=== PATIENT | female | born 1970 | race Caucasian/White ===

== ENCOUNTER 2018-09-03 22:19 | Observation (INO) | payer OTHER ==
--- NOTE | 2018-09-03 22:53 | ERPHSYRPT ---
- History of Present Illness Time Seen by Provider: 09/03/18 22:40 Historian: patient Exam Limitations: clinical condition Patient Subjective Stated Complaint: Pt c/o numerous complaints x 2-3 months, pt states this evening she started having severe chest and abd pain. pt adds she has had productive cough with nasal congestion x 2-3 days, dizziness x 2-3 days, vaginal bleeding x 2 weeks. has been having headaches for the last few months but worse today, et rash that was originally diagnosed as scabies but was resistent to repeated tx and then told was not scabies. pt c/o nausea and one episode of diarrhea yesterday. denies fever. Triage Nursing Assessment: [place]/warm/dry, resp easy, a&ox4, steady gait, no distress noted at this time. Physician History: PATIENT WITH A HISTORY OF SUBSTANCE ABUSE COMPLAINS OF INTERMITTENT GENERALIZED ABDOMINAL PAIN FOR 2-3 MONTHS, PRODUCTIVE COUGH YELLOW SPUTUM, NASAL CONGESTION. HAS ASSOCIATED CHEST PAIN LOWER RIB PAST COUPLE OF DAYS AND DIZZINESS. ADMITS TO TAKING HER FRIEND'S NEUROTIN 2 TABLETS. Timing/Duration: gradual onset Activities at Onset: none Quality: cramping Abdominal Pain Onset Location: generalized abdomen Pain Radiation: no radiation Severity of Pain-Max: moderate Severity of Pain-Current: moderate Modifying Factors: Improves With: coughing, position Associated Symptoms: chest pain Previous symptoms: same symptoms as today Allergies/Adverse Reactions: doxycycline Allergy (Verified 09/03/18 23:09) sulfamethoxazole [From Bactrim] Allergy (Verified 09/03/18 23:09) trimethoprim [From Bactrim] Allergy (Verified 09/03/18 23:09) Home Medications: No Reportable Medications [No Reported Medications] 09/03/18 [History] Hx Tetanus, Diphtheria Vaccination/Date Given: No Hx Influenza Vaccination/Date Given: No Hx Pneumococcal Vaccination/Date Given: No Immunizations Up to Date: No - Review of Systems Constitutional: No Fever, No Chills Eyes: No Symptoms Ears, Nose, & Throat: No Symptoms Respiratory: Cough, No Dyspnea Cardiac: No Symptoms, No Chest Pain, No Edema, No Syncope Abdominal/Gastrointestinal: Abdominal Pain, No Nausea, No Vomiting, No Diarrhea Genitourinary Symptoms: No Symptoms, No Dysuria Musculoskeletal: No Symptoms, No Back Pain, No Neck Pain Skin: No Rash Neurological: Dizziness, No Focal Weakness, No Sensory Changes Psychological: No Symptoms Endocrine: No Symptoms All Other Systems: Reviewed and Negative - Past Medical History Pertinent Past Medical History: Yes Psycho-Social History: Anxiety Other Medical History: back pain post fractures - Past Surgical History Past Surgical History: Yes Female Surgical History: Tubal Ligation - Social History Smoking Status: Current every day smoker Exposure to second hand smoke: Yes Drug Use: methamphetamines Patient Lives Alone: No - Female History Hx Last Menstrual Period: now Hx Now: No - Nursing Vital Signs Nursing Vital Signs: Initial Vital Signs Temperature 99.2 F 09/03/18 22:28 Pulse Rate 105 H 09/03/18 22:28 Respiratory Rate 16 09/03/18 22:28 Blood Pressure 124/95 09/03/18 22:28 O2 Sat by Pulse Oximetry 98 09/03/18 22:28 Pain Scale Pain Intensity 10 - Physical Exam General Appearance: lethargy (APPEARS DROWSY, EASILY AWAKENS TO VERBAL STIMULI) Eye Exam: PERRL/EOMI, eyes nml inspection Ears, Nose, Throat Exam: normal ENT inspection Neck Exam: normal inspection, non-tender, supple Respiratory Exam: normal breath sounds Cardiovascular Exam: regular rate/rhythm, normal heart sounds Gastrointestinal/Abdomen Exam: soft, normal bowel sounds (MINIMAL TENDERNESS) Back Exam: normal inspection, normal range of motion Neurologic Exam: alert, oriented x 3 Skin Exam: normal color, warm Lymphatic Exam: adenopathy SpO2 Interpretation: normal SpO2: 98 - Radiology Exams Chest X-ray Interpretation: Interpreted by me (RIGHT INFRAHILAR INFILTRATE) - CT Exams Abdomen/Pelvis CT Interpretation: Tele-radiologist Report (ABNORMAL APPEARANCE TO THE GALLBLADDER, STONES OF VARYING DENSITY IS SEEN PACKING THE LUMEN OF THE GALLBLADDER, WALL APPEARS THICKENED, ASSOCIATED PERICHOLECYSTIC FLUID COLLECTION. NO PATHOLOGIC DISTENTION COMMON BILE DUCT, MULTIPLE SMALL CALCIFIEC STONES,LOCATED IN THE COLLECTING SYSTEM OF BOTH KIDNEYS, NO HYDRONEPHROSIS, NO HYDROURETER, NO EVIDENCE OF APPENDICITIS) Ordered Tests: Active Orders 24 hr Category Date Time Status Up With Assistance ROUTINE Activity 09/04/18 02:17 Active Call Admit Doctor for Orders ON ADMISSION Care 09/04/18 02:18 Active Code Status Order ROUTINE Care 09/04/18 02:17 Active IV Care Q6H Care 09/04/18 02:17 Active Intake and Output Q12H Care 09/04/18 02:[address] in Observation ROUTINE Care 09/04/18 02:17 Active Vital Signs Q4H Care 09/04/18 02:17 Active NPO Diet 09/04/18 02:18 Active ABDOMEN AND PELVIS W/0 CONTRAS [CT] Stat Exams 09/04/18 00:43 Taken CHEST 1 VIEW (PORTABLE) Stat Exams 09/03/18 22:55 Taken AMYLASE Stat Lab 09/03/18 23:20 Completed BLOOD CULTURE Stat Lab 09/04/18 00:00 Received CBC W DIFF Stat Lab 09/03/18 23:20 Completed CMP Stat Lab 09/03/18 23:20 Completed HCG,QUALITATIVE URINE Stat Lab 09/03/18 22:40 Completed LIPASE Stat Lab 09/03/18 23:20 Completed PROTIME WITH INR Stat Lab 09/03/18 23:20 Completed TROPONIN Q3H Lab 09/03/18 23:21 Completed TROPONIN Q3H Lab 09/04/18 02:24 Received TROPONIN Q3H Lab 09/04/18 05:00 Ordered TROPONIN Q3H Lab 09/04/18 08:00 Ordered TROPONIN Q3H Lab 09/04/18 11:00 Ordered UA W/RFX UR CULTURE Stat Lab 09/03/18 22:40 Completed Urine Triage Profile Stat Lab 09/03/18 22:40 Completed Pulse Oximetry CONTINUOUS RT 09/04/18 02:19 Active Transfer Order Routine Transfer 09/04/18 Completed Medication Summary Generic Name Dose Route Start Last Admin Trade Name Freq PRN Reason Stop Dose Admin Piperacillin Sod/Tazobactam Sod 3.375 gm in 100 mls @ 200 mls/hr 09/04/18 06: 00 Zosyn 3.375gm/100 Ml D5w IV 10/04/18 05:59 Q6HT [facility] Sodium Chloride 1,000 mls @ 125 mls/hr 09/04/18 02:30 Sodium Chloride 0.9% 1000 Ml IV 10/04/18 02:29 .Q8H FEI Morphine Sulfate 4 mg 09/04/18 02:17 Morphine Sulfate 4 Mg Inj IV 09/09/18 02:16 Q4H PRN PRN PAIN Ondansetron HCl 4 mg 09/04/18 02:17 Zofran 4 Mg/2 Ml Vial IV 10/04/18 02:16 Q6H PRN PRN NAUSEA/VOMITING Pantoprazole Sodium 40 mg 09/04/18 10:00 Protonix 40 Mg Iv IV 10/04/18 09:59 Q24H10 FEI Discontinued Medications Generic Name Dose Route Start Last Admin Trade Name Dottie PRN Reason Stop Dose Admin Hydromorphone HCl 1 mg 09/04/18 02:04 09/04/18 02:29 Hydromorphone 1 Mg/Ml Ampule IV 09/04/18 02:05 1 mg STAT ONE Administration Hydromorphone HCl Confirm 09/04/18 02:22 Hydromorphone 1 Mg/Ml Ampule Administered 09/04/18 02:23 Dose 1 mg .ROUTE .STK-MED ONE Sodium Chloride 1,000 mls @ 500 mls/hr 09/03/18 23:00 09/03/18 23:13 Sodium Chloride 0.9% 1000 Ml IV 10/03/18 22:59 500 mls/hr .Q2H FEI Administration Piperacillin Sod/Tazobactam Sod 3.375 gm in 100 mls @ 200 mls/hr 09/04/18 02: 05 09/04/18 02:29 Zosyn 3.375gm/100 Ml D5w IV 09/04/18 02:34 200 mls/hr STAT STA 200 mls/hr Administration Piperacillin Sod/Tazobactam Sod Confirm 09/04/18 02:22 Zosyn 3.375gm/100 Ml D5w Administered 09/04/18 02:23 Dose 3.375 gm in 100 mls @ ud IV .STK-MED ONE Ondansetron HCl 4 mg 09/04/18 02:04 09/04/18 02:29 Zofran 4 Mg/2 Ml Vial IV 09/04/18 02:05 4 mg STAT ONE Administration Ondansetron HCl Confirm 09/04/18 02:22 Zofran 4 Mg/2 Ml Vial Administered 09/04/18 02:23 Dose 4 mg .ROUTE .STK-MED ONE Lab/Rad Data: Laboratory Result Diagrams 09/03/18 23:20 09/03/18 23:20 Laboratory Results 09/03/18 09/03/18 09/03/18 Range/Units 23:21 23:20 23:20 WBC (4.0-10.5) K/mm3 RBC (4.1-5.4) M/mm3 Hgb (12.0-16.0) gm/dl Hct (35-47) % MCV (78-100) fl MCH (26-32) pg MCHC (32-36) g/dl RDW (11.5-14.0) % Plt Count (150-450) K/mm3 MPV (6-9.5) fl Gran % (36.0-66.0) % Eos # (Auto) (0-0.5) Absolute Lymphs (auto) (1.0-4.6) Absolute Monos (auto) (0.0-1.3) Lymphocytes % (24.0-44.0) % Monocytes % (0.0-12.0) % Eosinophils % (0.00-5.0) % Basophils % (0.0-0.4) % Absolute Granulocytes (1.4-6.9) Basophils # (0-0.4) PT 11.5 (9.95-12.35) SECONDS INR 0.99 (0.8-3.0) Sodium (137-145) mmol/L Potassium (3.5-5.1) mmol/L Chloride (98-107) mmol/L Carbon Dioxide (22-30) mmol/L Anion Gap (5-15) MEQ/L BUN (7-17) mg/dL Creatinine (0.52-1.04) mg/dL Estimated GFR ML/MIN Glucose (74-106) mg/dL Calcium (8.4-10.2) mg/dL Total Bilirubin (0.2-1.3) mg/dL AST (14-36) U/L ALT (0-35) U/L Alkaline Phosphatase (38-126) U/L Troponin I 0.012 (0.000-0.034) ng/mL Serum Total Protein (6.3-8.2) g/dL Albumin (3.5-5.0) g/dL Amylase (30-110) U/L Lipase (23-300) U/L Urine Color (YELLOW) Urine Appearance (CLEAR) Urine pH (5-6) Ur Specific Halfway (1.005-1.025) Urine Protein (Negative) Urine Ketones (NEGATIVE) Urine Blood (0-5) [place]/ul Urine Nitrite (NEGATIVE) Urine Bilirubin (NEGATIVE) Urine Urobilinogen (0-1) mg/dL Ur Leukocyte Esterase (NEGATIVE) Urine WBC (Auto) (0-5) /HPF Urine RBC (Auto) (0-2) /HPF U Epithel Cells (Auto) (FEW) /HPF Urine Bacteria (Auto) (NEGATIVE) /HPF Urine Mucus (Auto) (NEGATIVE) /HPF Urine Culture Reflexed (NO) Urine Glucose (NEGATIVE) mg/dL Urine HCG, Qual (Negative) Urine Opiates Level (NEGATIVE) Ur Methadone (NEGATIVE) Urine Barbiturates (NEGATIVE) Ur Phencyclidine (PCP) (NEGATIVE) Urine Amphetamine (NEGATIVE) U Benzodiazepine Level (NEGATIVE) Urine Cocaine (NEGATIVE) Urine Marijuana (THC) (NEGATIVE) Influenza Type A Ag NEGATIVE (NEGATIVE) Influenza Type B Ag NEGATIVE (NEGATIVE) RSV (PCR) NEGATIVE (Negative) 09/03/18 09/03/18 09/03/18 Range/Units 23:20 23:20 22:40 WBC 10.9 H (4.0-10.5) K/mm3 RBC 3.97 L (4.1-5.4) M/mm3 Hgb 12.1 (12.0-16.0) gm/dl Hct 36.6 (35-47) % MCV 92.2 (78-100) fl MCH 30.4 (26-32) pg MCHC 33.1 (32-36) g/dl RDW 13.7 (11.5-14.0) % Plt Count 326 (150-450) K/mm3 MPV 11.0 H (6-9.5) fl Gran % 58.1 (36.0-66.0) % Eos # (Auto) 0.86 H (0-0.5) Absolute Lymphs (auto) 2.39 (1.0-4.6) Absolute Monos (auto) 1.28 (0.0-1.3) Lymphocytes % 21.9 L (24.0-44.0) % Monocytes % 11.7 (0.0-12.0) % Eosinophils % 7.9 H (0.00-5.0) % Basophils % 0.4 (0.0-0.4) % Absolute Granulocytes 6.34 (1.4-6.9) Basophils # 0.04 (0-0.4) PT (9.95-12.35) SECONDS INR (0.8-3.0) Sodium 139 (137-145) mmol/L Potassium 4.4 (3.5-5.1) mmol/L Chloride 104 (98-107) mmol/L Carbon Dioxide 24 (22-30) mmol/L Anion Gap 16.0 H (5-15) MEQ/L BUN 14 (7-17) mg/dL Creatinine 0.62 (0.52-1.04) mg/dL Estimated GFR > 60.0 ML/MIN Glucose 99 (74-106) mg/dL Calcium 9.4 (8.4-10.2) mg/dL Total Bilirubin 0.60 (0.2-1.3) mg/dL AST 50 H (14-36) U/L ALT 43 H (0-35) U/L Alkaline Phosphatase 136 H (38-126) U/L Troponin I (0.000-0.034) ng/mL Serum Total Protein 7.3 (6.3-8.2) g/dL Albumin 3.9 (3.5-5.0) g/dL Amylase 47 (30-110) U/L Lipase 33 (23-300) U/L Urine Color (YELLOW) Urine Appearance (CLEAR) Urine pH (5-6) Ur Specific Halfway (1.005-1.025) Urine Protein (Negative) Urine Ketones (NEGATIVE) Urine Blood (0-5) Kayden/ul Urine Nitrite (NEGATIVE) Urine Bilirubin (NEGATIVE) Urine Urobilinogen (0-1) mg/dL Ur Leukocyte Esterase (NEGATIVE) Urine WBC (Auto) (0-5) /HPF Urine RBC (Auto) (0-2) /HPF U Epithel Cells (Auto) (FEW) /HPF Urine Bacteria (Auto) (NEGATIVE) /HPF Urine Mucus (Auto) (NEGATIVE) /HPF Urine Culture Reflexed (NO) Urine Glucose (NEGATIVE) mg/dL Urine HCG, Qual NEGATIVE (Negative) Urine Opiates Level (NEGATIVE) Ur Methadone (NEGATIVE) Urine Barbiturates (NEGATIVE) Ur Phencyclidine (PCP) (NEGATIVE) Urine Amphetamine (NEGATIVE) U Benzodiazepine Level (NEGATIVE) Urine Cocaine (NEGATIVE) Urine Marijuana (THC) (NEGATIVE) Influenza Type A Ag (NEGATIVE) Influenza Type B Ag (NEGATIVE) RSV (PCR) (Negative) 04/11/19 04/11/19 Range/Units 22:40 22:40 WBC (4.0-10.5) K/mm3 RBC (4.1-5.4) M/mm3 Hgb (12.0-16.0) gm/dl Hct (35-47) % MCV (78-100) fl MCH (26-32) pg MCHC (32-36) g/dl RDW (11.5-14.0) % Plt Count (150-450) K/mm3 MPV (6-9.5) fl Gran % (36.0-66.0) % Eos # (Auto) (0-0.5) Absolute Lymphs (auto) (1.0-4.6) Absolute Monos (auto) (0.0-1.3) Lymphocytes % (24.0-44.0) % Monocytes % (0.0-12.0) % Eosinophils % (0.00-5.0) % Basophils % (0.0-0.4) % Absolute Granulocytes (1.4-6.9) Basophils # (0-0.4) PT (9.95-12.35) SECONDS INR (0.8-3.0) Sodium (137-145) mmol/L Potassium (3.5-5.1) mmol/L Chloride (98-107) mmol/L Carbon Dioxide (22-30) mmol/L Anion Gap (5-15) MEQ/L BUN (7-17) mg/dL Creatinine (0.52-1.04) mg/dL Estimated GFR ML/MIN Glucose (74-106) mg/dL Calcium (8.4-10.2) mg/dL Total Bilirubin (0.2-1.3) mg/dL AST (14-36) U/L ALT (0-35) U/L Alkaline Phosphatase (38-126) U/L Troponin I (0.000-0.034) ng/mL Serum Total Protein (6.3-8.2) g/dL Albumin (3.5-5.0) g/dL Amylase (30-110) U/L Lipase (23-300) U/L Urine Color YELLOW (YELLOW) Urine Appearance SLIGHTLY CLOUDY (CLEAR) Urine pH 7.0 (5-6) Ur Specific Halfway 1.017 (1.005-1.025) Urine Protein NEGATIVE (Negative) Urine Ketones NEGATIVE (NEGATIVE) Urine Blood MODERATE (0-5) Kayden/ul Urine Nitrite NEGATIVE (NEGATIVE) Urine Bilirubin NEGATIVE (NEGATIVE) Urine Urobilinogen NEGATIVE (0-1) mg/dL Ur Leukocyte Esterase NEGATIVE (NEGATIVE) Urine WBC (Auto) NONE (0-5) /HPF Urine RBC (Auto) 3-5 (0-2) /HPF U Epithel Cells (Auto) RARE (FEW) /HPF Urine Bacteria (Auto) NONE (NEGATIVE) /HPF Urine Mucus (Auto) SLIGHT (NEGATIVE) /HPF Urine Culture Reflexed NO (NO) Urine Glucose NEGATIVE (NEGATIVE) mg/dL Urine HCG, Qual (Negative) Urine Opiates Level NEGATIVE (NEGATIVE) Ur Methadone NEGATIVE (NEGATIVE) Urine Barbiturates NEGATIVE (NEGATIVE) Ur Phencyclidine (PCP) NEGATIVE (NEGATIVE) Urine Amphetamine POSITIVE (NEGATIVE) U Benzodiazepine Level NEGATIVE (NEGATIVE) Urine Cocaine NEGATIVE (NEGATIVE) Urine Marijuana (THC) NEGATIVE (NEGATIVE) Influenza Type A Ag (NEGATIVE) Influenza Type B Ag (NEGATIVE) RSV (PCR) (Negative) - Progress Progress Note: 09/03/18 23:02 IV NORMAL SALINE 500ML/HR, ZOFRAN 4MG, DILAUDID 1MG, ZOSYN 3.375GM IVPB AFTER 2 SETS OF BLOOD CULTURES OBTAINED 09/04/18 02:[address] Galicia (DISCUSSED WITH DR GALICIA AT 0200 FOR OBSERVATION, DR Peter PERSAUD CONSULTED FOR SURGICAL CONSULT AT 0210) - Departure Departure Disposition: Observation Clinical Impression: ACUTE CHOLECYSTITIS/CHOLELITHIASIS Condition: Stable Critical Care Time: No
[2018-09-03] MEDS ORDERED: Sodium Chloride 0.9% 1000 ML 1,000 ML IV SCH (23:00)
[2018-09-03] MEDS ORDERED: Sodium Chloride 0.9% 1000 ML 1,000 ML ONE (23:08)
[2018-09-03 23:15] LABS: Appearance SLIGHTLY CLOUDY (CLEAR); Bilirubin NEGATIVE (NEGATIVE); Blood MODERATE Ery/ul (0-5); Epithelial Cells RARE /HPF (FEW); Glucose NEGATIVE (NEGATIVE); Ketones NEGATIVE (NEGATIVE); Leukocyte Esterase NEGATIVE (NEGATIVE); Mucus SLIGHT /HPF (NEGATIVE); Nitrite NEGATIVE (NEGATIVE); Protein,Urine Dip NEGATIVE (Negative); Specific Gravity 1.017 (1.005-1.025); Urobilinogen NEGATIVE mg/dL (0-1)
[2018-09-03 23:24] LABS: BASOPHIL % 0.4 % (0.0-0.4); Basophil (Absolute #) 0.04 (0-0.4); Eosinophil % 7.9 % (0.00-5.0); Eosinophil (Absolute #) 0.86 (0-0.5); Granulocyte Absolute (ANC) 6.34 (1.4-6.9); Granulocytes % 58.1 % (36.0-66.0); Hematocrit 36.6 % (35-47); Hemoglobin 12.1 gm/dl (12.0-16.0); Lymphocyte (Absolute #) 2.39 (1.0-4.6); Lymphocytes % 21.9 % (24.0-44.0); Mean Cell Volume 92.2 fl (78-100); Mean Corpuscular Hgb Concent. 33.1 g/dl (32-36); Monocyte (Absolute #) 1.28 (0.0-1.3); Monocytes % 11.7 % (0.0-12.0); Platelet Count 326 K/mm3 (150-450); Red Blood Count 3.97 M/mm3 (4.1-5.4); Red Cell Distribution Width 13.7 % (11.5-14.0); White Blood Count 10.9 K/mm3 (4.0-10.5)
[2018-09-03 23:25] LABS: Mean Corpuscular Hemoglobin 30.4 pg (26-32)
[2018-09-03 23:25] LABS: Barbiturate,Urine NEGATIVE (NEGATIVE); Benzodiazepine,Urine NEGATIVE (NEGATIVE); Cocaine,Urine NEGATIVE (NEGATIVE); Methadone,Urine NEGATIVE (NEGATIVE); Opiate,Urine NEGATIVE (NEGATIVE); PCP,Urine NEGATIVE (NEGATIVE); THC,Urine NEGATIVE (NEGATIVE)
[2018-09-03 23:47] LABS: INR 0.99 (0.8-3.0); PROTIME 11.5 SECONDS (9.95-12.35)
[2018-09-03 23:51] LABS: ALBUMIN 3.9 g/dL (3.5-5.0); ALKALINE PHOSPHATASE 136 U/L (38-126); AMYLASE 47 U/L (30-110); BLOOD UREA NITROGEN 14 mg/dL (7-17); CHLORIDE 104 mmol/L (98-107); Calcium 9.4 mg/dL (8.4-10.2); Carbon Dioxide 24 mmol/L (22-30); Creatinine 1 0.62 mg/dL (0.52-1.04); Glucose 99 mg/dL (74-106); LIPASE 33 U/L (23-300); Potassium 4.4 mmol/L (3.5-5.1); SGOT/AST 50 U/L (14-36); SGPT/ALT 43 U/L (0-35); SODIUM 139 mmol/L (137-145); Total Protein 7.3 g/dL (6.3-8.2)
[2018-09-03 23:56] LABS: Amphetamine,Urine POSITIVE (NEGATIVE)
[2018-09-04 00:17] LABS: INFLUENZA A NEGATIVE (NEGATIVE); INFLUENZA B NEGATIVE (NEGATIVE); RESPIRATORY SYNCTIAL VIRUS NEGATIVE (Negative)
[2018-09-04] MEDS ORDERED: Zofran 4 MG/2 ML VIAL IV ONE (02:04)
[2018-09-04] MEDS ORDERED: Hydromorphone 1 mg/ml Ampule IV ONE (02:04)
[2018-09-04] MEDS ORDERED: Zosyn 3.375GM/100 Ml D5W 3.375 GM/100 ML IVPB IV STA (02:05)
[2018-09-04] MEDS ORDERED: MORPHINE SULFATE 4 MG INJ IV PRN (02:17)
[2018-09-04] MEDS ORDERED: Zofran 4 MG/2 ML VIAL IV PRN (02:17)
[2018-09-04] MEDS ORDERED: Hydromorphone 1 mg/ml Ampule ONE (02:22)
[2018-09-04] MEDS ORDERED: Zofran 4 MG/2 ML VIAL ONE (02:22)
[2018-09-04] MEDS ORDERED: Zosyn 3.375GM/100 Ml D5W 3.375 GM/100 ML IVPB IV ONE (02:22)
[2018-09-04] MEDS: Sodium Chloride 0.9% 1000 ML 1,000 ML IV SCH ×2 (03:39→14:39)
[2018-09-04] MEDS ORDERED: Zosyn 3.375GM/100 Ml D5W 3.375 GM/100 ML IVPB IV SCH ×2 (06:00→16:00)
--- NOTE | 2018-09-04 08:09 | HP ---
CHIEF COMPLAINT: Abdominal pain, nausea. HISTORY OF PRESENT ILLNESS: The patient reports that the pain in the right upper quadrant she has been having off and on for the past couple of years has gotten worse recently. The patient reports she had been in the emergency room at other facilities, [facility] recently, but she had cursory ultrasound done in the emergency room by the emergency room doctor who told her everything was normal. However the patient continued to have problems. The patient has other complaints concerning for the possibility of scabies infections and infections on her fingertips. The patient is currently not seeing a regular physician. MEDICATIONS: She has no home medications. ALLERGIES: BACTRIM. PHYSICAL EXAMINATION: Revealed a disheveled appearing 48 year-old white female who rambles during the interview with different complaints. The patient's vital signs showed a temperature 99.2F, pulse 105, respiratory rate 16, blood pressure 124/95. O2 saturation 98%. HEENT: Normocephalic, atraumatic. Pupils equal round reactive to light. Extraocular movements intact. Oropharynx is pink and moist. NECK: Supple without lymphadenopathy, thyromegaly or JVD. CHEST: Clear to auscultation. HEART: Regular rate and rhythm without murmurs, rubs or gallops. ABDOMEN: Tender in the right upper quadrant. No palpable masses were felt. EXTREMITIES: Without cyanosis, clubbing or edema. NEUROLOGIC: The patient is alert and oriented x3 with no focal deficits noted. LAB DATA AND TESTS: CT scan concerning for distended gallbladder within the field with mixed density gallstones and some gallbladder wall thickening and pericholecystic fluid collection, bilateral nonobstructing renal stones and possible infiltrate in the lateral segment of the right mid lung. The patient's lab studies showed a troponin less than 0.012. Pro-time 0.99. Influenza A, B and respiratory syncytial virus are negative. The patient's white count was slightly elevated at 10,000. Her hemoglobin was normal. PLT count was normal. The liver enzymes were slightly elevated with an AST of 15, ALT 43, alkaline phosphatase 136. Electrolytes were normal. ASSESSMENT: A patient with right upper quadrant abdominal pain which is chronic in nature with findings on CT scan concerning for acute cholecystitis. The patient has been admitted to the hospital for IV antibiotics and surgical consultation. The patient's other complaints have to do with possible scabies infections for which she reports she was treated for previously and she does have findings in her skin consistent with this. The patient otherwise appears to be essentially healthy. She did have significant finding of urine positive for amphetamines. The patient is currently placed on Zosyn, IV fluids, gut rest and surgical consultation.
--- NOTE | 2018-09-04 08:50 | XRAY ---
Indication: Abdomen pain. Multiple contiguous axial images obtained through the abdomen and pelvis without contrast as ordered. Comparison: None Lung bases demonstrates patchy right middle lobe interstitial alveolar opacity and calcified granuloma. Left lung bases clear. Heart is not enlarged. Small hiatal hernia. Stomach is distended with food/fluid. Noncontrasted stomach and bowel loops appear nonobstructed. Appendix not seen. Mild diffuse scattered colonic fecal debris. Gallbladder is distended with multiple gallstones and sludge. Query gallbladder wall thickening/stranding. There is hepatosplenomegaly with liver measuring 21 cm and the spleen measuring 12.6 cm. Nonobstructing bilateral renal micro-calculi. Bilateral tubal ligation clips. No free fluid/air. Remaining liver, pancreas, spleen, adrenal glands, kidneys, ureters, bladder, uterus, and aorta appear unremarkable for noncontrast exam. Osseous structures intact with remote-appearing L1 compression deformity with approximately 50% height loss. Also L1-L2 opposing endplate sclerosis/spurring either degenerative versus old injury. Old right inferior pubic ramus fracture. Impression: 1. Abnormal distended gallbladder with gallstones and sludge. Query gallbladder wall thickening/stranding concerning for cholecystitis. Sonogram may yield further information. 2. Fecal stasis without obstruction and small hiatal hernia. 3. Hepatosplenomegaly and nonobstructing bilateral renal micro-calculi. 4. Right middle lobe interstitial alveolar opacity. Rule out inflammatory/infectious process. 5. Incidental chronic bony findings. Comment: Preliminary interpretation was made by [facility]. No critical discrepancy. CT DI 20.10
--- NOTE | 2018-09-04 08:52 | XRAY ---
Indication: Cough. Comparison: None Portable chest demonstrates subtle asymmetric right infrahilar infiltrate/atelectasis and calcified granuloma. Remaining heart and lungs unremarkable. Bony thorax intact with old right clavicle fracture.
[2018-09-04] MEDS ORDERED: PROTONIX 40 MG IV IV SCH (10:00)
--- NOTE | 2018-09-04 11:10 | XRAY ---
Indication: Abnormal gallbladder on recent CT. Two-dimensional gallbladder sonogram performed. Comparison: None Gallbladder is abnormally distended up to 14.5 cm in length with numerous gallstones. Gallbladder wall is thickened measuring 4 mm. No pericholecystic fluid. Common bile duct measures 6.2 mm. No intrahepatic biliary distention. Remaining visualized portions of the liver, pancreas, and right kidney appear sonographically normal. Right kidney measures 11.2 cm in length. No ascites. Impression: Distended gallbladder with cholelithiasis and wall thickening but no pericholecystic fluid. Rule out chronic cholecystitis.
[2018-09-04 14:20] VITALS: O2SAT 97
[2018-09-04 16:59] VITALS: BP 102/59; PULSE 83
== END 2018-09-04 18:03 | disposition left against medical advice (07) ==
LOC: ED 22:19 → MED SURG 09-04 02:51
PROVIDERS: ADMIT Family Medicine; ATTEND Family Medicine
DX: K81.0 Acute cholecystitis (principal); R10.11 Right upper quadrant pain
CPT/HCPCS: 36415; 71045; 74176; 76705; 80053; 80307; 81001; 82150; 83690; 84484; 84703; 85025; 85610; 87040; 87631; 94762; 96360; 96361; 96365; 96374; 96375; 99285; G0378; J1170; J2405; J2543

== ENCOUNTER 2020-10-02 07:16 | Emergency (ER) | payer OTHER ==
[2020-10-02] MEDS ORDERED: Sodium Chloride 0.9% 1000 ML 1,000 ML IV STA (07:45)
[2020-10-02] MEDS ORDERED: TORAdol 30 mg Injection IV ONE (07:48)
[2020-10-02] MEDS ORDERED: Compazine 10 MG/2 ML IV ONE (07:49)
[2020-10-02] MEDS ORDERED: Sodium Chloride 0.9% 1000 ML 1,000 ML ONE (07:57)
[2020-10-02] MEDS ORDERED: Compazine 10 MG/2 ML ONE (07:57)
[2020-10-02] MEDS ORDERED: TORAdol 30 mg Injection ONE (07:57)
--- NOTE | 2020-10-02 07:58 | ERPHSYRPT ---
- History of Present Illness Time Seen by Provider: 10/02/20 07:30 Source: patient Exam Limitations: no limitations Patient Subjective Stated Complaint: Pt states that she took a fluconazole last night and has been sick since with a headache and N&V Triage Nursing Assessment: Pt brought to the ER by her boyfriend, hypotensive, rates pain 10/10, appears to be mentally challenged, states that fluconazole made her sick once before, pulses normal, doesn't appear to be in any distress Physician History: Patient is a 50-year-old female presents to our ED with her significant other with complaints of a headache rated 7 out of 10. Headache started yesterday evening. Headache is associated with nausea and vomiting. Patient states that she took fluconazole for her finger nail fungus. Shortly thereafter she developed a headache primarily at the top and front aspect of her head. Patient has had fluconazole in the past and it also created a significant headache at that time. No trauma. No fever. No neck pain. No photophobia. No chest pain or shortness of breath. Symptoms are constant. Symptoms are moderate in intensity. Patient took [id number] NSAID with little to no relief. Patient denies any urinary symptoms. Patient states she is otherwise healthy. Patient voices no other complaints or concerns at this time. Timing/Duration: yesterday Severity: moderate Modifying Factors: Improves With: nothing Associated Symptoms: nausea, vomiting, No shortness of breath, No diaphoresis, No cough, No chest pain, No fever, No headaches, No loss of appetite Allergies/Adverse Reactions: doxycycline Allergy (Verified 10/02/20 07:32) sulfamethoxazole [From Bactrim] Allergy (Verified 10/02/20 07:32) trimethoprim [From Bactrim] Allergy (Verified 10/02/20 07:32) Home Medications: No Reportable Medications [No Reported Medications] 10/02/20 [History] Hx Tetanus, Diphtheria Vaccination/Date Given: No Hx Influenza Vaccination/Date Given: No Hx Pneumococcal Vaccination/Date Given: No Travel Risk - International Travel Have you traveled outside of the country in past 3 weeks: No - Coronavirus Screening Are you exhibiting any of the following symptoms?: No Close contact with a COVID-19 positive Pt in past 14-21 Days: No - Vaccine Status Have you recieved a Covid-19 vaccination: No - Review of Systems Constitutional: No Symptoms, No Fever, No Chills Eyes: No Symptoms Ears, Nose, & Throat: No Symptoms Respiratory: No Symptoms, No Cough, No Dyspnea Cardiac: No Symptoms, No Chest Pain, No Edema, No Syncope Abdominal/Gastrointestinal: No Symptoms, No Abdominal Pain, No Nausea, No Vomiting, No Diarrhea Genitourinary Symptoms: No Symptoms, No Dysuria Musculoskeletal: No Symptoms, No Back Pain, No Neck Pain Skin: No Symptoms, No Rash Neurological: No Symptoms, No Dizziness, No Focal Weakness, No Sensory Changes Psychological: No Symptoms Endocrine: No Symptoms Hematologic/Lymphatic: No Symptoms Immunological/Allergic: No Symptoms All Other Systems: Reviewed and Negative - Past Medical History Pertinent Past Medical History: Yes Psycho-Social History: Anxiety Other Medical History: back pain, post fractures - Past Surgical History Past Surgical History: Yes Female Surgical History: Tubal Ligation - Social History Smoking Status: Current every day smoker Exposure to second hand smoke: Yes Drug Use: methamphetamines Patient Lives Alone: No - Female History Hx Now: No (tubal) - Nursing Vital Signs Nursing Vital Signs: Initial Vital Signs Temperature 98.0 F 10/02/20 07:20 Pulse Rate 93 H 10/02/20 07:20 Blood Pressure 90/54 10/02/20 07:20 O2 Sat by Pulse Oximetry 96 10/02/20 07:20 Pain Scale Pain Intensity 10 - Physical Exam General Appearance: no apparent distress, alert Eye Exam: PERRL/EOMI, eyes nml inspection Ears, Nose, Throat Exam: normal ENT inspection, TMs normal, pharynx normal, moist mucous membranes Neck Exam: normal inspection, non-tender, supple, full range of motion Respiratory Exam: normal breath sounds, lungs clear, No respiratory distress Cardiovascular Exam: regular rate/rhythm, normal heart sounds, normal peripheral pulses Gastrointestinal/Abdomen Exam: soft, normal bowel sounds, No tenderness, No mass Back Exam: normal inspection, normal range of motion, No CVA tenderness, No vertebral tenderness Extremity Exam: normal inspection, normal range of motion, pelvis stable Neurologic Exam: alert, oriented x 3, cooperative, normal mood/affect, nml cerebellar function, nml station & gait, sensation nml, No motor deficits Skin Exam: normal color, warm, dry, No rash Lymphatic Exam: No adenopathy SpO2 Interpretation: normal SpO2: 96 O2 Delivery: Room Air - Course Nursing assessment & vital signs reviewed: Yes - CT Exams Head CT Interpretation: Tele-radiologist Report (Normal CT head without contrast exam.) Ordered Tests: Active Orders 24 hr Category Date Time Status IV Insertion STAT Care 10/02/20 07:45 Active Pulse Oximetry (ED) STAT Care 10/02/20 07:45 Active HEAD WITHOUT CONTRAST [CT] Stat Exams 10/02/20 07:45 Completed BLOOD CULTURE Stat Lab 10/02/20 08:49 Ordered CBC W DIFF Stat Lab 10/02/20 07:52 Completed CMP Stat Lab 10/02/20 07:52 Completed HCG,QUALITATIVE URINE Stat Lab 10/02/20 07:55 Completed POCT GLUCOSE Stat Lab 10/02/20 07:26 Completed POCT GLUCOSE Stat Lab 10/02/20 07:26 Completed UA W/RFX UR CULTURE Stat Lab 10/02/20 07:55 Completed Medication Summary Discontinued Medications Generic Name Dose Route Start Last Admin Trade Name Freq PRN Reason Stop Dose Admin Sodium Chloride 1,000 mls @ 999 mls/hr 10/02/20 07:45 10/02/20 08:01 Sodium Chloride 0.9% 1000 Ml IV 10/02/20 08:45 999 mls/hr .Q1H1M STA Administration Sodium Chloride Confirm 10/02/20 07:57 Sodium Chloride 0.9% 1000 Ml Administered 10/02/20 07:58 Dose 1,000 mls @ ud .ROUTE .STK-MED ONE Ketorolac Tromethamine 30 mg 10/02/20 07:48 10/02/20 08:01 Toradol 30 Mg Injection IV 10/02/20 07:49 30 mg STAT ONE Administration Ketorolac Tromethamine Confirm 10/02/20 07:57 Toradol 30 Mg Injection Administered 10/02/20 07:58 Dose 30 mg .ROUTE .STK-MED ONE Prochlorperazine Edisylate 10 mg 10/02/20 07:49 10/02/20 08:01 Compazine 10 Mg/2 Ml IV 10/02/20 07:50 10 mg STAT ONE Administration Prochlorperazine Edisylate Confirm 10/02/20 07:57 Compazine 10 Mg/2 Ml Administered 10/02/20 07:58 Dose 10 mg .ROUTE .STK-MED ONE Lab/Rad Data: Laboratory Result Diagrams 10/02/20 07:52 10/02/20 07:52 Laboratory Results 10/02/20 10/02/20 10/02/20 Range/Units 07:55 07:55 07:52 WBC (4.0-10.5) K/mm3 RBC (4.1-5.4) M/mm3 Hgb (12.0-16.0) gm/dl Hct (35-47) % MCV (78-100) fl MCH (26-32) pg MCHC (32-36) g/dl RDW (11.5-14.0) % Plt Count (150-450) K/mm3 MPV (7.5-11.0) fl Gran % (36.0-66.0) % Eos # (Auto) (0-0.5) Absolute Lymphs (auto) (1.0-4.6) Absolute Monos (auto) (0.0-1.3) Lymphocytes % (24.0-44.0) % Monocytes % (0.0-12.0) % Eosinophils % (0.00-5.0) % Basophils % (0.0-0.4) % Absolute Granulocytes (1.4-6.9) Basophils # (0-0.4) Sodium 136 L (137-145) mmol/L Potassium 3.9 (3.5-5.1) mmol/L Chloride 100 (98-107) mmol/L Carbon Dioxide 25 (22-30) mmol/L Anion Gap 14.4 (5-15) MEQ/L BUN 16 (7-17) mg/dL Creatinine 0.68 (0.52-1.04) mg/dL Estimated GFR > 60.0 ML/MIN Glucose 109 H (74-106) mg/dL POC Glucometer (74 to 106) mg/dL Calcium 9.4 (8.4-10.2) mg/dL Total Bilirubin 0.70 (0.2-1.3) mg/dL AST 88 H (14-36) U/L ALT 96 H (0-35) U/L Alkaline Phosphatase 183 H (38-126) U/L Serum Total Protein 7.4 (6.3-8.2) g/dL Albumin 4.3 (3.5-5.0) g/dL Urine Color KETTY (YELLOW) Urine Appearance CLEAR (CLEAR) Urine pH 6.0 (5-6) Ur Specific [place] 1.024 (1.005-1.025) Urine Protein NEGATIVE (Negative) Urine Ketones NEGATIVE (NEGATIVE) Urine Blood NEGATIVE (0-5) Kayden/ul Urine Nitrite NEGATIVE (NEGATIVE) Urine Bilirubin NEGATIVE (NEGATIVE) Urine Urobilinogen NEGATIVE (0-1) mg/dL Ur Leukocyte Esterase NEGATIVE (NEGATIVE) Urine WBC (Auto) 0-2 (0-5) /HPF Urine RBC (Auto) 0-2 (0-2) /HPF U Epithel Cells (Auto) RARE (FEW) /HPF Urine Bacteria (Auto) NONE (NEGATIVE) /HPF Urine Mucus (Auto) SLIGHT (NEGATIVE) /HPF Urine Culture Reflexed NO (NO) Urine Glucose NEGATIVE (NEGATIVE) mg/dL Urine HCG, Qual NEGATIVE (Negative) 10/02/20 10/02/20 10/02/20 Range/Units 07:52 07:26 07:26 WBC 15.9 H (4.0-10.5) K/mm3 RBC 4.50 (4.1-5.4) M/mm3 Hgb 13.8 (12.0-16.0) gm/dl Hct 40.5 (35-47) % MCV 90.0 (78-100) fl MCH 30.7 (26-32) pg MCHC 34.1 (32-36) g/dl RDW 13.2 (11.5-14.0) % Plt Count 405 (150-450) K/mm3 MPV 10.7 (7.5-11.0) fl Gran % 86.1 H (36.0-66.0) % Eos # (Auto) 0.90 H (0-0.5) Absolute Lymphs (auto) 0.61 L (1.0-4.6) Absolute Monos (auto) 0.69 (0.0-1.3) Lymphocytes % 3.8 L (24.0-44.0) % Monocytes % 4.3 (0.0-12.0) % Eosinophils % 5.7 H (0.00-5.0) % Basophils % 0.1 (0.0-0.4) % Absolute Granulocytes 13.67 H (1.4-6.9) Basophils # 0.02 (0-0.4) Sodium (137-145) mmol/L Potassium (3.5-5.1) mmol/L Chloride (98-107) mmol/L Carbon Dioxide (22-30) mmol/L Anion Gap (5-15) MEQ/L BUN (7-17) mg/dL Creatinine (0.52-1.04) mg/dL Estimated GFR ML/MIN Glucose (74-106) mg/dL POC Glucometer 97 97 (74 to 106) mg/dL Calcium (8.4-10.2) mg/dL Total Bilirubin (0.2-1.3) mg/dL AST (14-36) U/L ALT (0-35) U/L Alkaline Phosphatase (38-126) U/L Serum Total Protein (6.3-8.2) g/dL Albumin (3.5-5.0) g/dL Urine Color (YELLOW) Urine Appearance (CLEAR) Urine pH (5-6) Ur Specific [place] (1.005-1.025) Urine Protein (Negative) Urine Ketones (NEGATIVE) Urine Blood (0-5) Kayden/ul Urine Nitrite (NEGATIVE) Urine Bilirubin (NEGATIVE) Urine Urobilinogen (0-1) mg/dL Ur Leukocyte Esterase (NEGATIVE) Urine WBC (Auto) (0-5) /HPF Urine RBC (Auto) (0-2) /HPF U Epithel Cells (Auto) (FEW) /HPF Urine Bacteria (Auto) (NEGATIVE) /HPF Urine Mucus (Auto) (NEGATIVE) /HPF Urine Culture Reflexed (NO) Urine Glucose (NEGATIVE) mg/dL Urine HCG, Qual (Negative) - Progress Progress: improved Progress Note: 10/02/20 09:06 Patient reassessed. Headache significantly improved. Repeat neuro exam within normal limits. Patient states he is ready for discharge. Patient has a leukocytosis. No fever. No nidus of infection observed. Blood cultures obtained. Mild hyponatremic. Patient received a liter IV fluids. No nausea or vomiting observed in our ED. Patient denies feeling nauseous. Vital stable. Patient blood pressure slightly on the lower side upon arrival. After liter of IV fluids blood pressure normalized to 117/82. There is a slight elevation in liver enzymes however this is likely due to the oral antifungal medication she is currently taking. Will discharge at this time. Patient follow-up with her primary care doctor within 48 hours for reevaluation. 10/02/20 09:09 05/10/21 09:11 Counseled pt/family regarding: lab results, diagnosis, need for follow-up, rad results - Departure Departure Disposition: Home Clinical Impression: Migraine, Leukocytosis, Hyponatremia, Nausea & vomiting, Dehydration Condition: Stable Critical Care Time: No Referrals: ASHANTI VILLANUEVA [Primary Care Provider] - Additional Instructions: Discharge/Care Plan LYDIA RICHEY was seen on 10/02/20 in the Emergency Room. The patient was counseled regarding Diagnosis,Lab results, Imaging studies, need for follow up and when to return to the Emergency Room. Prescriptions given: Discharge Note I have spoken with the patient and/or caregivers. I have explained the patient's condition, diagnosis and treatment plan based on the information available to me at this time. I have answered the patient's and/or caregiver's questions and addressed any concerns. The patient and/or caregivers have as good understanding of the patient's diagnosis, condition and treatment plan as can be expected at this point. The vital signs have been stable. The patient's condition is stable and appropriate for discharge from the emergency department. The patient will pursue further outpatient evaluation with the primary care physician or other designated or consulting physician as outlined in the discharge instructions. The patient and/or caregivers are agreeable to this plan of care and follow-up instructions have been explained in detail. The patient and/or caregivers have received these instruction. The patient/and or caregivers are aware that any significant change in condition or worsening of symptoms should prompt an immediate return to this or the closest emergency department or call 911.
[2020-10-02 08:04] LABS: Absolute Neutrophil Ct (ANC) 13.67 (1.4-6.9); BASOPHIL % 0.1 % (0.0-0.4); Basophil (Absolute #) 0.02 (0-0.4); Eosinophil % 5.7 % (0.00-5.0); Hematocrit 40.5 % (35-47); Hemoglobin 13.8 gm/dl (12.0-16.0); Lymphocyte (Absolute #) 0.61 (1.0-4.6); Lymphocytes % 3.8 % (24.0-44.0); Mean Corpuscular Hemoglobin 30.7 pg (26-32); Mean Corpuscular Hgb Concent. 34.1 g/dl (32-36); Mean Platelet Volume 10.7 fl (7.5-11.0); Monocyte (Absolute #) 0.69 (0.0-1.3); Monocytes % 4.3 % (0.0-12.0); Neutrophil % 86.1 % (36.0-66.0); Platelet Count 405 K/mm3 (150-450); Red Cell Distribution Width 13.2 % (11.5-14.0); White Blood Count 15.9 K/mm3 (4.0-10.5)
[2020-10-02 08:05] LABS: Appearance CLEAR (CLEAR); Bilirubin NEGATIVE (NEGATIVE); Blood NEGATIVE Ery/ul (0-5); Epithelial Cells RARE /HPF (FEW); Glucose NEGATIVE (NEGATIVE); Ketones NEGATIVE (NEGATIVE); Leukocyte Esterase NEGATIVE (NEGATIVE); Mucus SLIGHT /HPF (NEGATIVE); Nitrite NEGATIVE (NEGATIVE); Protein,Urine Dip NEGATIVE (Negative); RBC 0-2 /HPF (0-2); Specific Gravity 1.024 (1.005-1.025); Urobilinogen NEGATIVE mg/dL (0-1); WBC 0-2 /HPF (0-5)
[2020-10-02 08:17] LABS: ALBUMIN 4.3 g/dL (3.5-5.0); ALKALINE PHOSPHATASE 183 U/L (38-126); ANION GAP 14.4 MEQ/L (5-15); BLOOD UREA NITROGEN 16 mg/dL (7-17); CHLORIDE 100 mmol/L (98-107); Calcium 9.4 mg/dL (8.4-10.2); Carbon Dioxide 25 mmol/L (22-30); Creatinine 1 0.68 mg/dL (0.52-1.04); EST GLOMERULAR FILTRATION RATE > 60.0 ML/MIN; Glucose 109 mg/dL (74-106); Potassium 3.9 mmol/L (3.5-5.1); SGOT/AST 88 U/L (14-36); SGPT/ALT 96 U/L (0-35); SODIUM 136 mmol/L (137-145); Total Protein 7.4 g/dL (6.3-8.2)
--- NOTE | 2020-10-02 08:39 | XRAY ---
Indication: Frontal headache. No known injury. Multiple contiguous axial images obtained through the head without contrast. Comparison: None. Normal appearing brain parenchyma, ventricles, and bony calvarium. Visualized paranasal sinuses and mastoid air cells are clear. Impression: Normal CT head without contrast exam.
[2020-10-02] MEDS ORDERED: Inapsine 5 MG/2 ML IV ONE (09:15)
[2020-10-02] MEDS ORDERED: Inapsine 5 MG/2 ML ONE (09:17)
[2020-10-02 10:04] VITALS: BP 112/79; PULSE 82; O2SAT 99
== END 2020-10-02 10:12 | disposition home or self-care (01) ==
LOC: ED 07:16
DX: G43.909 Migraine, unspecified, not intractable, without status migrainosus (principal); D72.829 Elevated white blood cell count, unspecified; E87.1 Hypo-osmolality and hyponatremia; R11.2 Nausea with vomiting, unspecified; E86.0 Dehydration
CPT/HCPCS: 36000; 36415; 70450; 80053; 81001; 82947; 84703; 85025; 87040; 94760; 96360; 96374; 96375; 99284; J1885

== ENCOUNTER 2021-08-23 21:27 | Emergency (ER) | payer OTHER ==
[2021-08-23] MEDS ORDERED: Sodium Chloride 0.9% 1000 ML 1,000 ML IV STA (22:06)
[2021-08-23] MEDS ORDERED: Zofran 4 MG/2 ML VIAL IV ONE (22:06)
[2021-08-23] MEDS ORDERED: Zofran 4 MG/2 ML VIAL ONE (22:10)
[2021-08-23] MEDS ORDERED: Sodium Chloride 0.9% 1000 ML 1,000 ML ONE (22:10)
[2021-08-23 22:18] LABS: Absolute Neutrophil Ct (ANC) 5.88 (1.4-6.9); Basophil (Absolute #) 0.01 (0-0.4); Eosinophil % 0.4 % (0.00-5.0); Eosinophil (Absolute #) 0.04 (0-0.5); Hematocrit 43.6 % (35-47); Hemoglobin 14.5 gm/dl (12.0-16.0); Lymphocyte (Absolute #) 3.21 (1.0-4.6); Lymphocytes % 31.3 % (24.0-44.0); Mean Cell Volume 92.6 fl (78-100); Mean Corpuscular Hemoglobin 30.8 pg (26-32); Mean Corpuscular Hgb Concent. 33.3 g/dl (32-36); Mean Platelet Volume 10.7 fl (7.5-11.0); Monocyte (Absolute #) 1.13 (0.0-1.3); Neutrophil % 57.2 % (36.0-66.0); Platelet Count 433 K/mm3 (150-450); Red Blood Count 4.71 M/mm3 (4.1-5.4); Red Cell Distribution Width 14.9 % (11.5-14.0); White Blood Count 10.3 K/mm3 (4.0-10.5)
[2021-08-23 22:22] LABS: ALBUMIN 4.3 g/dL (3.5-5.0); ALKALINE PHOSPHATASE 167 U/L (38-126); ANION GAP 12.4 MEQ/L (5-15); BLOOD UREA NITROGEN 13 mg/dL (7-17); CHLORIDE 105 mmol/L (98-107); Carbon Dioxide 26 mmol/L (22-30); Creatinine 1 0.54 mg/dL (0.52-1.04); EST GLOMERULAR FILTRATION RATE > 60.0 ML/MIN; Glucose 110 mg/dL (74-106); LIPASE 77 U/L (23-300); Potassium 4.3 mmol/L (3.5-5.1); SGOT/AST 53 U/L (14-36); SGPT/ALT 95 U/L (0-35); SODIUM 139 mmol/L (137-145); Total Protein 7.3 g/dL (6.3-8.2)
[2021-08-23 22:26] LABS: Bacteria RARE /HPF (NEGATIVE)
[2021-08-23 22:27] LABS: Appearance CLEAR (CLEAR)
[2021-08-23 22:28] LABS: Bilirubin NEGATIVE (NEGATIVE); Glucose NEGATIVE (NEGATIVE); Ketones NEGATIVE (NEGATIVE); Nitrite NEGATIVE (NEGATIVE); Ph 5.5 (5-6); Protein,Urine Dip NEGATIVE (Negative); RBC SMALL Ery/ul (0-5); Specific Gravity 1.005 (1.005-1.025); Urobilinogen 0.2 mg/dL (0-1)
[2021-08-23 22:29] LABS: Dipstick done @ ? MAIN LAB
[2021-08-23 22:38] VITALS: O2SAT 97
--- NOTE | 2021-08-23 22:49 | ERPHSYRPT ---
- History of Present Illness Time Seen by Provider: 08/23/21 21:32 Historian: patient Exam Limitations: no limitations Patient Subjective Stated Complaint: Patient states that her "stomach is swelling" for the past 2 days. States it just keeps getting bigger. Denies any pain to her abdomen. Had a BM yesterday that was "normal for me." Denies nausea or vomiting. Triage Nursing Assessment: Patient ambulated back to ED without difficulties. Patient alert and oriented and answering questions appropriately. She is very talkative. Abdomen is large and firm. Hypoactive bowel sounds noted. No pain/tenderness noted with palpation. Physician History: 51 years old female presented in the ER with chief complaint of generalized abdominal distention and discomfort for the last 2 days. Patient reports she thought she was constipated and has taken full box of Ex-Lax with no bowel movement. No fever or chills reported. Timing/Duration: day(s) (2), gradual onset, worse Activities at Onset: rest Quality: dullness Abdominal Pain Onset Location: generalized abdomen Pain Radiation: no radiation Severity of Pain-Max: moderate Severity of Pain-Current: mild Modifying Factors: Improves With: nothing Associated Symptoms: denies symptoms, nausea Previous symptoms: no prior history Allergies/Adverse Reactions: doxycycline Allergy (Verified 08/23/21 21:42) sulfamethoxazole [From Bactrim] Allergy (Verified 08/23/21 21:42) trimethoprim [From Bactrim] Allergy (Verified 08/23/21 21:42) Home Medications: Cetirizine HCl [Zyrtec] 1 tab PO DAILY 08/23/21 [History] Hx Tetanus, Diphtheria Vaccination/Date Given: Yes Hx Influenza Vaccination/Date Given: No Hx Pneumococcal Vaccination/Date Given: No Immunizations Up to Date: Yes Travel Risk - International Travel Have you traveled outside of the country in past 3 weeks: No - Coronavirus Screening Are you exhibiting any of the following symptoms?: No Close contact with a COVID-19 positive Pt in past 14-21 Days: No - Vaccine Status Have you recieved a Covid-19 vaccination: No - Review of Systems Constitutional: No Symptoms Eyes: No Symptoms Ears, Nose, & Throat: No Symptoms Respiratory: No Symptoms Cardiac: No Symptoms Abdominal/Gastrointestinal: Abdominal Pain, Constipation Genitourinary Symptoms: No Symptoms Musculoskeletal: No Symptoms Skin: No Symptoms Neurological: No Symptoms Psychological: Anxiety Endocrine: No Symptoms Hematologic/Lymphatic: No Symptoms Immunological/Allergic: No Symptoms - Past Medical History Pertinent Past Medical History: Yes Neurological History: No Pertinent History ENT History: No Pertinent History Cardiac History: No Pertinent History Respiratory History: No Pertinent History Endocrine Medical History: No Pertinent History Musculoskeletal History: Fractures GI Medical History: No Pertinent History History: No Pertinent History Psycho-Social History: Anxiety Female Reproductive Disorders: No Pertinent History Other Medical History: back pain - Past Surgical History Past Surgical History: Yes Neuro Surgical History: No Pertinent History Cardiac: No Pertinent History Respiratory: No Pertinent History Gastrointestinal: No Pertinent History Genitourinary: No Pertinent History Musculoskeletal: No Pertinent History Female Surgical History: Tubal Ligation - Social History Smoking Status: Current every day smoker How long have you smoked: 32 years Exposure to second hand smoke: Yes Drug Use: none Patient Lives Alone: No - Nursing Vital Signs Nursing Vital Signs: Initial Vital Signs Temperature 98.3 F 08/23/21 21:45 Pulse Rate 86 08/23/21 21:45 Respiratory Rate 19 08/23/21 21:45 Blood Pressure 165/93 08/23/21 21:45 O2 Sat by Pulse Oximetry 98 08/23/21 21:45 Pain Scale Pain Intensity 0 - Physical Exam General Appearance: no apparent distress, alert, anxiety Eye Exam: PERRL/EOMI, eyes nml inspection Ears, Nose, Throat Exam: normal ENT inspection, TMs normal, pharynx normal Neck Exam: normal inspection, non-tender, supple, full range of motion Respiratory Exam: normal breath sounds, lungs clear Cardiovascular Exam: regular rate/rhythm, normal heart sounds Gastrointestinal/Abdomen Exam: soft, normal bowel sounds, tenderness (Mild generalized without guarding or rebound tenderness) Back Exam: normal inspection, normal range of motion Extremity Exam: normal inspection, normal range of motion Neurologic Exam: alert, oriented x 3, cooperative Skin Exam: normal color SpO2 Interpretation: normal SpO2: 97 O2 Delivery: Room Air - Course EKG Interpreted by Me: RATE (84), Sinus Rhythm, NORMAL AXIS, NORMAL INTERVALS, NORMAL QRS Ordered Tests: Active Orders 24 hr Category Date Time Status Clean Catch Urine Specimen STAT Care 08/23/21 22:25 Active IV Insertion STAT Care 08/23/21 22:06 Active NPO (ED) STAT Care 08/23/21 22:06 Active ABDOMEN AND PELVIS W/0 CONTRAS [CT] Stat Exams 08/23/21 22:07 Taken CBC W DIFF Stat Lab 08/23/21 22:00 Completed CMP Stat Lab 08/23/21 22:00 Completed LIPASE Stat Lab 08/23/21 22:00 Completed Urine Triage Profile Stat Lab 08/23/21 22:26 Completed Medication Summary Discontinued Medications Generic Name Dose Route Start Last Admin Trade Name Dottie PRN Reason Stop Dose Admin Sodium Chloride 1,000 mls @ 999 mls/hr 08/23/21 22:06 08/23/21 23:35 Sodium Chloride 0.9% 1000 Ml IV 08/23/21 23:06 Infused .Q1H1M STA Infusion Sodium Chloride Confirm 08/23/21 22:10 Sodium Chloride 0.9% 1000 Ml Administered 08/23/21 22:11 Dose 1,000 mls @ ud .ROUTE .STK-MED ONE Ondansetron HCl 4 mg 08/23/21 22:06 08/23/21 22:16 Ondansetron Hcl 4 Mg/2 Ml Vial IV 08/23/21 22:07 4 mg STAT ONE Administration Ondansetron HCl Confirm 08/23/21 22:10 Ondansetron Hcl 4 Mg/2 Ml Vial Administered 08/23/21 22:11 Dose 4 mg .ROUTE .STK-MED ONE Lab/Rad Data: Laboratory Result Diagrams 08/23/21 22:00 08/23/21 22:00 Laboratory Results 08/23/21 08/23/21 08/23/21 Range/Units 22:26 22:08 22:00 WBC (4.0-10.5) K/mm3 RBC (4.1-5.4) M/mm3 Hgb (12.0-16.0) gm/dl Hct (35-47) % MCV (78-100) fl MCH (26-32) pg MCHC (32-36) g/dl RDW (11.5-14.0) % Plt Count (150-450) K/mm3 MPV (7.5-11.0) fl Gran % (36.0-66.0) % Eos # (Auto) (0-0.5) Absolute Lymphs (auto) (1.0-4.6) Absolute Monos (auto) (0.0-1.3) Lymphocytes % (24.0-44.0) % Monocytes % (0.0-12.0) % Eosinophils % (0.00-5.0) % Basophils % (0.0-0.4) % Absolute Granulocytes (1.4-6.9) Basophils # (0-0.4) Sodium 139 (137-145) mmol/L Potassium 4.3 (3.5-5.1) mmol/L Chloride 105 (98-107) mmol/L Carbon Dioxide 26 (22-30) mmol/L Anion Gap 12.4 (5-15) MEQ/L BUN 13 (7-17) mg/dL Creatinine 0.54 (0.52-1.04) mg/dL Estimated GFR > 60.0 ML/MIN Glucose 110 H (74-106) mg/dL Calcium 10.0 (8.4-10.2) mg/dL Total Bilirubin 0.50 (0.2-1.3) mg/dL AST 53 H (14-36) U/L ALT 95 H (0-35) U/L Alkaline Phosphatase 167 H (38-126) U/L Serum Total Protein 7.3 (6.3-8.2) g/dL Albumin 4.3 (3.5-5.0) g/dL Lipase 77 (23-300) U/L Urinalys Dipstick Clnc MAIN LAB Urine Color YELLOW (YELLOW) Urine Appearance CLEAR (CLEAR) Urine pH 5.5 (5-6) Ur Specific [place] 1.005 (1.005-1.025) POC Urine Protein Conf NEGATIVE (Negative) Urine Ketones NEGATIVE (NEGATIVE) Urine Nitrite NEGATIVE (NEGATIVE) Urine Bilirubin NEGATIVE (NEGATIVE) Urine Urobilinogen 0.2 (0-1) mg/dL Urine Leukocytes NEGATIVE (NEGATIVE) Urine WBC (Auto) NONE (0-5) /HPF Urine RBC (Auto) NONE (0-2) /HPF Urine Bacteria (Auto) RARE (NEGATIVE) /HPF Urine RBC SMALL (0-5) Kayden/ul Urine Glucose NEGATIVE (NEGATIVE) mg/dL Urine Opiates Level NEGATIVE (NEGATIVE) Ur Methadone NEGATIVE (NEGATIVE) Urine Barbiturates NEGATIVE (NEGATIVE) Ur Phencyclidine (PCP) NEGATIVE (NEGATIVE) Urine Amphetamine NEGATIVE (NEGATIVE) U Benzodiazepine Level NEGATIVE (NEGATIVE) Urine Cocaine NEGATIVE (NEGATIVE) Urine Marijuana (THC) NEGATIVE (NEGATIVE) 08/23/21 Range/Units 22:00 WBC 10.3 (4.0-10.5) K/mm3 RBC 4.71 (4.1-5.4) M/mm3 Hgb 14.5 (12.0-16.0) gm/dl Hct 43.6 (35-47) % MCV 92.6 (78-100) fl MCH 30.8 (26-32) pg MCHC 33.3 (32-36) g/dl RDW 14.9 H (11.5-14.0) % Plt Count 433 (150-450) K/mm3 MPV 10.7 (7.5-11.0) fl Gran % 57.2 (36.0-66.0) % Eos # (Auto) 0.04 (0-0.5) Absolute Lymphs (auto) 3.21 (1.0-4.6) Absolute Monos (auto) 1.13 (0.0-1.3) Lymphocytes % 31.3 (24.0-44.0) % Monocytes % 11.0 (0.0-12.0) % Eosinophils % 0.4 (0.00-5.0) % Basophils % 0.1 (0.0-0.4) % Absolute Granulocytes 5.88 (1.4-6.9) Basophils # 0.01 (0-0.4) Sodium (137-145) mmol/L Potassium (3.5-5.1) mmol/L Chloride (98-107) mmol/L Carbon Dioxide (22-30) mmol/L Anion Gap (5-15) MEQ/L BUN (7-17) mg/dL Creatinine (0.52-1.04) mg/dL Estimated GFR ML/MIN Glucose (74-106) mg/dL Calcium (8.4-10.2) mg/dL Total Bilirubin (0.2-1.3) mg/dL AST (14-36) U/L ALT (0-35) U/L Alkaline Phosphatase (38-126) U/L Serum Total Protein (6.3-8.2) g/dL Albumin (3.5-5.0) g/dL Lipase (23-300) U/L Urinalys Dipstick Clnc Urine Color (YELLOW) Urine Appearance (CLEAR) Urine pH (5-6) Ur Specific [place] (1.005-1.025) POC Urine Protein Conf (Negative) Urine Ketones (NEGATIVE) Urine Nitrite (NEGATIVE) Urine Bilirubin (NEGATIVE) Urine Urobilinogen (0-1) mg/dL Urine Leukocytes (NEGATIVE) Urine WBC (Auto) (0-5) /HPF Urine RBC (Auto) (0-2) /HPF Urine Bacteria (Auto) (NEGATIVE) /HPF Urine RBC (0-5) Kayden/ul Urine Glucose (NEGATIVE) mg/dL Urine Opiates Level (NEGATIVE) Ur Methadone (NEGATIVE) Urine Barbiturates (NEGATIVE) Ur Phencyclidine (PCP) (NEGATIVE) Urine Amphetamine (NEGATIVE) U Benzodiazepine Level (NEGATIVE) Urine Cocaine (NEGATIVE) Urine Marijuana (THC) (NEGATIVE) - Progress Progress: improved Progress Note: 08/24/21 00:20 51-year-old is evaluated for abdominal pain. Patient is not in any pain and did not want pain medication. She is given Zofran, feeling better. She has generalized abdominal tenderness. Normal white count, mildly elevated liver enzymes with normal bilirubin. No vomiting. I have obtained CT which showed cholelithiasis but no other acute findings. Patient does note that she has gallstones. Recommended outpatient follow-up with general surgery. Discussed signs symptoms of worsening needing return to ER which she seems understanding. Stable for discharge Counseled pt/family regarding: lab results, diagnosis, need for follow-up, rad results - Departure Departure Disposition: Home Clinical Impression: Generalized abdominal pain, Cholelithiasis Condition: Stable Critical Care Time: No Referrals: BRANDEN WILL [Primary Care Provider] - Follow Up with PCP/3 days VAHE PERSAUD MD [ACTIVE STAFF] - Follow up/PCP as directed (In 3 days for reevaluation) Instructions: Acute Abdomen (Belly Pain), Adult (DC), Gallstones (DC) Additional Instructions: Take Tylenol/Zofran. Follow-up with as needed primary care and general surgery for reevaluation. Return to ER for any worsening abdominal pain, intractable vomiting/fever chills etc. Prescriptions: Ondansetron ODT 4 MG [Zofran Odt 4 mg] 1 ea PO QIDPRN PRN #7 tablet PRN Reason: n/v
[2021-08-23 23:10] LABS: Amphetamine,Urine NEGATIVE (NEGATIVE); Barbiturate,Urine NEGATIVE (NEGATIVE); Benzodiazepine,Urine NEGATIVE (NEGATIVE); Cocaine,Urine NEGATIVE (NEGATIVE); Methadone,Urine NEGATIVE (NEGATIVE); Opiate,Urine NEGATIVE (NEGATIVE); PCP,Urine NEGATIVE (NEGATIVE); THC,Urine NEGATIVE (NEGATIVE)
[2021-08-24 00:16] VITALS: BP 160/70; PULSE 86
--- NOTE | 2021-08-24 08:52 | XRAY ---
Indication: Abdomen pain and bloating 2 days. History renal stones. Multiple contiguous axial images obtained through the abdomen and pelvis without contrast. Comparison: September 04, 2018. Lung bases again demonstrates small right middle lobe calcified granuloma. No infiltrate or effusion. Heart not enlarged. Stable small hiatal hernia. Noncontrasted stomach and bowel loops appear nonobstructed. Appendix not seen. Again mild/moderate diffuse fecal debris throughout, more than before. Gallbladder remains distended again with multiple tiny gallstones. Stable 22.2 cm hepatomegaly, nonobstructing micro-calculus bilaterally and bilateral tubal ligation clips. No free fluid/air. Remaining liver, pancreas, spleen, adrenal glands, kidneys, ureters, bladder, uterus, and aorta appear unremarkable for noncontrast exam. Osseous structures intact again with remote L1 compression fracture, L1-L2 degenerative changes, L4 limbus vertebrae, and remote inferior right liver grimaced fracture. Impression: 1. Again distended gallbladder with gallstones. Sonogram may yield further information if clinically warranted. 2. Worsening diffuse fecal stasis. 3. Again small hiatal hernia, hepatomegaly, nonobstructing bilateral renal micro-calculi, chronic bony findings, and old granulomatous disease. Comment: Preliminary interpretation made by [facility]. No critical discrepancy.
== END 2021-08-24 00:35 | disposition home or self-care (01) ==
LOC: ED 21:27
DX: K80.20 Calculus of gallbladder without cholecystitis without obstruction (principal); R10.84 Generalized abdominal pain; R14.0 Abdominal distension (gaseous); R11.0 Nausea; Z72.0 Tobacco use
CPT/HCPCS: 36000; 36415; 74176; 80053; 80307; 81001; 83690; 85025; 96374; 99284; J2405

== ENCOUNTER 2021-11-28 03:23 | Emergency (ER) | payer OTHER ==
[2021-11-28] MEDS ORDERED: XYLOCAINE 1% HCL 20 ML MDV IJ ONE (03:24)
--- NOTE | 2021-11-28 03:44 | ERPHSYRPT ---
- History of Present Illness Time Seen by Provider: 11/28/21 03:44 Source: patient Exam Limitations: no limitations Patient Subjective Stated Complaint: pt states she has been having sinus pain and feels like the bridge of her nose is numb, states that her neck feels swoll en on both sides. pt states she has an appointment with ear nose and throught on the but feels like she can't wait that long. Triage Nursing Assessment: pt is alert and oriented. states that she does not have any pain but is concerned about the swelling in her neck. Physician History: This a 51-year-old white female has been battling recurrent sinusitis by her primary care physician. She was referred to an lumber bearer on 12/04/2021. However her symptoms of sinus pressure and bilateral neck pain and pressure recurred. The last time she was on any antibiotics or steroids was approximately 1 month ago. At that time she received prednisone and Cipro prescription. This improved her symptoms but then her symptoms recurred. Patient also complained of head pressure and sore throat. She denies chest pain denies shortness of breath. Timing/Duration: week(s) (2) Cough Quality/Degree: no cough Possible Cause: occasional episodes Associated Symptoms: nasal congestion, nasal drainage, sore throat Allergies/Adverse Reactions: doxycycline Allergy (Verified 11/28/21 03:36) sulfamethoxazole [From Bactrim] Allergy (Verified 11/28/21 03:36) trimethoprim [From Bactrim] Allergy (Verified 11/28/21 03:36) Home Medications: Cetirizine HCl [Zyrtec] 1 tab PO DAILY 08/23/21 [History] Hx Tetanus, Diphtheria Vaccination/Date Given: No Hx Influenza Vaccination/Date Given: No Hx Pneumococcal Vaccination/Date Given: No Travel Risk - International Travel Have you traveled outside of the country in past 3 weeks: No - Coronavirus Screening Are you exhibiting any of the following symptoms?: Yes Symptoms: Headaches/Body Aches/Fatigue Close contact with a COVID-19 positive Pt in past 14-21 Days: No - Vaccine Status Have you recieved a Covid-19 vaccination: No - Review of Systems Constitutional: No Symptoms Eyes: No Symptoms Ears, Nose, & Throat: Nose Congestion, Nose Discharge Respiratory: No Symptoms Cardiac: No Symptoms Abdominal/Gastrointestinal: No Symptoms Genitourinary Symptoms: No Symptoms Musculoskeletal: No Symptoms Skin: No Symptoms Neurological: No Symptoms Psychological: No Symptoms Endocrine: No Symptoms Hematologic/Lymphatic: No Symptoms Immunological/Allergic: No Symptoms All Other Systems: Reviewed and Negative - Past Medical History Pertinent Past Medical History: Yes Neurological History: No Pertinent History ENT History: No Pertinent History Cardiac History: No Pertinent History Respiratory History: No Pertinent History Endocrine Medical History: No Pertinent History Musculoskeletal History: Fractures GI Medical History: No Pertinent History History: No Pertinent History Psycho-Social History: Anxiety Female Reproductive Disorders: No Pertinent History Other Medical History: back pain - Past Surgical History Past Surgical History: Yes Neuro Surgical History: No Pertinent History Cardiac: No Pertinent History Respiratory: No Pertinent History Gastrointestinal: No Pertinent History Genitourinary: No Pertinent History Musculoskeletal: No Pertinent History Female Surgical History: Tubal Ligation - Social History Smoking Status: Current every day smoker How long have you smoked: 32 years Exposure to second hand smoke: Yes Drug Use: none Patient Lives Alone: No - Nursing Vital Signs Nursing Vital Signs: Initial Vital Signs Temperature 97.8 F 11/28/21 03:26 Pulse Rate 79 11/28/21 03:26 Respiratory Rate 18 11/28/21 03:26 Blood Pressure 158/91 11/28/21 03:26 O2 Sat by Pulse Oximetry 99 11/28/21 03:26 Pain Scale Pain Intensity 0 - Physical Exam General Appearance: no apparent distress, alert, anxiety, obese Eye Exam: PERRL/EOMI, eyes nml inspection Ears, Nose, Throat Exam: TMs normal, moist mucous membranes, pharyngeal erythema Neck Exam: normal inspection, supple, full range of motion, other (Bilateral neck achiness. No paraspinous muscle pain or vertebral pain with movement) Respiratory Exam: normal breath sounds, lungs clear, airway intact, No chest tenderness, No respiratory distress Cardiovascular Exam: regular rate/rhythm, normal heart sounds, normal peripheral pulses Gastrointestinal/Abdomen Exam: soft, normal bowel sounds, No tenderness Pelvic Exam: not done Rectal Exam: not done Back Exam: normal inspection, normal range of motion, No CVA tenderness, No vertebral tenderness Extremity Exam: normal inspection, normal range of motion, pelvis stable Neurologic Exam: alert, oriented x 3, cooperative, navigation teacher II-XII nml as tested, normal mood/affect, nml station & gait, sensation nml Skin Exam: normal color, warm, dry Lymphatic Exam: No adenopathy SpO2 Interpretation: normal SpO2: 99 O2 Delivery: Room Air Ordered Tests: Active Orders 24 hr Category Date Time Status IV Insertion STAT Care 11/28/21 03:45 Active Pulse Oximetry (ED) STAT Care 11/28/21 03:45 Active BLOOD CULTURE Stat Lab 11/28/21 03:45 Ordered CBC W DIFF Stat Lab 11/28/21 03:45 Ordered CMP Stat Lab 11/28/21 03:45 Ordered Lactic Acid Stat Lab 11/28/21 03:45 Ordered [place] Screen Stat Lab 11/28/21 Ordered Medication Summary Generic Name Dose Route Start Last Admin Trade Name Freq PRN Reason Stop Dose Admin Sodium Chloride 1,000 mls @ 999 mls/hr 11/28/21 03:45 11/28/21 04:00 Sodium Chloride 0.9% 1000 Ml IV 11/28/21 04:45 Not Given .Q1H1M STA Ceftriaxone Sodium/Dextrose 1 g in 50 mls @ 100 mls/hr 11/28/21 04:04 Rocephin 1 Gm-D5w 50 Ml Bag IV 11/28/21 04:33 STAT STA Discontinued Medications Generic Name Dose Route Start Last Admin Trade Name Freq PRN Reason Stop Dose Admin Methylprednisolone Sodium 0 mg 11/28/21 04:04 Succinate 125 mg/ Sterile IV 11/28/21 04:05 Water 2 ml STAT ONE - Progress Progress: unchanged Air Movement: good Progress Note: 11/28/21 04:11 This patient is refusing CT of the head face and neck. She does not want any scans or x-rays performed. Patient also does not want any blood drawn or labs obtained. She does not want any swabs performed. She has been battling recurrent sinusitis and feels this is what it is. We will have her sign a refusal of care form. I will go ahead and provide the patient with Rocephin and Solu-Medrol intramuscularly and then write a prescription for Z-Santo and prednisone as an outpatient. Antibiotics given: Yes, No Counseled pt/family regarding: diagnosis, need for follow-up - Departure Departure Disposition: Home Clinical Impression: Sinus pressure Condition: Stable Critical Care Time: No Referrals: BRANDEN WILL [Primary Care Provider] - Follow up/PCP as directed Additional Instructions: Follow-up with lumber bearer on 12/04/2021. Take your antibiotics and steroids as prescribed. Prescriptions: Prednisone 10 mg [Deltasone 10 mg] 10 mg PO TID #12 tablet Azithromycin 250 mg [Zithromax 250 MG TABLET] 250 mg PO ZPACK #6 tablet
[2021-11-28] MEDS ORDERED: Sodium Chloride 0.9% 1000 ML 1,000 ML IV STA (03:45)
[2021-11-28] MEDS ORDERED: solu-MEDROL 125 MG, Sterile H2O 10 ml 2 ML IV ONE ×2 (04:04)
[2021-11-28] MEDS ORDERED: ROCEPHIN 1 Gm-D5w 50 ml Bag** 1 G/50 ML IVPB IV STA (04:04)
[2021-11-28] MEDS ORDERED: Rocephin 1000 MG INJ IM ONE (04:50)
[2021-11-28] MEDS ORDERED: solu-MEDROL 125 MG, Sterile H2O 10 ml 2 ML IM ONE ×2 (04:50)
[2021-11-28] MEDS ORDERED: Sterile H2O 10 ml IJ ONE (04:57)
[2021-11-28] MEDS ORDERED: solu-MEDROL ONE (04:57)
[2021-11-28] MEDS ORDERED: Rocephin 1000 MG INJ ONE (04:58)
[2021-11-28 05:08] VITALS: BP 148/87; PULSE 89; O2SAT 98
== END 2021-11-28 05:10 | disposition home or self-care (01) ==
LOC: ED 03:23
DX: R51.9 Headache, unspecified (principal); R09.81 Nasal congestion; J02.9 Acute pharyngitis, unspecified; M54.2 Cervicalgia; Z72.0 Tobacco use; Z79.52 Long term (current) use of systemic steroids; Z28.310 Unvaccinated for COVID-19
CPT/HCPCS: 96372; 99283; J0696; J2930

== ENCOUNTER 2021-12-01 17:09 | Emergency (ER) | payer OTHER ==
[2021-12-01 17:22] VITALS: BP 128/91; PULSE 103; O2SAT 96
[2021-12-01] MEDS ORDERED: TORAdol 30 mg Injection IM ONE (17:31)
[2021-12-01] MEDS ORDERED: solu-MEDROL 125 MG, Sterile H2O 10 ml 2 ML IM ONE ×2 (17:32)
[2021-12-01] MEDS ORDERED: TORAdol 30 mg Injection ONE (17:35)
[2021-12-01] MEDS ORDERED: Sterile H2O 10 ml IJ ONE (17:35)
[2021-12-01] MEDS ORDERED: solu-MEDROL ONE (17:35)
--- NOTE | 2021-12-01 17:39 | ERPHSYRPT ---
- History of Present Illness Time Seen by Provider: 12/01/21 17:33 Source: patient Exam Limitations: no limitations Patient Subjective Stated Complaint: Pt states "I was here a couple of days ago and I am no better. I have been fighting a sinus infection and nothing is hel ping." Triage Nursing Assessment: Pt presented alert and oriented X 3, skin pwd Pt ambulates with an upright steady gait, able to speak in clear full sentences pt in no apparent respiratory distress. pt resting comfortably on the bed. Physician History: Pt states "I was here a couple of days ago and I am no better. I have been fighting a sinus infection and nothing is helping." Patient is 51-year-old female came to the emergency room with complaining of headache on the top of her head. Patient was in the emergency room just 2 days ago and before that she was here 2 weeks ago with the same complaint although work-up has been negative recently when she was here 2 days ago CAT scan was ordered but then she refused to do that because she she says that she already has an appointment with research support specialist so she does not want to repeat the same test because she thinks that they will also will do those test so she was given some antibiotic and Medrol Dosepak and was discharged home. Since he was on the last dose of Medrol Dosepak and Z-Santo but she still has some headache and headache is more on her top of her head and goes back to the neck. She denies any other symptoms including fever chills nausea vomiting confusion chest congestion chest pain urinary trouble back pain or neck pain. Timing/Duration: days (12-14 days) Severity: mild Prearrival Treatment: prescription meds Associated Symptoms: denies symptoms Allergies/Adverse Reactions: doxycycline Allergy (Verified 11/28/21 03:36) sulfamethoxazole [From Bactrim] Allergy (Verified 11/28/21 03:36) trimethoprim [From Bactrim] Allergy (Verified 11/28/21 03:36) Home Medications: Cetirizine HCl [Zyrtec] 1 tab PO DAILY 08/23/21 [History] Hx Tetanus, Diphtheria Vaccination/Date Given: No Hx Influenza Vaccination/Date Given: No Hx Pneumococcal Vaccination/Date Given: No Immunizations Up to Date: Yes Travel Risk - International Travel Have you traveled outside of the country in past 3 weeks: No - Coronavirus Screening Are you exhibiting any of the following symptoms?: No Close contact with a COVID-19 positive Pt in past 14-21 Days: No - Vaccine Status Have you recieved a Covid-19 vaccination: No - Review of Systems Constitutional: No Fever, No Chills Eyes: No Symptoms Ears, Nose, & Throat: No Symptoms Respiratory: No Cough, No Dyspnea Cardiac: No Chest Pain, No Edema, No Syncope Abdominal/Gastrointestinal: No Abdominal Pain, No Nausea, No Vomiting, No Diarrhea Genitourinary Symptoms: No Dysuria Musculoskeletal: No Back Pain, No Neck Pain Skin: No Rash Neurological: Headache, No Dizziness, No Focal Weakness, No Sensory Changes Psychological: No Symptoms Endocrine: No Symptoms All Other Systems: Reviewed and Negative - Past Medical History Pertinent Past Medical History: Yes Neurological History: No Pertinent History ENT History: No Pertinent History Cardiac History: No Pertinent History Respiratory History: No Pertinent History Endocrine Medical History: No Pertinent History Musculoskeletal History: Fractures GI Medical History: No Pertinent History History: No Pertinent History Psycho-Social History: Anxiety Female Reproductive Disorders: No Pertinent History Other Medical History: back pain - Past Surgical History Past Surgical History: Yes Neuro Surgical History: No Pertinent History Cardiac: No Pertinent History Respiratory: No Pertinent History Gastrointestinal: No Pertinent History Genitourinary: No Pertinent History Musculoskeletal: No Pertinent History Female Surgical History: Tubal Ligation - Social History Smoking Status: Current every day smoker How long have you smoked: 32 years Exposure to second hand smoke: Yes Drug Use: none Patient Lives Alone: No - Nursing Vital Signs Nursing Vital Signs: Initial Vital Signs Temperature 97.7 F 12/01/21 17:15 Pulse Rate 103 H 12/01/21 17:15 Respiratory Rate 20 12/01/21 17:15 Blood Pressure 128/91 12/01/21 17:15 O2 Sat by Pulse Oximetry 96 12/01/21 17:15 Pain Scale Pain Intensity 8 - Physical Exam General Appearance: no apparent distress, alert Eye Exam: bilateral eye: PERRL, EOMI Nasal Exam: normal inspection Throat Exam: pharynx normal, moist mucus membranes, No tonsillar exudate Neck Exam: supple Cardiovascular/Respiratory Exam: normal breath sounds, regular rate/rhythm Abdominal Exam: non-tender, soft Neurologic Exam: alert, oriented x 3, sensation nml, No motor deficits Skin Exam: normal color, warm, dry SpO2 Interpretation: normal SpO2: 96 O2 Delivery: Room Air - Course Nursing assessment & vital signs reviewed: Yes Ordered Tests: Medication Summary Generic Name Dose Route Start Last Admin Trade Name Dottie PRN Reason Stop Dose Admin Methylprednisolone Sodium 0 mg 12/01/21 17:32 Succinate 125 mg/ Sterile IM 12/01/21 17:33 Water 2 ml STAT ONE Ketorolac Tromethamine 60 mg 12/01/21 17:31 Ketorolac Tromethamine 30 Mg/Ml Inj IM 12/01/21 17:32 STAT ONE - Progress Progress: improved, pain not gone completely Counseled pt/family regarding: diagnosis, need for follow-up - Departure Departure Disposition: Home Clinical Impression: Sinus headache Condition: Stable Critical Care Time: No Referrals: BRANDEN WILL [Primary Care Provider] - Follow up/PCP as directed Instructions: Headache, Adult (DC), Sinusitis in Adults Additional Instructions: Discharge/Care Plan LYDIA RICHEY Valentin was seen on 12/01/21 in the Emergency Room. The patient was counseled regarding Diagnosis,Lab results, Imaging studies, need for follow up and when to return to the Emergency Room. Prescriptions given: Discharge Note I have spoken with the patient and/or caregivers. I have explained the patient's condition, diagnosis and treatment plan based on the information available to me at this time. I have answered the patient's and/or caregiver's questions and addressed any concerns. The patient and/or caregivers have as good understanding of the patient's diagnosis, condition and treatment plan as can be expected at this point. The vital signs have been stable. The patient's condition is stable and appropriate for discharge from the emergency department. The patient will pursue further outpatient evaluation with the primary care physician or other designated or consulting physician as outlined in the discharge instructions. The patient and/or caregivers are agreeable to this plan of care and follow-up instructions have been explained in detail. The patient and/or caregivers have received these instruction. The patient/and or caregivers are aware that any significant change in condition or worsening of symptoms should prompt an immediate return to this or the closest emergency department or call 911. LYDIA RICHEY was seen on 12/01/21 n the Emergency Room. At that time you were treated for an emergent condition, during your visit Laboratory, Radiology and/or other procedures may have been ordered. It is very important that you follow-up with your Primary Care Physician BRANDEN WILL within the next 24-48 hours to review your Emergency Room visit and the final results of testing that was ordered. Some test results such as Urine Cultures, Blood Cultures, and other cultures if ordered will not be finalized for 24-48 hours. If you do not have a Primary Care Provider please call the medical records department at [phone] ext [phone] to obtain a copy of your results or you may sign into our patient portal to obtain these results by visiting us @ [email or web address] and completing the following steps: 1. Click on the Patient Portal link 2. Click the Patient Self Enrollment Link to complete the enrollment form and entering your 3. Once the enrollment form is completed you will receive an email with a temporary ID and password at the email address you provided. 4. Next choose a user name and password. Your user name must be at least 4 characters long and your password must be at least 4 characters long. 5. Choose a security question from the list and provide your answer to the question. If you already have signed into the Health Portal you may access your Health Care Information 16/12 by the following steps: 1. Login to our website @ [email or web address] 2. Enter your original user name and password. FAQS The [facility] Health Portal is an online tool that contains your Lab Results, Radiology Reports, Visit History, Discharge Instructions and Health Summary Lab and Radiology Results will not be available for 72 hours on the portal. The Portal is a secure site, passwords are encryted and URLs are re-written so they cannot be copied and pasted. You and authorized family members are the only ones who can access your Portal. Also there is a timeout feature that protects your information if you leave the Portal page open. If you have technical difficulty please use the Contact Us link on the page this will allow you to submit any questions you have regarding the Portal or you may contact the Medical Record Department at [phone]. Prescriptions: Indomethacin 25 mg [Indocin 25 MG] 25 mg PO TID #10 cap
== END 2021-12-01 18:15 | disposition home or self-care (01) ==
LOC: ED 17:09
DX: G44.89 Other headache syndrome (principal); Z72.0 Tobacco use; Z28.310 Unvaccinated for COVID-19
CPT/HCPCS: 96372; 99283; J1885; J2930

== ENCOUNTER 2021-12-02 15:40 | Emergency (ER) | payer OTHER ==
[2021-12-02 15:52] VITALS: BP 155/85; O2SAT 98
--- NOTE | 2021-12-02 16:11 | ERPHSYRPT ---
- History of Present Illness Time Seen by Provider: 12/02/21 16:09 Source: patient Exam Limitations: no limitations Patient Subjective Stated Complaint: PT HERE FOR REDNESS AND SWELLING TO SIDES OF NECK YESTERDAY.IS ALBE TO EAT A DRINK WELL, SHE WAS EXPOSED TO COVID. PT WAS SEEN HERE IN ER FOR URI Triage Nursing Assessment: PT ALERT, WALKED IN . RESP EASY, FACE MASK IN PLACE, NO RASH OR HIVES NOTED, NO DROOLING, SKIN W/D/P Physician History: Patient is 51-year-old female came to the emergency room with complaining of sore throat swelling on the neck started today morning. Patient has been exposed to coronavirus infection. Patient has not been vaccinated. Patient denies any other symptoms. Timing/Duration: today Cough Quality/Degree: no cough Possible Cause: no prior episodes Associated Symptoms: sore throat Allergies/Adverse Reactions: doxycycline Allergy (Verified 12/02/21 15:53) sulfamethoxazole [From Bactrim] Allergy (Verified 12/02/21 15:53) trimethoprim [From Bactrim] Allergy (Verified 12/02/21 15:53) Home Medications: Cetirizine HCl [Zyrtec] 1 tab PO DAILY 08/23/21 [History] Hx Tetanus, Diphtheria Vaccination/Date Given: No Hx Influenza Vaccination/Date Given: No Hx Pneumococcal Vaccination/Date Given: No Immunizations Up to Date: Yes Travel Risk - International Travel Have you traveled outside of the country in past 3 weeks: No - Coronavirus Screening Are you exhibiting any of the following symptoms?: No Close contact with a COVID-19 positive Pt in past 14-21 Days: Yes - Vaccine Status Have you recieved a Covid-19 vaccination: No - Review of Systems Constitutional: No Fever, No Chills Eyes: No Symptoms Ears, Nose, & Throat: Throat Pain Respiratory: No Cough, No Dyspnea Cardiac: No Chest Pain, No Edema, No Syncope Abdominal/Gastrointestinal: No Abdominal Pain, No Nausea, No Vomiting, No Diarrhea Genitourinary Symptoms: No Dysuria Musculoskeletal: No Back Pain, No Neck Pain Skin: No Rash Neurological: No Dizziness, No Focal Weakness, No Sensory Changes Psychological: No Symptoms Endocrine: No Symptoms All Other Systems: Reviewed and Negative - Past Medical History Pertinent Past Medical History: Yes Neurological History: No Pertinent History ENT History: No Pertinent History Cardiac History: No Pertinent History Respiratory History: No Pertinent History Endocrine Medical History: No Pertinent History Musculoskeletal History: Fractures GI Medical History: No Pertinent History History: No Pertinent History Psycho-Social History: Anxiety Female Reproductive Disorders: No Pertinent History Other Medical History: back pain - Past Surgical History Past Surgical History: Yes Neuro Surgical History: No Pertinent History Cardiac: No Pertinent History Respiratory: No Pertinent History Gastrointestinal: No Pertinent History Genitourinary: No Pertinent History Musculoskeletal: No Pertinent History Female Surgical History: Tubal Ligation - Social History Smoking Status: Current every day smoker How long have you smoked: 32 years Exposure to second hand smoke: Yes Drug Use: none Patient Lives Alone: No - Nursing Vital Signs Nursing Vital Signs: Initial Vital Signs Temperature 98.4 F 12/02/21 15:47 Pulse Rate 95 H 12/02/21 15:47 Respiratory Rate 18 12/02/21 15:47 Blood Pressure 155/85 12/02/21 15:47 O2 Sat by Pulse Oximetry 98 12/02/21 15:47 Pain Scale Pain Intensity 7 - Physical Exam General Appearance: no apparent distress, alert Eye Exam: PERRL/EOMI, eyes nml inspection Ears, Nose, Throat Exam: normal ENT inspection, TMs normal, pharynx normal, moist mucous membranes, pharyngeal erythema Neck Exam: normal inspection, non-tender, supple, full range of motion Respiratory Exam: normal breath sounds, lungs clear, No respiratory distress Cardiovascular Exam: regular rate/rhythm, normal heart sounds Gastrointestinal/Abdomen Exam: soft, No tenderness Back Exam: normal inspection, No CVA tenderness, No vertebral tenderness Extremity Exam: normal inspection, normal range of motion Neurologic Exam: alert, oriented x 3, cooperative, normal mood/affect, sensation nml, No motor deficits Skin Exam: normal color, warm, dry, No rash Lymphatic Exam: No adenopathy SpO2: 98 - Course Nursing assessment & vital signs reviewed: Yes Ordered Tests: Active Orders 24 hr Category Date Time Status CBC W DIFF Stat Lab 12/02/21 16:15 Completed CMP Stat Lab 12/02/21 16:15 Completed Medication Summary Discontinued Medications Generic Name Dose Route Start Last Admin Trade Name Freq PRN Reason Stop Dose Admin Ceftriaxone Sodium 1,000 mg 12/02/21 16:39 12/02/21 17:08 Ceftriaxone Sodium 1000 Mg Inj Vial IM 12/02/21 16:40 1,000 mg STAT ONE Administration Ceftriaxone Sodium Confirm 12/02/21 17:03 Ceftriaxone Sodium 1000 Mg Inj Vial Administered 12/02/21 17:04 Dose 1,000 mg .ROUTE .[facility] ONE Lidocaine HCl Confirm 12/02/21 17:03 Lidocaine Hcl 1% 20 Ml Mdv 20 Ml Ml Administered 12/02/21 17:04 Dose 3 ml .ROUTE .[facility] ONE Lab/Rad Data: Laboratory Result Diagrams 12/02/21 16:15 12/02/21 16:15 Laboratory Results 12/02/21 12/02/21 12/02/21 Range/Units 16:15 16:15 16:15 WBC 20.9 H (4.0-10.5) x10^3/uL RBC 4.50 (4.1-5.4) x10^6/uL Hgb 13.9 (12.0-16.0) g/dL Hct 41.0 (35-47) % MCV 91.1 (78-100) fL MCH 30.9 (26-32) pg MCHC 33.9 (32-36) g/dL RDW 13.2 (11.5-14.0) % Plt Count 460 H (150-450) x10^3/uL MPV 10.7 (7.5-11.0) fL Gran % 76.1 H (36.0-66.0) % Immature Gran % (Auto) 1.4 H (0.00-0.4) % Nucleat RBC Rel Count 0.0 (0.00-0.1) % Eos # (Auto) 0.01 (0-0.5) x10^3/uL Immature Gran # (Auto) 0.29 H (0.00-0.03) x10^3u/L Absolute Lymphs (auto) 2.56 (1.0-4.6) x10^3/uL Absolute Monos (auto) 2.12 H (0.0-1.3) x10^3/uL Absolute Nucleated RBC 0.00 (0.00-0.01) x10^3u/L Lymphocytes % 12.2 L (24.0-44.0) % Monocytes % 10.1 (0.0-12.0) % Eosinophils % 0.0 (0.00-5.0) % Basophils % 0.2 (0.0-0.4) % Absolute Granulocytes 15.92 H (1.4-6.9) x10^3/uL Basophils # 0.04 (0-0.4) x10^3/uL Sodium 138 (137-145) mmol/L Potassium 4.2 (3.5-5.1) mmol/L Chloride 106 (98-107) mmol/L Carbon Dioxide 25 (22-30) mmol/L Anion Gap 11.2 (5-15) MEQ/L BUN 19 H (7-17) mg/dL Creatinine 0.61 (0.52-1.04) mg/dL Estimated GFR > 60.0 ML/MIN Glucose 90 (74-106) mg/dL Calcium 9.8 (8.4-10.2) mg/dL Total Bilirubin 0.40 (0.2-1.3) mg/dL AST 55 H (14-36) U/L ALT 69 H (0-35) U/L Alkaline Phosphatase 110 (38-126) U/L Serum Total Protein 7.2 (6.3-8.2) g/dL Albumin 4.0 (3.5-5.0) g/dL Influenza Type A Ag NEGATIVE (NEGATIVE) Influenza Type B Ag NEGATIVE (NEGATIVE) RSV (PCR) NEGATIVE (Negative) SARS-CoV-2 (PCR) NEGATIVE (NEGATIVE) Group A Strep Antibody NOT DETECTED (NEGATIVE) - Progress Progress: improved Air Movement: good Blood Culture(s) Obtained: No Antibiotics given: Yes Counseled pt/family regarding: lab results, diagnosis, need for follow-up - Departure Departure Disposition: Home Clinical Impression: Pharyngitis Qualifiers: Pharyngitis/tonsillitis etiology: unspecified etiology Qualified Code(s): J02.9 - Acute pharyngitis, unspecified Leukocytosis Qualifiers: Leukocytosis type: other Qualified Code(s): D72.828 - Other elevated white blood cell count Condition: Stable Critical Care Time: No Referrals: BRANDEN WILL [Primary Care Provider] - Follow up/PCP as directed Prescriptions: Azithromycin [Azithromycin 250 mg Pack] 250 mg PO UD #6 tablet
[2021-12-02 16:32] LABS: Absolute Neutrophil Ct (ANC) 15.92 x10^3/uL (1.4-6.9); Basophil (Absolute #) 0.04 x10^3/uL (0-0.4); Eosinophil (Absolute #) 0.01 x10^3/uL (0-0.5); Hemoglobin 13.9 g/dL (12.0-16.0); Lymphocyte (Absolute #) 2.56 x10^3/uL (1.0-4.6); Lymphocytes % 12.2 % (24.0-44.0); Mean Cell Volume 91.1 fL (78-100); Mean Corpuscular Hemoglobin 30.9 pg (26-32); Mean Corpuscular Hgb Concent. 33.9 g/dL (32-36); Mean Platelet Volume 10.7 fL (7.5-11.0); Monocyte (Absolute #) 2.12 x10^3/uL (0.0-1.3); Monocytes % 10.1 % (0.0-12.0); Neutrophil % 76.1 % (36.0-66.0); Platelet Count 460 x10^3/uL (150-450); Red Cell Distribution Width 13.2 % (11.5-14.0); White Blood Count 20.9 x10^3/uL (4.0-10.5)
[2021-12-02 16:36] LABS: ALKALINE PHOSPHATASE 110 U/L (38-126); ANION GAP 11.2 MEQ/L (5-15); BLOOD UREA NITROGEN 19 mg/dL (7-17); CHLORIDE 106 mmol/L (98-107); Calcium 9.8 mg/dL (8.4-10.2); Carbon Dioxide 25 mmol/L (22-30); Creatinine 1 0.61 mg/dL (0.52-1.04); EST GLOMERULAR FILTRATION RATE > 60.0 ML/MIN; Glucose 90 mg/dL (74-106); Potassium 4.2 mmol/L (3.5-5.1); SGOT/AST 55 U/L (14-36); SGPT/ALT 69 U/L (0-35); SODIUM 138 mmol/L (137-145); Total Protein 7.2 g/dL (6.3-8.2)
[2021-12-02] MEDS ORDERED: Rocephin 1000 MG INJ IM ONE (16:39)
[2021-12-02 16:52] LABS: Group A Strep NOT DETECTED (NEGATIVE)
[2021-12-02 17:03] LABS: INFLUENZA A NEGATIVE (NEGATIVE); INFLUENZA B NEGATIVE (NEGATIVE); RESPIRATORY SYNCTIAL VIRUS NEGATIVE (Negative); SARS-CoV-2 Xpert Express NEGATIVE (NEGATIVE)
[2021-12-02] MEDS ORDERED: Rocephin 1000 MG INJ ONE (17:03)
[2021-12-02] MEDS ORDERED: XYLOCAINE 1% HCL 20 ML MDV ONE (17:03)
[2021-12-02 18:00] VITALS: PULSE 78
== END 2021-12-02 18:00 | disposition home or self-care (01) ==
LOC: ED 15:40
DX: J02.9 Acute pharyngitis, unspecified (principal); D72.828 Other elevated white blood cell count; Z20.822 Contact with and (suspected) exposure to COVID-19; Z28.310 Unvaccinated for COVID-19; Z72.0 Tobacco use
CPT/HCPCS: 0241U; 36415; 80053; 85025; 87651; 96372; 99283; J0696

== ENCOUNTER 2021-12-09 09:57 | Emergency (ER) | payer OTHER ==
[2021-12-09] MEDS ORDERED: Zofran 4 MG/2 ML VIAL IV ONE (10:25)
[2021-12-09] MEDS ORDERED: Sodium Chloride 0.9% 1000 ML 1,000 ML IV STA (10:25)
[2021-12-09] MEDS ORDERED: TORAdol 30 mg Injection IV ONE (10:25)
[2021-12-09 10:41] LABS: Absolute Neutrophil Ct (ANC) 6.99 x10^3/uL (1.4-6.9); Basophil (Absolute #) 0.07 x10^3/uL (0-0.4); Eosinophil % 4.7 % (0.00-5.0); Eosinophil (Absolute #) 0.54 x10^3/uL (0-0.5); Hematocrit 38.2 % (35-47); Hemoglobin 12.7 g/dL (12.0-16.0); Lymphocyte (Absolute #) 2.25 x10^3/uL (1.0-4.6); Lymphocytes % 19.4 % (24.0-44.0); Mean Cell Volume 92.3 fL (78-100); Mean Corpuscular Hemoglobin 30.7 pg (26-32); Mean Corpuscular Hgb Concent. 33.2 g/dL (32-36); Monocyte (Absolute #) 1.61 x10^3/uL (0.0-1.3); Monocytes % 13.9 % (0.0-12.0); Neutrophil % 60.3 % (36.0-66.0); Platelet Count 286 x10^3/uL (150-450); Red Blood Count 4.14 x10^6/uL (4.1-5.4); Red Cell Distribution Width 14.6 % (11.5-14.0); White Blood Count 11.6 x10^3/uL (4.0-10.5)
[2021-12-09] MEDS ORDERED: TORAdol 30 mg Injection ONE (10:49)
[2021-12-09] MEDS ORDERED: Sodium Chloride 0.9% 1000 ML 1,000 ML ONE (10:49)
[2021-12-09] MEDS ORDERED: Zofran 4 MG/2 ML VIAL ONE (10:49)
[2021-12-09 10:52] LABS: ALBUMIN 3.8 g/dL (3.5-5.0); ALKALINE PHOSPHATASE 269 U/L (38-126); ANION GAP 11.5 MEQ/L (5-15); BLOOD UREA NITROGEN 17 mg/dL (7-17); CHLORIDE 106 mmol/L (98-107); Calcium 9.6 mg/dL (8.4-10.2); Carbon Dioxide 26 mmol/L (22-30); Creatinine 1 0.59 mg/dL (0.52-1.04); EST GLOMERULAR FILTRATION RATE > 60.0 ML/MIN; Glucose 104 mg/dL (74-106); LIPASE 81 U/L (23-300); Potassium 4.3 mmol/L (3.5-5.1); SGOT/AST 88 U/L (14-36); SGPT/ALT 237 U/L (0-35); SODIUM 139 mmol/L (137-145)
[2021-12-09 11:18] VITALS: O2SAT 98
[2021-12-09 11:20] LABS: Appearance CLEAR (CLEAR); Bilirubin NEGATIVE (NEGATIVE); Dipstick done @ ? MAIN LAB; Glucose NEGATIVE (NEGATIVE); Ketones NEGATIVE (NEGATIVE); Nitrite NEGATIVE (NEGATIVE); Protein,Urine Dip NEGATIVE (Negative); RBC NEGATIVE Ery/ul (0-5); Urobilinogen 0.2 mg/dL (0-1)
[2021-12-09 11:22] LABS: Urine Cultured Indicated? NO
--- NOTE | 2021-12-09 12:22 | ERPHSYRPT ---
- History of Present Illness Time Seen by Provider: 12/09/21 09:59 Historian: patient Exam Limitations: no limitations Patient Subjective Stated Complaint: Pt states "I have been having abdominal pain for the past couple of days and I am sick. I drank mineral oil last night and went to the bathroom today but my belly still hurts. I was also on azithromycin and it is not helping." Triage Nursing Assessment: PT presnted alert and oriented X 3, skin pwd. Pt ambulates with an upright steady gait, able to speak in clear full sentences pt in no apaprent respiratory distress. Pt resting comfortably on the bed. Physician History: 51 years old female presented in the ER with chief complaint of generalized abdominal pain and distention. Patient reports she was having abdominal cramping, thought she was constipated and drank a whole bottle of mineral oil and had multiple episodes of loose stool all night long. This morning she woke up and noticed that her belly was distended and was still cramping all over. No diarrhea for the last 2 to 3 hours now. Has mild nausea. Patient is very anxious and is concerned that it could be a bacterial infection as she has recently taken Zithromax for her throat infection. Denies any fever or chills. Denies any urinary complaints. Timing/Duration: yesterday, gradual onset, worse Quality: cramping Abdominal Pain Onset Location: generalized abdomen Pain Radiation: no radiation Severity of Pain-Max: moderate Severity of Pain-Current: moderate Modifying Factors: Improves With: nothing Associated Symptoms: diarrhea, nausea Previous symptoms: no prior history Allergies/Adverse Reactions: doxycycline Allergy (Verified 12/02/21 15:53) sulfamethoxazole [From Bactrim] Allergy (Verified 12/02/21 15:53) trimethoprim [From Bactrim] Allergy (Verified 12/02/21 15:53) Home Medications: Cetirizine HCl [Zyrtec] 1 tab PO DAILY 08/23/21 [History] Hx Tetanus, Diphtheria Vaccination/Date Given: No Hx Influenza Vaccination/Date Given: No Hx Pneumococcal Vaccination/Date Given: No Travel Risk - International Travel Have you traveled outside of the country in past 3 weeks: No - Coronavirus Screening Are you exhibiting any of the following symptoms?: No Close contact with a COVID-19 positive Pt in past 14-21 Days: No - Vaccine Status Have you recieved a Covid-19 vaccination: No - Review of Systems Constitutional: No Symptoms Eyes: No Symptoms Ears, Nose, & Throat: No Symptoms Respiratory: No Symptoms Cardiac: No Symptoms Abdominal/Gastrointestinal: Abdominal Pain, Nausea, Diarrhea Genitourinary Symptoms: No Symptoms Musculoskeletal: No Symptoms Skin: No Symptoms Neurological: No Symptoms Psychological: Anxiety Endocrine: No Symptoms Hematologic/Lymphatic: No Symptoms - Past Medical History Pertinent Past Medical History: Yes Neurological History: No Pertinent History ENT History: No Pertinent History Cardiac History: No Pertinent History Respiratory History: No Pertinent History Endocrine Medical History: No Pertinent History Musculoskeletal History: Fractures GI Medical History: No Pertinent History History: No Pertinent History Psycho-Social History: Anxiety Female Reproductive Disorders: No Pertinent History Other Medical History: back pain - Past Surgical History Past Surgical History: Yes Neuro Surgical History: No Pertinent History Cardiac: No Pertinent History Respiratory: No Pertinent History Gastrointestinal: No Pertinent History Genitourinary: No Pertinent History Musculoskeletal: No Pertinent History Female Surgical History: Tubal Ligation - Social History Smoking Status: Current every day smoker How long have you smoked: 32 years Exposure to second hand smoke: Yes Drug Use: none Patient Lives Alone: No - Nursing Vital Signs Nursing Vital Signs: Initial Vital Signs Temperature 98.0 F 12/09/21 09:58 Pulse Rate 98 H 12/09/21 09:58 Respiratory Rate 18 12/09/21 09:58 Blood Pressure 148/102 12/09/21 09:58 O2 Sat by Pulse Oximetry 100 12/09/21 09:58 Pain Scale Pain Intensity 4 - Physical Exam General Appearance: no apparent distress, alert, anxiety Eye Exam: PERRL/EOMI, eyes nml inspection Ears, Nose, Throat Exam: normal ENT inspection, pharynx normal Neck Exam: normal inspection, supple, full range of motion Respiratory Exam: normal breath sounds, lungs clear Cardiovascular Exam: regular rate/rhythm, normal heart sounds Gastrointestinal/Abdomen Exam: soft, normal bowel sounds, tenderness (Generalized without guarding or rebound), No guarding, No rebound Back Exam: normal inspection, No CVA tenderness Extremity Exam: normal inspection, normal range of motion Neurologic Exam: alert, oriented x 3, cooperative Skin Exam: normal color SpO2 Interpretation: normal SpO2: 98 O2 Delivery: Room Air Ordered Tests: Active Orders 24 hr Category Date Time Status EKG-ER Only STAT Care 12/09/21 10:25 Active IV Insertion STAT Care 12/09/21 10:25 Active NPO (ED) STAT Care 12/09/21 10:25 Active ABDOMEN AND PELVIS W/0 CONTRAS [CT] Stat Exams 12/09/21 10:23 Taken CBC W DIFF Stat Lab 12/09/21 10:35 Completed CMP Stat Lab 12/09/21 10:35 Completed LIPASE Stat Lab 12/09/21 10:35 Completed TROPONIN Q3H Lab 12/09/21 10:35 Completed TROPONIN Q3H Lab 12/09/21 13:30 Ordered TROPONIN Q3H Lab 12/09/21 16:30 Ordered TROPONIN Q3H Lab 12/09/21 19:30 Ordered TROPONIN Q3H Lab 12/09/21 22:30 Ordered UA W/RFX CULTURE Stat Lab 12/09/21 10:25 Completed Medication Summary Discontinued Medications Generic Name Dose Route Start Last Admin Trade Name Freq PRN Reason Stop Dose Admin Sodium Chloride 1,000 mls @ 999 mls/hr 12/09/21 10:25 12/09/21 12:12 Sodium Chloride 0.9% 1000 Ml IV 12/09/21 11:25 Infused .Q1H1M STA Infusion Sodium Chloride Confirm 12/09/21 10:49 Sodium Chloride 0.9% 1000 Ml Administered 12/09/21 10:50 Dose 1,000 mls @ ud .ROUTE .[facility] ONE Ketorolac Tromethamine 30 mg 12/09/21 10:25 12/09/21 10:51 Ketorolac Tromethamine 30 Mg/Ml Inj IV 12/09/21 10:26 30 mg STAT ONE Administration Ketorolac Tromethamine Confirm 12/09/21 10:49 Ketorolac Tromethamine 30 Mg/Ml Inj Administered 12/09/21 10:50 Dose 30 mg .ROUTE .[facility] Ondansetron HCl 4 mg 12/09/21 10:25 12/09/21 10:51 Ondansetron Hcl 4 Mg/2 Ml Vial IV 12/09/21 10:26 4 mg STAT ONE Administration Ondansetron HCl Confirm 12/09/21 10:49 Ondansetron Hcl 4 Mg/2 Ml Vial Administered 12/09/21 10:50 Dose 4 mg .ROUTE .[facility] ONE Lab/Rad Data: Laboratory Result Diagrams 12/09/21 10:35 12/09/21 10:35 Laboratory Results 12/09/21 12/09/21 12/09/21 Range/Units 10:35 10:35 10:35 WBC 11.6 H (4.0-10.5) x10^3/uL RBC 4.14 (4.1-5.4) x10^6/uL Hgb 12.7 (12.0-16.0) g/dL Hct 38.2 (35-47) % MCV 92.3 (78-100) fL MCH 30.7 (26-32) pg MCHC 33.2 (32-36) g/dL RDW 14.6 H (11.5-14.0) % Plt Count 286 (150-450) x10^3/uL MPV 11.0 (7.5-11.0) fL Gran % 60.3 (36.0-66.0) % Immature Gran % (Auto) 1.1 H (0.00-0.4) % Nucleat RBC Rel Count 0.0 (0.00-0.1) % Eos # (Auto) 0.54 H (0-0.5) x10^3/uL Immature Gran # (Auto) 0.13 H (0.00-0.03) x10^3u/L Absolute Lymphs (auto) 2.25 (1.0-4.6) x10^3/uL Absolute Monos (auto) 1.61 H (0.0-1.3) x10^3/uL Absolute Nucleated RBC 0.00 (0.00-0.01) x10^3u/L Lymphocytes % 19.4 L (24.0-44.0) % Monocytes % 13.9 H (0.0-12.0) % Eosinophils % 4.7 (0.00-5.0) % Basophils % 0.6 (0.0-0.4) % Absolute Granulocytes 6.99 H (1.4-6.9) x10^3/uL Basophils # 0.07 (0-0.4) x10^3/uL Sodium 139 (137-145) mmol/L Potassium 4.3 (3.5-5.1) mmol/L Chloride 106 (98-107) mmol/L Carbon Dioxide 26 (22-30) mmol/L Anion Gap 11.5 (5-15) MEQ/L BUN 17 (7-17) mg/dL Creatinine 0.59 (0.52-1.04) mg/dL Estimated GFR > 60.0 ML/MIN Glucose 104 (74-106) mg/dL Calcium 9.6 (8.4-10.2) mg/dL Total Bilirubin 1.10 (0.2-1.3) mg/dL AST 88 H (14-36) U/L ALT 237 H (0-35) U/L Alkaline Phosphatase 269 H (38-126) U/L Troponin I < 0.012 (0.000-0.034) ng/mL Serum Total Protein 7.0 (6.3-8.2) g/dL Albumin 3.8 (3.5-5.0) g/dL Lipase 81 (23-300) U/L Urinalys Dipstick Clnc Urine Color (YELLOW) Urine Appearance (CLEAR) Urine pH (5-6) Ur Specific [place] (1.005-1.025) POC Urine Protein Conf (Negative) Urine Ketones (NEGATIVE) Urine Nitrite (NEGATIVE) Urine Bilirubin (NEGATIVE) Urine Urobilinogen (0-1) mg/dL Urine Leukocytes (NEGATIVE) Urine WBC (Auto) (0-5) /HPF Urine RBC (Auto) (0-2) /HPF U Epithel Cells (Auto) (FEW) /HPF Urine Bacteria (Auto) (NEGATIVE) /HPF Urine RBC (0-5) Kayden/ul Ur Culture Indicated? Urine Glucose (NEGATIVE) mg/dL 12/09/21 Range/Units 10:25 WBC (4.0-10.5) x10^3/uL RBC (4.1-5.4) x10^6/uL Hgb (12.0-16.0) g/dL Hct (35-47) % MCV (78-100) fL MCH (26-32) pg MCHC (32-36) g/dL RDW (11.5-14.0) % Plt Count (150-450) x10^3/uL MPV (7.5-11.0) fL Gran % (36.0-66.0) % Immature Gran % (Auto) (0.00-0.4) % Nucleat RBC Rel Count (0.00-0.1) % Eos # (Auto) (0-0.5) x10^3/uL Immature Gran # (Auto) (0.00-0.03) x10^3u/L Absolute Lymphs (auto) (1.0-4.6) x10^3/uL Absolute Monos (auto) (0.0-1.3) x10^3/uL Absolute Nucleated RBC (0.00-0.01) x10^3u/L Lymphocytes % (24.0-44.0) % Monocytes % (0.0-12.0) % Eosinophils % (0.00-5.0) % Basophils % (0.0-0.4) % Absolute Granulocytes (1.4-6.9) x10^3/uL Basophils # (0-0.4) x10^3/uL Sodium (137-145) mmol/L Potassium (3.5-5.1) mmol/L Chloride (98-107) mmol/L Carbon Dioxide (22-30) mmol/L Anion Gap (5-15) MEQ/L BUN (7-17) mg/dL Creatinine (0.52-1.04) mg/dL Estimated GFR ML/MIN Glucose (74-106) mg/dL Calcium (8.4-10.2) mg/dL Total Bilirubin (0.2-1.3) mg/dL AST (14-36) U/L ALT (0-35) U/L Alkaline Phosphatase (38-126) U/L Troponin I (0.000-0.034) ng/mL Serum Total Protein (6.3-8.2) g/dL Albumin (3.5-5.0) g/dL Lipase (23-300) U/L Urinalys Dipstick Clnc MAIN LAB Urine Color YELLOW (YELLOW) Urine Appearance CLEAR (CLEAR) Urine pH 7.0 (5-6) Ur Specific [place] 1.010 (1.005-1.025) POC Urine Protein Conf NEGATIVE (Negative) Urine Ketones NEGATIVE (NEGATIVE) Urine Nitrite NEGATIVE (NEGATIVE) Urine Bilirubin NEGATIVE (NEGATIVE) Urine Urobilinogen 0.2 (0-1) mg/dL Urine Leukocytes NEGATIVE (NEGATIVE) Urine WBC (Auto) NONE (0-5) /HPF Urine RBC (Auto) NONE (0-2) /HPF U Epithel Cells (Auto) NONE (FEW) /HPF Urine Bacteria (Auto) NONE (NEGATIVE) /HPF Urine RBC NEGATIVE (0-5) Kayden/ul Ur Culture Indicated? NO Urine Glucose NEGATIVE (NEGATIVE) mg/dL - Progress Progress: improved Progress Note: 12/09/21 12:19 51-year-old is evaluated for abdominal pain with distention. She is given fluid bolus and symptomatic treatment for pain, on reevaluation feeling much better. No peritoneal signs on repeated evaluation. Has a white count of 11, grossly unremarkable chemistries except for elevated liver enzymes which according to patient they were elevated couple of months ago when she had a lab work done outpatient. I have obtained CT abdomen pelvis without contrast which is essentially unremarkable for any acute pathology. It is probably that patient had a lot of mineral oil and now having cramping, recommended using appropriate amount next time if needed and Tylenol ibuprofen as needed as well for current cramping. Discussed signs symptoms of worsening needing return to ER which she seems understanding. Counseled pt/family regarding: lab results, diagnosis, need for follow-up, rad results - Departure Departure Disposition: Home Clinical Impression: Generalized abdominal pain Condition: Stable Critical Care Time: No Referrals: BRANDEN WILL [Primary Care Provider] - Follow up/PCP as directed (1-2 days for reevaluation) Instructions: Severe Abdominal Pain, Adult (DC) Additional Instructions: Drink plenty of fluids. Take Tylenol/ibuprofen as needed for pain. Follow-up with primary care physician for reevaluation. Return to ER for intractable abdominal pain/vomiting/diarrhea/fever chills etc.
[2021-12-09 12:25] VITALS: BP 136/61; PULSE 70
--- NOTE | 2021-12-09 17:50 | XRAY ---
Indication: Abdomen pain and distention. Multiple contiguous axial images obtained through the abdomen and pelvis without contrast. Comparison: August 23, 2021. Lung bases remains clear again with incidental right middle lobe calcified granuloma. Heart not enlarged. Stable small hiatal hernia. Noncontrasted stomach and bowel loops nonobstructed. Appendix not seen. Mild scattered colonic fecal debris greatest in the ascending colon. Gallbladder again demonstrates multiple intraluminal stones. No abnormal biliary distention. Again 21.8 cm hepatomegaly, splenic calcified granuloma, nonobstructing bilateral renal micro-calculus bilaterally, and tubal ligation clips. No free fluid/air. Remaining liver, pancreas, spleen, adrenal glands, kidneys, ureters, bladder, uterus, and aorta are unremarkable for noncontrast exam. Osseous structures again demonstrates remote L1 compression fracture, L1-L2 degenerative changes, L4 limbus vertebrae, and old right inferior pubic bone fracture. Impression: 1. Stable hiatal hernia, multiple gallstones, nonobstructing bilateral renal micro-calculus, hepatomegaly, chronic bony findings, and old granulomatous disease. 2. Remaining CT abdomen/pelvis without contrast exam is negative. Comment: Preliminary interpretation made by C. No critical discrepancy.
== END 2021-12-09 12:29 | disposition home or self-care (01) ==
LOC: ED 09:57
DX: R10.84 Generalized abdominal pain (principal); R11.0 Nausea; R19.7 Diarrhea, unspecified; Z72.0 Tobacco use; Z28.310 Unvaccinated for COVID-19
CPT/HCPCS: 36000; 36415; 74176; 80053; 81015; 83690; 84484; 85025; 93005; 96360; 96374; 96375; 99284; J1885; J2405

== ENCOUNTER 2022-01-17 23:30 | Emergency (ER) | payer OTHER ==
[2022-01-18] MEDS ORDERED: TORAdol 30 mg Injection IM ONE (00:25)
[2022-01-18] MEDS ORDERED: CLEOCIN 150 MG CAPSULE PO ONE (00:25)
--- NOTE | 2022-01-18 00:32 | ERPHSYRPT ---
- History of Present Illness Time Seen by Provider: 01/17/22 23:41 Source: patient Exam Limitations: no limitations Patient Subjective Stated Complaint: Pt states 2 days ago both of her ankles started hurting and since have begun to swell. Redness noted to both ankles. Ski n not hot to the touch Triage Nursing Assessment: Pt wheeled back to room. Able to transfer self to bed. Bilateral ankles slightly swollen, left more than the right. Redness p resent to both ankles. Skin normal to touch Physician History: 51 years old female presented in the ER with chief complaint of bilateral medial ankle swelling and pain last couple of days. 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 More on the left medial ankle with pain radiation to thigh but swelling and redness is limited around ankle. No fall or trauma reported. Timing/Duration: day(s) (2), gradual onset, worse Quality: itchy, painful Severity: moderate Location: extremities Possible Causes: insect bite Modifying Factors: Worsens With: scratching Associated Symptoms: change in skin texture, rash, swelling/mass/lumps Allergies/Adverse Reactions: doxycycline Allergy (Verified 12/02/21 15:53) sulfamethoxazole [From Bactrim] Allergy (Verified 12/02/21 15:53) trimethoprim [From Bactrim] Allergy (Verified 12/02/21 15:53) Hx Tetanus, Diphtheria Vaccination/Date Given: No Hx Influenza Vaccination/Date Given: No Hx Pneumococcal Vaccination/Date Given: No Travel Risk - International Travel Have you traveled outside of the country in past 3 weeks: No - Coronavirus Screening Are you exhibiting any of the following symptoms?: No Close contact with a COVID-19 positive Pt in past 14-21 Days: No - Vaccine Status Have you recieved a Covid-19 vaccination: No - Review of Systems Constitutional: No Symptoms Eyes: No Symptoms Ears, Nose, & Throat: No Symptoms Respiratory: No Symptoms Abdominal/Gastrointestinal: No Symptoms Genitourinary Symptoms: No Symptoms Musculoskeletal: Joint Pain Skin: Cellulitis, Skin Lesions Neurological: No Symptoms Endocrine: No Symptoms Hematologic/Lymphatic: No Symptoms - Past Medical History Pertinent Past Medical History: Yes Neurological History: No Pertinent History ENT History: No Pertinent History Cardiac History: No Pertinent History Respiratory History: No Pertinent History Endocrine Medical History: No Pertinent History Musculoskeletal History: Fractures GI Medical History: No Pertinent History History: No Pertinent History Psycho-Social History: Anxiety Female Reproductive Disorders: No Pertinent History Other Medical History: back pain - Past Surgical History Past Surgical History: Yes Neuro Surgical History: No Pertinent History Cardiac: No Pertinent History Respiratory: No Pertinent History Gastrointestinal: No Pertinent History Genitourinary: No Pertinent History Musculoskeletal: No Pertinent History Female Surgical History: Tubal Ligation - Social History Smoking Status: Current every day smoker How long have you smoked: 33 Exposure to second hand smoke: Yes Drug Use: none Patient Lives Alone: No - Nursing Vital Signs Nursing Vital Signs: Initial Vital Signs Temperature 98.2 F 01/18/22 00:07 Respiratory Rate 18 01/18/22 00:07 Blood Pressure 141/116 01/18/22 00:07 O2 Sat by Pulse Oximetry 97 01/18/22 00:07 Pain Scale Pain Intensity 10 - Physical Exam General Appearance: no apparent distress, alert Eye Exam: PERRL/EOMI Neck Exam: normal inspection, full range of motion Respiratory Exam: normal breath sounds, lungs clear Cardiovascular Exam: regular rate/rhythm, normal heart sounds Extremity Exam: normal range of motion, pelvis stable Neurologic Exam: alert, oriented x 3, cooperative Skin Exam: normal color, rash (Multiple areas on bilateral lower extremities with scratching and scabbed. Swelling both medial ankle, tender to touch especially the left 1. No obvious bony tenderness.) SpO2 Interpretation: normal SpO2: 97 O2 Delivery: Room Air Ordered Tests: Medication Summary Discontinued Medications Generic Name Dose Route Start Last Admin Trade Name Freq PRN Reason Stop Dose Admin Clindamycin HCl 300 mg 01/18/22 00:25 Clindamycin Hcl 150 Mg Capsule PO 01/18/22 00:26 STAT ONE Ketorolac Tromethamine 30 mg 01/18/22 00:25 Ketorolac Tromethamine 30 Mg/Ml Inj IM 01/18/22 00:26 STAT ONE - Progress Progress: unchanged Progress Note: 01/18/22 00:29 He will be given Toradol with symptomatic relief and started on clindamycin as patient has been taking amoxicillin with no significant relief. I have recommended blood work and imaging but she does not want anything to be done and wants antibiotics. Recommended outpatient follow-up. Discussed signs symptoms of worsening needing return to ER which she seems understanding. Counseled pt/family regarding: diagnosis, need for follow-up - Departure Departure Disposition: Home Clinical Impression: Lower extremity cellulitis Condition: Stable Critical Care Time: No Referrals: BRANDEN WILL [Primary Care Provider] - Follow Up with PCP/3 days Instructions: Cellulitis (Skin Infection), Adult (DC) Additional Instructions: Take Tylenol/ibuprofen as needed. Follow-up with primary care for reevaluation. Return to ER for increasing pain swelling redness, fever chills, difficulty ambulation etc. Prescriptions: Ibuprofen 600 mg PO Q6HPRN PRN 10 Days #20 tablet PRN Reason: Pain clindamycin HCL [Clindamycin HCl] 300 mg PO QID 7 Days #28 cap
[2022-01-18] MEDS ORDERED: CLEOCIN 150 MG CAPSULE ONE (00:34)
[2022-01-18] MEDS ORDERED: TORAdol 30 mg Injection ONE (00:34)
[2022-01-18 01:09] VITALS: BP 161/111; PULSE 104; O2SAT 100
== END 2022-01-18 01:07 | disposition home or self-care (01) ==
LOC: ED 23:30
DX: L03.116 Cellulitis of left lower limb (principal); L03.115 Cellulitis of right lower limb; Z72.0 Tobacco use; Z28.310 Unvaccinated for COVID-19
CPT/HCPCS: 96372; 99283; J1885; A9270-GY

== ENCOUNTER 2022-01-19 14:07 | Emergency (ER) | payer OTHER ==
[2022-01-19] MEDS ORDERED: XYLOCAINE 1% HCL 20 ML MDV IJ ONE (14:08)
[2022-01-19 14:26] VITALS: BP 140/98; PULSE 122; O2SAT 98
[2022-01-19 15:04] LABS: Absolute Neutrophil Ct (ANC) 5.82 x10^3/uL (1.4-6.9); Basophil (Absolute #) 0.07 x10^3/uL (0-0.4); Eosinophil % 10.5 % (0.00-5.0); Eosinophil (Absolute #) 0.99 x10^3/uL (0-0.5); Hematocrit 36.2 % (35-47); Hemoglobin 11.9 g/dL (12.0-16.0); Lymphocyte (Absolute #) 1.48 x10^3/uL (1.0-4.6); Lymphocytes % 15.7 % (24.0-44.0); Mean Cell Volume 92.6 fL (78-100); Mean Corpuscular Hemoglobin 30.4 pg (26-32); Mean Corpuscular Hgb Concent. 32.9 g/dL (32-36); Mean Platelet Volume 10.5 fL (7.5-11.0); Monocyte (Absolute #) 1.02 x10^3/uL (0.0-1.3); Monocytes % 10.9 % (0.0-12.0); Platelet Count 329 x10^3/uL (150-450); Red Blood Count 3.91 x10^6/uL (4.1-5.4); Red Cell Distribution Width 14.2 % (11.5-14.0); White Blood Count 9.4 x10^3/uL (4.0-10.5)
[2022-01-19 15:13] LABS: Appearance CLEAR (CLEAR); Bilirubin NEGATIVE (NEGATIVE); Glucose NEGATIVE (NEGATIVE); Ketones NEGATIVE (NEGATIVE); Protein,Urine Dip NEGATIVE (Negative); RBC NEGATIVE Ery/ul (0-5)
[2022-01-19 15:14] LABS: Dipstick done @ ? MAIN LAB; Nitrite NEGATIVE (NEGATIVE); Urobilinogen 0.2 mg/dL (0-1)
[2022-01-19 15:19] LABS: ALKALINE PHOSPHATASE 182 U/L (38-126); BLOOD UREA NITROGEN 15 mg/dL (7-17); CHLORIDE 106 mmol/L (98-107); Calcium 9.7 mg/dL (8.4-10.2); Carbon Dioxide 29 mmol/L (22-30); Creatinine 1 0.84 mg/dL (0.52-1.04); EST GLOMERULAR FILTRATION RATE > 60.0 ML/MIN; Glucose 112 mg/dL (74-106); Potassium 3.3 mmol/L (3.5-5.1); SGOT/AST 80 U/L (14-36); SGPT/ALT 82 U/L (0-35); SODIUM 142 mmol/L (137-145); Total Protein 6.6 g/dL (6.3-8.2); Uric Acid 4.9 mg/dL (2.6-6.0)
[2022-01-19 15:49] LABS: Epithelial Cells RARE /HPF (FEW); Mucus SLIGHT /HPF (NEGATIVE); RBC NONE SEEN /HPF (0-2); WBC 0-2 /HPF (0-5)
[2022-01-19 15:50] LABS: Bacteria NONE SEEN /HPF (NEGATIVE); Urine Cultured Indicated? n
[2022-01-19] MEDS ORDERED: DELTASONE 20 MG PO ONE (15:54)
[2022-01-19] MEDS ORDERED: Rocephin 1000 MG INJ IM ONE (15:54)
--- NOTE | 2022-01-19 15:56 | ERPHSYRPT ---
- History of Present Illness Time Seen by Provider: 01/19/22 14:39 Source: patient Exam Limitations: no limitations Patient Subjective Stated Complaint: Pt c/o of blu leg pain and swelling, the left leg is and foot is more swollen than the right, blu legs have swelling and bites and the left leg has a rash Triage Nursing Assessment: Pt brought to the ER by her boyfriend, tachycardic, hypertensive, rates pain as 9/10, left foot/ankle worse than right, bites and sores scattered over body, pulses normal Physician History: 51 years old presented in the ER with bilateral lower leg/ankle area on the medial aspect swelling for the last 4 days with progressive worsening despite being on antibiotics. Patient was seen in the ER, was placed on clindamycin but does not seem helping a whole lot. Complaining of moderate pain with tightness in the lower leg/ankle area. No restricted range of motion at ankles. No fever or chills reported. She has multiple bug bites with scratching and rash which produced swelling after she left it open. Timing/Duration: day(s) (4), constant, gradual onset, worse Quality: itchy, painful Severity: moderate Location: feet, extremities Possible Causes: insect bite Associated Symptoms: rash, swelling/mass/lumps Allergies/Adverse Reactions: doxycycline Allergy (Verified 01/19/22 14:26) sulfamethoxazole [From Bactrim] Allergy (Verified 01/19/22 14:26) trimethoprim [From Bactrim] Allergy (Verified 01/19/22 14:26) Hx Tetanus, Diphtheria Vaccination/Date Given: No Hx Influenza Vaccination/Date Given: No Hx Pneumococcal Vaccination/Date Given: No Travel Risk - International Travel Have you traveled outside of the country in past 3 weeks: No - Coronavirus Screening Are you exhibiting any of the following symptoms?: No Close contact with a COVID-19 positive Pt in past 14-21 Days: No - Vaccine Status Have you recieved a Covid-19 vaccination: No - Review of Systems Constitutional: No Symptoms Eyes: No Symptoms Respiratory: No Symptoms Cardiac: No Symptoms Abdominal/Gastrointestinal: No Symptoms Genitourinary Symptoms: No Symptoms Musculoskeletal: No Symptoms Skin: Cellulitis, Rash, Skin Lesions Neurological: No Symptoms Psychological: Anxiety Endocrine: No Symptoms - Past Medical History Pertinent Past Medical History: Yes Neurological History: No Pertinent History ENT History: No Pertinent History Cardiac History: No Pertinent History Respiratory History: No Pertinent History Endocrine Medical History: No Pertinent History Musculoskeletal History: Fractures GI Medical History: No Pertinent History History: No Pertinent History Psycho-Social History: Anxiety Female Reproductive Disorders: No Pertinent History Other Medical History: back pain - Past Surgical History Past Surgical History: Yes Neuro Surgical History: No Pertinent History Cardiac: No Pertinent History Respiratory: No Pertinent History Gastrointestinal: No Pertinent History Genitourinary: No Pertinent History Musculoskeletal: No Pertinent History Female Surgical History: Tubal Ligation - Social History Smoking Status: Current every day smoker How long have you smoked: 33 Exposure to second hand smoke: Yes Drug Use: none Patient Lives Alone: No - Nursing Vital Signs Nursing Vital Signs: Initial Vital Signs Temperature 98.3 F 01/19/22 14:11 Pulse Rate 122 H 01/19/22 14:11 Blood Pressure 140/98 01/19/22 14:11 O2 Sat by Pulse Oximetry 98 01/19/22 14:11 Pain Scale Pain Intensity 9 - Physical Exam General Appearance: no apparent distress, alert, anxiety Eye Exam: PERRL/EOMI Ears, Nose, Throat Exam: normal ENT inspection Neck Exam: normal inspection, full range of motion Respiratory Exam: normal breath sounds, lungs clear Cardiovascular Exam: normal heart sounds, tachycardia Extremity Exam: inflammation (Bilateral medial ankle/lower leg area. Tender to touch. Blanchable. Mild increase in temperature. Intact range of motion at ankle.), swelling, tenderness Neurologic Exam: alert, oriented x 3, cooperative Skin Exam: normal color SpO2 Interpretation: normal SpO2: 98 O2 Delivery: Room Air Ordered Tests: Active Orders 24 hr Category Date Time Status BLOOD CULTURE Stat Lab 01/19/22 14:47 Received CBC W DIFF Stat Lab 01/19/22 14:53 Completed CMP Stat Lab 01/19/22 14:53 Completed PROCALCITONIN Stat Lab 01/19/22 14:53 Completed UA W/RFX CULTURE Stat Lab 01/19/22 14:57 Completed Uric Acid Stat Lab 01/19/22 14:53 Completed Medication Summary Discontinued Medications Generic Name Dose Route Start Last Admin Trade Name Freq PRN Reason Stop Dose Admin Ceftriaxone Sodium 1,000 mg 01/19/22 15:54 Ceftriaxone Sodium 1000 Mg Inj Vial IM 01/19/22 15:55 STAT ONE Prednisone 60 mg 01/19/22 15:54 Prednisone 20 Mg Tablet PO 01/19/22 15:55 STAT ONE Lab/Rad Data: Laboratory Result Diagrams 01/19/22 14:53 01/19/22 14:53 Laboratory Results 01/19/22 01/19/22 01/19/22 Range/Units 14:57 14:53 14:53 WBC (4.0-10.5) x10^3/uL RBC (4.1-5.4) x10^6/uL Hgb (12.0-16.0) g/dL Hct (35-47) % MCV (78-100) fL MCH (26-32) pg MCHC (32-36) g/dL RDW (11.5-14.0) % Plt Count (150-450) x10^3/uL MPV (7.5-11.0) fL Gran % (36.0-66.0) % Immature Gran % (Auto) (0.00-0.4) % Nucleat RBC Rel Count (0.00-0.1) % Eos # (Auto) (0-0.5) x10^3/uL Immature Gran # (Auto) (0.00-0.03) x10^3u/L Absolute Lymphs (auto) (1.0-4.6) x10^3/uL Absolute Monos (auto) (0.0-1.3) x10^3/uL Absolute Nucleated RBC (0.00-0.01) x10^3u/L Lymphocytes % (24.0-44.0) % Monocytes % (0.0-12.0) % Eosinophils % (0.00-5.0) % Basophils % (0.0-0.4) % Absolute Granulocytes (1.4-6.9) x10^3/uL Basophils # (0-0.4) x10^3/uL Sodium 142 (137-145) mmol/L Potassium 3.3 L (3.5-5.1) mmol/L Chloride 106 (98-107) mmol/L Carbon Dioxide 29 (22-30) mmol/L Anion Gap 10.0 (5-15) MEQ/L BUN 15 (7-17) mg/dL Creatinine 0.84 (0.52-1.04) mg/dL Estimated GFR > 60.0 ML/MIN Glucose 112 H (74-106) mg/dL Uric Acid 4.9 (2.6-6.0) mg/dL Calcium 9.7 (8.4-10.2) mg/dL Total Bilirubin 0.60 (0.2-1.3) mg/dL AST 80 H (14-36) U/L ALT 82 H (0-35) U/L Alkaline Phosphatase 182 H (38-126) U/L Serum Total Protein 6.6 (6.3-8.2) g/dL Albumin 4.0 (3.5-5.0) g/dL Procalcitonin 0.066 (0.030-0.080) ng/mL Urinalys Dipstick Clnc MAIN LAB Urine Color YELLOW (YELLOW) Urine Appearance CLEAR (CLEAR) Urine pH 7.0 (5-6) Ur Specific [place] 1.020 (1.005-1.025) POC Urine Protein Conf NEGATIVE (Negative) Urine Ketones NEGATIVE (NEGATIVE) Urine Nitrite NEGATIVE (NEGATIVE) Urine Bilirubin NEGATIVE (NEGATIVE) Urine Urobilinogen 0.2 (0-1) mg/dL Urine Leukocytes NEGATIVE (NEGATIVE) Urine WBC (Auto) 0-2 (0-5) /HPF Urine RBC (Auto) NONE SEEN (0-2) /HPF U Epithel Cells (Auto) RARE (FEW) /HPF Urine Bacteria (Auto) NONE SEEN (NEGATIVE) /HPF Urine RBC NEGATIVE (0-5) Kayden/ul Unidentified Crystals 2-5 (NEGATIVE) /HPF Urine Mucus (Auto) SLIGHT (NEGATIVE) /HPF Ur Culture Indicated? n Urine Glucose NEGATIVE (NEGATIVE) mg/dL 01/19/22 Range/Units 14:53 WBC 9.4 (4.0-10.5) x10^3/uL RBC 3.91 L (4.1-5.4) x10^6/uL Hgb 11.9 L (12.0-16.0) g/dL Hct 36.2 (35-47) % MCV 92.6 (78-100) fL MCH 30.4 (26-32) pg MCHC 32.9 (32-36) g/dL RDW 14.2 H (11.5-14.0) % Plt Count 329 (150-450) x10^3/uL MPV 10.5 (7.5-11.0) fL Gran % 62.0 (36.0-66.0) % Immature Gran % (Auto) 0.2 (0.00-0.4) % Nucleat RBC Rel Count 0.0 (0.00-0.1) % Eos # (Auto) 0.99 H (0-0.5) x10^3/uL Immature Gran # (Auto) 0.02 (0.00-0.03) x10^3u/L Absolute Lymphs (auto) 1.48 (1.0-4.6) x10^3/uL Absolute Monos (auto) 1.02 (0.0-1.3) x10^3/uL Absolute Nucleated RBC 0.00 (0.00-0.01) x10^3u/L Lymphocytes % 15.7 L (24.0-44.0) % Monocytes % 10.9 (0.0-12.0) % Eosinophils % 10.5 H (0.00-5.0) % Basophils % 0.7 (0.0-0.4) % Absolute Granulocytes 5.82 (1.4-6.9) x10^3/uL Basophils # 0.07 (0-0.4) x10^3/uL Sodium (137-145) mmol/L Potassium (3.5-5.1) mmol/L Chloride (98-107) mmol/L Carbon Dioxide (22-30) mmol/L Anion Gap (5-15) MEQ/L BUN (7-17) mg/dL Creatinine (0.52-1.04) mg/dL Estimated GFR ML/MIN Glucose (74-106) mg/dL Uric Acid (2.6-6.0) mg/dL Calcium (8.4-10.2) mg/dL Total Bilirubin (0.2-1.3) mg/dL AST (14-36) U/L ALT (0-35) U/L Alkaline Phosphatase (38-126) U/L Serum Total Protein (6.3-8.2) g/dL Albumin (3.5-5.0) g/dL Procalcitonin (0.030-0.080) ng/mL Urinalys Dipstick Clnc Urine Color (YELLOW) Urine Appearance (CLEAR) Urine pH (5-6) Ur Specific [place]rington (1.005-1.025) POC Urine Protein Conf (Negative) Urine Ketones (NEGATIVE) Urine Nitrite (NEGATIVE) Urine Bilirubin (NEGATIVE) Urine Urobilinogen (0-1) mg/dL Urine Leukocytes (NEGATIVE) Urine WBC (Auto) (0-5) /HPF Urine RBC (Auto) (0-2) /HPF U Epithel Cells (Auto) (FEW) /HPF Urine Bacteria (Auto) (NEGATIVE) /HPF Urine RBC (0-5) Kayden/ul Unidentified Crystals (NEGATIVE) /HPF Urine Mucus (Auto) (NEGATIVE) /HPF Ur Culture Indicated? Urine Glucose (NEGATIVE) mg/dL - Progress Progress: unchanged Progress Note: 01/19/22 15:58 She does not want any pain medication. She has normal white count, procalcitonin. Has elevated transaminases which were there before. Clinically she seems like she has cellulitis. I would give her a dose of IM Rocephin and will start her on steroids and recommended continue with clindamycin and outpatient follow-up. Counseled pt/family regarding: lab results, diagnosis, need for follow-up - Departure Departure Disposition: Home Clinical Impression: Lower extremity cellulitis Condition: Stable Critical Care Time: No Referrals: BRANDEN WILL [Primary Care Provider] - Follow up/PCP as directed (In 2 days for reevaluation) Instructions: Cellulitis (Skin Infection), Adult ED Additional Instructions: Take Tylenol as needed for pain. Keep it elevated. Continue with clindamycin. Follow-up with primary care for reevaluation. Return to ER for worsening sw elling, pain, fever chills, difficulty movements of the ankle etc. Prescriptions: Prednisone 20 mg [Deltasone 20 mg] 60 mg PO DAILY 5 Days #15 tablet
[2022-01-19] MEDS ORDERED: Rocephin 1000 MG INJ ONE (15:58)
[2022-01-19] MEDS ORDERED: DELTASONE 20 MG ONE (15:58)
== END 2022-01-19 16:15 | disposition home or self-care (01) ==
LOC: ED 14:07
DX: L03.116 Cellulitis of left lower limb (principal); L03.115 Cellulitis of right lower limb; M79.661 Pain in right lower leg; M79.662 Pain in left lower leg; Z72.0 Tobacco use; Z79.52 Long term (current) use of systemic steroids; Z28.310 Unvaccinated for COVID-19
CPT/HCPCS: 36415; 80053; 81015; 84145; 84550; 85025; 87040; 96372; 99283; J0696; A9270-GY

== ENCOUNTER 2022-01-24 10:11 | Emergency (ER) | payer OTHER ==
[2022-01-24 11:12] VITALS: BP 140/94; PULSE 90; O2SAT 98
--- NOTE | 2022-01-24 11:34 | XRAY ---
Indication: Pain. Two-dimensional sonogram and color Doppler imaging of the major venous vessels of the left leg performed. Comparison: None No thrombus seen in the examined deep venous vessels of the left leg including greater saphenous vein. Veins demonstrate normal compressibility. Venous waveforms are normal with and without augmentation. Impression: Left leg negative for DVT.
--- NOTE | 2022-01-24 11:36 | ERPHSYRPT ---
- History of Present Illness Time Seen by Provider: 01/24/22 11:20 Source: patient Exam Limitations: no limitations Patient Subjective Stated Complaint: Pt states "I came back here because the cellulitis is about gone. I was given medications and the meds are gone." Triage Nursing Assessment: Pt presented alert and oriented X 3, skin pwd Pt ambulates with a slight limp. PT has pain in right leg. PT resting comfortably on the bed. Physician History: Patient is a 51-year-old female presents to our ED for evaluation of possible ongoing cellulitis. Patient states she was diagnosed with cellulitis at her last visit. Patient was treated with clindamycin. Patient completed her course of clindamycin. Patient wants to be sure that her cellulitis has resolved. Patient concerned that she still has some pain in her left leg. No trauma. No fever. No shortness of breath. No extremity numbness tingling or weakness. Patient is ambulatory with a normal gait. Patient voices no other complaints or concerns at this time. Portions of this note were created with voice recognition technology. There may be grammatical, spelling, punctuation or sound alike errors Timing/Duration: day(s) Severity: moderate (1 week) Modifying Factors: Improves With: nothing Associated Symptoms: denies symptoms Allergies/Adverse Reactions: doxycycline Allergy (Verified 01/19/22 14:26) sulfamethoxazole [From Bactrim] Allergy (Verified 01/19/22 14:26) trimethoprim [From Bactrim] Allergy (Verified 01/19/22 14:26) Home Medications: No Reportable Medications [No Reported Medications] 01/24/22 [History] Hx Tetanus, Diphtheria Vaccination/Date Given: No Hx Influenza Vaccination/Date Given: No Hx Pneumococcal Vaccination/Date Given: No Immunizations Up to Date: Yes Travel Risk - International Travel Have you traveled outside of the country in past 3 weeks: No - Coronavirus Screening Are you exhibiting any of the following symptoms?: No Close contact with a COVID-19 positive Pt in past 14-21 Days: No - Vaccine Status Have you recieved a Covid-19 vaccination: No - Review of Systems Constitutional: No Symptoms, No Fever, No Chills Eyes: No Symptoms Ears, Nose, & Throat: No Symptoms Respiratory: No Symptoms, No Cough, No Dyspnea Cardiac: No Symptoms, No Chest Pain, No Edema, No Syncope Abdominal/Gastrointestinal: No Symptoms, No Abdominal Pain, No Nausea, No Vomiting, No Diarrhea Genitourinary Symptoms: No Symptoms, No Dysuria Musculoskeletal: No Symptoms, No Back Pain, No Neck Pain Skin: No Symptoms, No Rash Neurological: No Symptoms, No Dizziness, No Focal Weakness, No Sensory Changes Psychological: No Symptoms Endocrine: No Symptoms Hematologic/Lymphatic: No Symptoms Immunological/Allergic: No Symptoms All Other Systems: Reviewed and Negative - Past Medical History Pertinent Past Medical History: Yes Neurological History: No Pertinent History ENT History: No Pertinent History Cardiac History: No Pertinent History Respiratory History: No Pertinent History Endocrine Medical History: No Pertinent History Musculoskeletal History: Fractures GI Medical History: No Pertinent History History: No Pertinent History Psycho-Social History: Anxiety Female Reproductive Disorders: No Pertinent History Other Medical History: back pain - Past Surgical History Past Surgical History: Yes Neuro Surgical History: No Pertinent History Cardiac: No Pertinent History Respiratory: No Pertinent History Gastrointestinal: No Pertinent History Genitourinary: No Pertinent History Musculoskeletal: No Pertinent History Female Surgical History: Tubal Ligation - Social History Smoking Status: Current every day smoker How long have you smoked: 33 Exposure to second hand smoke: Yes Drug Use: none Patient Lives Alone: No - Nursing Vital Signs Nursing Vital Signs: Initial Vital Signs Temperature 97.6 F 01/24/22 11:08 Pulse Rate 90 01/24/22 11:08 Respiratory Rate 18 01/24/22 11:08 Blood Pressure 140/94 01/24/22 11:08 O2 Sat by Pulse Oximetry 98 01/24/22 11:08 Pain Scale Pain Intensity 6 - Physical Exam General Appearance: no apparent distress, alert Eye Exam: PERRL/EOMI, eyes nml inspection Ears, Nose, Throat Exam: normal ENT inspection, TMs normal, pharynx normal, moist mucous membranes Neck Exam: normal inspection, non-tender, supple, full range of motion Respiratory Exam: normal breath sounds, lungs clear, No respiratory distress Cardiovascular Exam: regular rate/rhythm, normal heart sounds, normal peripheral pulses Gastrointestinal/Abdomen Exam: soft, normal bowel sounds, No tenderness, No mass Back Exam: normal inspection, normal range of motion, No CVA tenderness, No vertebral tenderness Extremity Exam: normal inspection, normal range of motion, pelvis stable, other (Positive Homans' sign. No signs of trauma. No signs of cellulitis. Compartments are soft. Cap refill less than 2 seconds. Extremity neurovascular tact distally extremities pink warm well perfused) Neurologic Exam: alert, oriented x 3, cooperative, normal mood/affect, nml cerebellar function, nml station & gait, sensation nml, No motor deficits Skin Exam: normal color, warm, dry, No rash Lymphatic Exam: No adenopathy SpO2 Interpretation: normal SpO2: 98 O2 Delivery: Room Air - Course Nursing assessment & vital signs reviewed: Yes - Radiology Ultrasound Exam Venous Lower Extremity Ultrasound: negative (Work-up negative for DVT.) Ordered Tests: Active Orders 24 hr Category Date Time Status VENOUS UNILAT/LIMITED EXTREMIT [US] Stat Exams 01/24/22 11:12 Completed - Progress Progress: improved Progress Note: Patient reassessed. She feels well. Patient has no evidence of residual cellulitis. No indication for additional antibiotics. Ultrasound involved left lower extremity negative. No indication for further work-up at this time. Will discharge home. Patient agrees to follow-up with primary care doctor within 48 hours for evaluation. Portions of this note were created with voice recognition technology. There may be grammatical, spelling, punctuation or sound alike errors 01/24/22 11:41 Counseled pt/family regarding: lab results, diagnosis, need for follow-up, rad results - Departure Departure Disposition: Home Clinical Impression: Leg pain, Visit for wound check Condition: Stable Critical Care Time: No Referrals: BRANDEN WILL [Primary Care Provider] - Follow up/PCP as directed Additional Instructions: Discharge/Care Plan LYDIA RICHEY was seen on 01/24/22 in the Emergency Room. The patient was counseled regarding Diagnosis,Lab results, Imaging studies, need for follow up and when to return to the Emergency Room. Prescriptions given: Discharge Note I have spoken with the patient and/or caregivers. I have explained the patient's condition, diagnosis and treatment plan based on the information available to me at this time. I have answered the patient's and/or caregiver's questions and addressed any concerns. The patient and/or caregivers have as good understanding of the patient's diagnosis, condition and treatment plan as can be expected at this point. The vital signs have been stable. The patient's condition is stable and appropriate for discharge from the emergency department. The patient will pursue further outpatient evaluation with the primary care physician or other designated or consulting physician as outlined in the discharge instructions. The patient and/or caregivers are agreeable to this plan of care and follow-up instructions have been explained in detail. The patient and/or caregivers have received these instruction. The patient/and or caregivers are aware that any significant change in condition or worsening of symptoms should prompt an immediate return to this or the closest emergency department or call 911.
== END 2022-01-24 11:52 | disposition home or self-care (01) ==
LOC: ED 10:11
DX: Z48.00 Encounter for change or removal of nonsurgical wound dressing (principal); M79.605 Pain in left leg; Z72.0 Tobacco use; Z28.310 Unvaccinated for COVID-19
CPT/HCPCS: 93971; 99283

== ENCOUNTER 2022-04-22 18:05 | Emergency (ER) | payer OTHER ==
[2022-04-22 18:32] VITALS: BP 154/94; PULSE 78
[2022-04-22 18:35] VITALS: O2SAT 97
[2022-04-22] MEDS ORDERED: Rocephin 1000 MG INJ IM ONE (20:25)
[2022-04-22] MEDS ORDERED: XYLOCAINE 1% HCL 20 ML MDV ONE (20:49)
[2022-04-22] MEDS ORDERED: Rocephin 1000 MG INJ ONE (20:49)
--- NOTE | 2022-04-22 21:48 | ERPHSYRPT ---
- History of Present Illness Time Seen by Provider: 04/22/22 18:40 Source: patient Exam Limitations: no limitations Patient Subjective Stated Complaint: PT HERE FOR "SINUS INFECTION" , CO PAIN TO RIGHT SIDE OF FACE, PRESSURE TO FACE, SHE STATES THIS IS HOW IT GOES WHEN SHE HAS A SINUS INFECTION, PT REFUSED TO GET IN GOWN, HAS NOT NOT HAD ANY OCT MEDS Triage Nursing Assessment: PT ALERT, RESP EASY, FACE MASK IN PLACE, SKIN W/D/P, NO EDEMA NOTED Physician History: Patient is a 51-year-old female presents emergency department for evaluation of sinus pressure and pain to the right side of her neck. Patient admits to h istory of chronic recurrent sinus infections. Patient states she was recently evaluated for the sinus infection started on Keflex. Patient states Keflex did not work for her. Patient requesting Augmentin. Symptoms are mild to moderate in intensity. No specific worsening improving factors. Patient voices no other complaints concerns at this time. Patient declined pain medication Portions of this note were created with voice recognition technology. There may be grammatical, spelling, punctuation or sound alike errors Timing/Duration: today Severity: moderate Modifying Factors: Improves With: nothing Associated Symptoms: denies symptoms Allergies/Adverse Reactions: doxycycline Allergy (Verified 04/22/22 18:34) sulfamethoxazole [From Bactrim] Allergy (Verified 04/22/22 18:34) trimethoprim [From Bactrim] Allergy (Verified 04/22/22 18:34) Hx Tetanus, Diphtheria Vaccination/Date Given: No Hx Influenza Vaccination/Date Given: No Hx Pneumococcal Vaccination/Date Given: No Immunizations Up to Date: Yes Travel Risk - International Travel Have you traveled outside of the country in past 3 weeks: No - Coronavirus Screening Are you exhibiting any of the following symptoms?: Yes Symptoms: Headaches/Body Aches/Fatigue - Vaccine Status Have you recieved a Covid-19 vaccination: No - Review of Systems Constitutional: No Symptoms, No Fever, No Chills Eyes: No Symptoms Ears, Nose, & Throat: No Symptoms Respiratory: No Symptoms, No Cough, No Dyspnea Cardiac: No Symptoms, No Chest Pain, No Edema, No Syncope Abdominal/Gastrointestinal: No Symptoms, No Abdominal Pain, No Nausea, No Vomiting, No Diarrhea Genitourinary Symptoms: No Symptoms, No Dysuria Musculoskeletal: No Symptoms, No Back Pain, No Neck Pain Skin: No Symptoms, No Rash Neurological: No Symptoms, No Dizziness, No Focal Weakness, No Sensory Changes Psychological: No Symptoms Endocrine: No Symptoms Hematologic/Lymphatic: No Symptoms Immunological/Allergic: No Symptoms All Other Systems: Reviewed and Negative - Past Medical History Pertinent Past Medical History: Yes Neurological History: No Pertinent History ENT History: No Pertinent History Cardiac History: No Pertinent History Respiratory History: No Pertinent History Endocrine Medical History: No Pertinent History Musculoskeletal History: Fractures GI Medical History: No Pertinent History History: No Pertinent History Psycho-Social History: Anxiety Female Reproductive Disorders: No Pertinent History Other Medical History: back pain - Past Surgical History Past Surgical History: Yes Neuro Surgical History: No Pertinent History Cardiac: No Pertinent History Respiratory: No Pertinent History Gastrointestinal: No Pertinent History Genitourinary: No Pertinent History Musculoskeletal: No Pertinent History Female Surgical History: Tubal Ligation - Social History Smoking Status: Current every day smoker How long have you smoked: 33 Exposure to second hand smoke: Yes Drug Use: methamphetamines Patient Lives Alone: No - Nursing Vital Signs Nursing Vital Signs: Initial Vital Signs Temperature 97.4 F 04/22/22 18:27 Pulse Rate 78 04/22/22 18:27 Respiratory Rate 18 04/22/22 18:27 Blood Pressure 154/94 04/22/22 18:27 O2 Sat by Pulse Oximetry 96 04/22/22 18:27 Pain Scale Pain Intensity 8 - Physical Exam General Appearance: no apparent distress, alert Eye Exam: PERRL/EOMI, eyes nml inspection Ears, Nose, Throat Exam: normal ENT inspection, TMs normal, pharynx normal, moist mucous membranes, other (Mildly erythematous oropharynx. Tender frontal and maxillary sinuses.) Neck Exam: normal inspection, non-tender, supple, full range of motion Respiratory Exam: normal breath sounds, lungs clear, airway intact, No res piratory distress Cardiovascular Exam: regular rate/rhythm, normal heart sounds, normal peripheral pulses Gastrointestinal/Abdomen Exam: soft, normal bowel sounds, No tenderness, No mass Back Exam: normal inspection, normal range of motion, No CVA tenderness, No vertebral tenderness Extremity Exam: normal inspection, normal range of motion, pelvis stable Neurologic Exam: alert, oriented x 3, cooperative, normal mood/affect, nml cerebellar function, nml station & gait, sensation nml, No motor deficits Skin Exam: normal color, warm, dry, No rash Lymphatic Exam: No adenopathy SpO2 Interpretation: normal SpO2: 97 O2 Delivery: Room Air - Course Nursing assessment & vital signs reviewed: Yes - Radiology Exams Other X-ray Interpretation: Teleradiologist Report (CT neck reveals no comps. Mild to moderate C4-C7 degenerative disc disease otherwise negative neck. Old right clavicle fracture) Ordered Tests: Active Orders 24 hr Category Date Time Status NECK WO CONTRAST [CT] Stat Exams 04/22/22 20:27 Taken Medication Summary Discontinued Medications Generic Name Dose Route Start Last Admin Trade Name Dottie PRN Reason Stop Dose Admin Ceftriaxone Sodium 1,000 mg 04/22/22 20:25 04/22/22 21:08 Ceftriaxone Sodium 1000 Mg Inj Vial IM 04/22/22 20:26 1,000 mg STAT ONE Administration Ceftriaxone Sodium Confirm 04/22/22 20:49 Ceftriaxone Sodium 1000 Mg Inj Vial Administered 04/22/22 20:50 Dose 1,000 mg .ROUTE .STK-MED ONE Lidocaine HCl Confirm 04/22/22 20:49 Lidocaine Hcl 1% 20 Ml Mdv 20 Ml Ml Administered 04/22/22 20:50 Dose 1 ml .ROUTE .STK-MED ONE - Progress Progress: improved Progress Note: Patient reassessed. Patient appears to have a mild pharyngitis with a sinusitis. CT scan essentially nonremarkable. Patient received a dose of Rocephin in our ED. A prescription for Augmentin for the patient's pharmacy. Will discharge home. Patient agrees to follow-up with primary care doctor within 48 hours for evaluation. Portions of this note were created with voice recognition technology. There may be grammatical, spelling, punctuation or sound alike errors 04/22/22 21:47 Counseled pt/family regarding: diagnosis, need for follow-up, rad results - Departure Departure Disposition: Home Clinical Impression: Sinus pain, Neck pain, Sinusitis Condition: Stable Critical Care Time: No Referrals: BRANDEN WILL [Primary Care Provider] - Follow up/PCP as directed Additional Instructions: Discharge/Care Plan LYDIA RICHEY was seen on 04/22/22 in the Emergency Room. The patient was counseled regarding Diagnosis,Lab results, Imaging studies, need for follow up and when to return to the Emergency Room. Prescriptions given: Discharge Note I have spoken with the patient and/or caregivers. I have explained the patient's condition, diagnosis and treatment plan based on the information available to me at this time. I have answered the patient's and/or caregiver's questions and addressed any concerns. The patient and/or caregivers have as good understanding of the patient's diagnosis, condition and treatment plan as can be expected at this point. The vital signs have been stable. The patient's condition is stable and appropriate for discharge from the emergency department. The patient will pursue further outpatient evaluation with the primary care physician or other designated or consulting physician as outlined in the discharge instructions. The patient and/or caregivers are agreeable to this plan of care and follow-up instructions have been explained in detail. The patient and/or caregivers have received these instruction. The patient/and or caregivers are aware that any significant change in condition or worsening of symptoms should prompt an immediate return to this or the closest emergency department or call 911. Prescriptions: Amox Tr/Potass Clav. 875 mg [Augmentin 875-125 Tablet] 875 mg PO BID 7 Days #14 tablet
--- NOTE | 2022-04-23 08:43 | XRAY ---
Indication: Neck pain and numbness radiating to both arms. Multiple contiguous axial images obtained through the neck without contrast as ordered. Comparison: None Parotid and submandible glands are bilaterally symmetric. Scattered centimeter/subcentimeter cervical and supraclavicular lymph nodes, none pathologically enlarged. Thyroid gland homogeneous with slightly enlarged right lobe. Major arteries and veins are normal in course and caliber. Supra and infraglottic airway are widely patent. Normal epiglottis. Cervical spine intact with mild/moderate C4-C7 degenerative changes and mild/moderate multilevel bilateral degenerative facet hypertrophy. TMJ bilaterally symmetric. Lung apices demonstrate small right apical calcified granuloma and old right clavicle fracture. Base of brain unremarkable. Visualized paranasal sinuses and mastoid air cells are clear. Impression: Multilevel cervical degenerative changes. Remaining CT neck without contrast exam is negative.
== END 2022-04-22 22:08 | disposition home or self-care (01) ==
LOC: ED 18:05
DX: J32.9 Chronic sinusitis, unspecified (principal); R51.9 Headache, unspecified; M54.2 Cervicalgia; Z72.0 Tobacco use; Z28.310 Unvaccinated for COVID-19
CPT/HCPCS: 70490; 96372; 99283; J0696

== ENCOUNTER 2022-06-13 00:39 | Emergency (ER) | payer OTHER ==
[2022-06-13 00:57] VITALS: BP 145/103; PULSE 98; O2SAT 96
--- NOTE | 2022-06-13 03:33 | ERPHSYRPT ---
- History of Present Illness Source: patient Exam Limitations: other (Very poor historian) Patient Subjective Stated Complaint: pt states I took meth 3 days ago and neck pain and headache Triage Nursing Assessment: pt ambulated into the er; pt is axo x4; c/o neck pain and headache; pupils 3 mm and PERRL; tenderness with palpation to neck; skin PDW; no respiratory distress present; tachycardic Physician History: 51 yo wf states that she has been using methamphetamine and complains of "head numbness" and "neck swelling" x2 hours. She denies headache/focal weakness/N/V/D/chest pain/fever/cough/coryza. Pt demands a rocephin injection because she states that she develops sinus pressure/sinusitis when she does methamphetamine. She is a incoherent historian due to substance abuse. Timing/Duration: other (2 hours) Modifying Factors: Improves With: nothing Associated Symptoms: denies symptoms Allergies/Adverse Reactions: doxycycline Allergy (Verified 06/13/22 00:49) sulfamethoxazole [From Bactrim] Allergy (Verified 06/13/22 00:49) trimethoprim [From Bactrim] Allergy (Verified 06/13/22 00:49) Home Medications: No Reportable Medications [No Reported Medications] 06/13/22 [History] Hx Tetanus, Diphtheria Vaccination/Date Given: No Hx Influenza Vaccination/Date Given: No Hx Pneumococcal Vaccination/Date Given: No Travel Risk - International Travel Have you traveled outside of the country in past 3 weeks: No - Coronavirus Screening Are you exhibiting any of the following symptoms?: No Close contact with a COVID-19 positive Pt in past 14-21 Days: No - Vaccine Status Have you recieved a Covid-19 vaccination: No - Review of Systems Constitutional: No Symptoms Eyes: No Symptoms Ears, Nose, & Throat: No Symptoms, Nose Congestion Respiratory: No Symptoms Cardiac: No Symptoms Abdominal/Gastrointestinal: No Symptoms Genitourinary Symptoms: No Symptoms Musculoskeletal: No Symptoms Skin: No Symptoms Neurological: No Symptoms, Other (Head numbness) Psychological: No Symptoms, Drug Abuse Endocrine: No Symptoms Hematologic/Lymphatic: No Symptoms Immunological/Allergic: No Symptoms - Past Medical History Pertinent Past Medical History: Yes Neurological History: No Pertinent History ENT History: No Pertinent History Cardiac History: No Pertinent History Respiratory History: No Pertinent History Endocrine Medical History: No Pertinent History Musculoskeletal History: Fractures GI Medical History: No Pertinent History History: No Pertinent History Psycho-Social History: Anxiety Female Reproductive Disorders: No Pertinent History Other Medical History: back pain - Past Surgical History Past Surgical History: Yes Neuro Surgical History: No Pertinent History Cardiac: No Pertinent History Respiratory: No Pertinent History Gastrointestinal: No Pertinent History Genitourinary: No Pertinent History Musculoskeletal: No Pertinent History Female Surgical History: Tubal Ligation - Social History Smoking Status: Current every day smoker How long have you smoked: 33 Exposure to second hand smoke: Yes Drug Use: methamphetamines Patient Lives Alone: No - Nursing Vital Signs Nursing Vital Signs: Initial Vital Signs Temperature 98.1 F 06/13/22 00:51 Pulse Rate 98 H 06/13/22 00:51 Respiratory Rate 18 06/13/22 00:51 Blood Pressure 145/103 06/13/22 00:51 O2 Sat by Pulse Oximetry 96 06/13/22 00:51 Pain Scale Pain Intensity [Head] 6 Pain Intensity 6 Hypertensive - Physical Exam General Appearance: no apparent distress Eye Exam: PERRL/EOMI, eyes nml inspection Ears, Nose, Throat Exam: normal ENT inspection, TMs normal, pharynx normal, moist mucous membranes Neck Exam: normal inspection, non-tender, supple, full range of motion, No meningismus, No mass, No Brudzinski, No Kernig's Respiratory Exam: normal breath sounds, lungs clear, airway intact Cardiovascular Exam: regular rate/rhythm, normal heart sounds, normal peripheral pulses, capillary refill <2 sec, No murmur Gastrointestinal/Abdomen Exam: soft, normal bowel sounds, No tenderness Back Exam: normal inspection, normal range of motion, No CVA tenderness, No vertebral tenderness Extremity Exam: normal inspection, normal range of motion Neurologic Exam: alert, operating engineer II-XII nml as tested, uncooperative Skin Exam: normal color, warm, dry Lymphatic Exam: No adenopathy SpO2 Interpretation: normal SpO2: 96 O2 Delivery: Room Air - Course Nursing assessment & vital signs reviewed: Yes Ordered Tests: Active Orders 24 hr Category Date Time Status AMA [Release AMA] OM.NOW Care 06/13/22 01:24 Completed - Progress Progress Note: 06/13/22 03:[address] Pt was [address] that [address] of head would be ordered to rule out intra-cranial bleed/CVA due to elevated blood pressure and head numbness. She refused CT of head and demanded IM Rocephin for her methamphetamine induced sinusitis. Pt was told that she had no indication for IM antibiotics, and she stated that she would report me for failing to give her antibiotics. She then demanded lab work which I told her I would be happy to order. Pt then decided that she did not want lab work and only wanted IM Rocephin. She then became upset and eloped from the ER stating that she was going to report me because she was not given IM Rocephin. - Departure Departure Disposition: AMA Clinical Impression: Methamphetamine abuse Condition: Stable Critical Care Time: No Referrals: BRANDEN WILL [Primary Care Provider] - Follow up/PCP as directed
== END 2022-06-13 01:10 | disposition left against medical advice (07) ==
LOC: ED 00:39
DX: F15.10 Other stimulant abuse, uncomplicated (principal); R22.1 Localized swelling, mass and lump, neck; R20.2 Paresthesia of skin; Z28.310 Unvaccinated for COVID-19; Z72.0 Tobacco use
CPT/HCPCS: 99281

== ENCOUNTER 2022-06-13 16:39 | Emergency (ER) | payer OTHER ==
[2022-06-13] MEDS ORDERED: Kenalog-40 IM ONE (17:12)
[2022-06-13] MEDS ORDERED: Kenalog-40 ONE (17:13)
--- NOTE | 2022-06-13 17:27 | ERPHSYRPT ---
- History of Present Illness Time Seen by Provider: 06/13/22 17:12 Source: patient Exam Limitations: no limitations Patient Subjective Stated Complaint: Patient c/o sinus infection. She states she has nasal congestion, headache, and neck pain from a sinus infection. States, "I don't do drugs anymore but I have meth festering in there causing an infection from before." Triage Nursing Assessment: Patient ambulated back to ED with a slow, slumped gait. No SOB. She is alert and oriented. Patient refusing to allow staff to take an oral temperature; temp obtained by temp artery scan. Voice sounds gruff, hoarse; patient denies sore throat. No nasal drainage. No cough noted during assessment. Physician History: 51 years old female with history of substance abuse presented in the ER with chief complaint of nasal/sinus congestion/pain for the last few days, has been evaluated outpatient, has taken Omnicef with no significant relief. Patient was seen in the ER yesterday but left AMA. Patient is adamant that she has sinusitis and needs a shot of Rocephin. Patient reports having similar symptoms in the past after using methamphetamine although she denies recent use of meth. No difficulty breathing but soreness in the sinuses, throat and neck without any difficulty movements of neck. No vomiting or diarrhea. Patient reports around bridge of nose she has numbness and dryness which does not go away. She has used [id number] stuff as well with no significant relief. Timing/Duration: gradual onset, weeks (1) Severity: moderate ENT Location: throat, facial Prearrival Treatment: prescription meds Associated Symptoms: facial pain/swelling, nasal congestion/drainage, neck pain, sinus infection, sore throat, No ear pain (L), No cough, No fever, No change in hearing, No ear drainage Allergies/Adverse Reactions: doxycycline Allergy (Verified 06/13/22 16:44) sulfamethoxazole [From Bactrim] Allergy (Verified 06/13/22 16:44) trimethoprim [From Bactrim] Allergy (Verified 06/13/22 16:44) Hx Tetanus, Diphtheria Vaccination/Date Given: Yes Hx Influenza Vaccination/Date Given: No Hx Pneumococcal Vaccination/Date Given: No Immunizations Up to Date: Yes Travel Risk - International Travel Have you traveled outside of the country in past 3 weeks: No - Coronavirus Screening Are you exhibiting any of the following symptoms?: Yes Symptoms: Cough: New Onset, Headaches/Body Aches/Fatigue Close contact with a COVID-19 positive Pt in past 14-21 Days: No - Vaccine Status Have you recieved a Covid-19 vaccination: No - Review of Systems Constitutional: No Symptoms Eyes: No Symptoms Ears, Nose, & Throat: Nose Congestion Respiratory: Cough Cardiac: No Symptoms Abdominal/Gastrointestinal: No Symptoms Genitourinary Symptoms: No Symptoms Musculoskeletal: No Symptoms Neurological: No Symptoms Endocrine: No Symptoms Immunological/Allergic: No Symptoms - Past Medical History Pertinent Past Medical History: Yes Neurological History: No Pertinent History ENT History: No Pertinent History Cardiac History: No Pertinent History Respiratory History: No Pertinent History Endocrine Medical History: No Pertinent History Musculoskeletal History: Fractures GI Medical History: No Pertinent History History: No Pertinent History Psycho-Social History: Anxiety Female Reproductive Disorders: No Pertinent History Other Medical History: back pain - Past Surgical History Past Surgical History: Yes Neuro Surgical History: No Pertinent History Cardiac: No Pertinent History Respiratory: No Pertinent History Gastrointestinal: No Pertinent History Genitourinary: No Pertinent History Musculoskeletal: No Pertinent History Female Surgical History: Tubal Ligation - Social History Smoking Status: Current every day smoker How long have you smoked: 33 Exposure to second hand smoke: Yes Drug Use: none Patient Lives Alone: No - Nursing Vital Signs Nursing Vital Signs: Initial Vital Signs Temperature 98.3 F 06/13/22 16:46 Pulse Rate 115 H 06/13/22 16:46 Respiratory Rate 18 06/13/22 16:46 Blood Pressure 150/86 06/13/22 16:46 O2 Sat by Pulse Oximetry 99 06/13/22 16:46 Pain Scale Pain Intensity 9 - Physical Exam General Appearance: no apparent distress, alert, anxiety Eye Exam: bilateral eye: normal inspection, PERRL, EOMI Ear Exam: bilateral ear: auricle normal, canal normal, TM normal Nasal Exam: sinus tenderness (Minimal maxillary sinus tenderness. Mild mucosal injection.) Throat Exam: normal, moist mucus membranes Neck Exam: normal inspection, non-tender, supple, full range of motion, No limited range of motion Cardiovascular/Respiratory Exam: chest non-tender, normal breath sounds, tachycardia Neurologic Exam: alert, oriented x 3, cooperative, pearl hand II-XII nml as tested, nml cerebellar function, nml station & gait, sensation nml, No normal mood/affect, No motor deficits Skin Exam: normal color SpO2 Interpretation: normal SpO2: 99 O2 Delivery: Room Air Ordered Tests: Medication Summary Discontinued Medications Generic Name Dose Route Start Last Admin Trade Name Dottie PRN Reason Stop Dose Admin Triamcinolone Acetonide 40 mg 06/13/22 17:12 06/13/22 17:19 Triamcinolone Acetonide 40 Mg/Ml Ml IM 06/13/22 17:13 40 mg 1XONLY ONE Administration Triamcinolone Acetonide Confirm 06/13/22 17:13 Triamcinolone Acetonide 40 Mg/Ml Ml Administered 06/13/22 17:14 Dose 40 mg .ROUTE .STK-MED ONE - Progress Progress: unchanged Progress Note: 06/13/22 17:30 51 years old is evaluated for sinus congestion for the last few days with outpatient antibiotics without any relief. Patient is adamant about receiving Rocephin shot. She has minimal sinus tenderness. She has nonfocal neuro exam otherwise. She is given a shot of Kenalog and will continue with steroids to go home and outpatient ENT follow-up. I do not think patient needs antibiotics. Discussed signs symptoms of worsening needing return to ER which she seems understanding. Stable for discharge. Counseled pt/family regarding: diagnosis, need for follow-up, smoking cessation - Departure Departure Disposition: Home Clinical Impression: Sinusitis Condition: Stable Critical Care Time: No Referrals: BRANDEN WILL [Primary Care Provider] - Follow up/PCP as directed (1-2 days for reevaluation) Instructions: Sinusitis, Adult (DC) Additional Instructions: Do not smoke or use any drugs. Follow-up with primary care for reevaluation. Return to ER for any worsening. Prescriptions: Prednisone 20 mg [Deltasone 20 mg] 60 mg PO DAILY 5 Days #15 tablet Fluticasone Propionate [Flonase NASAL] 16 gm NS DAILY 15 Days #1 inh
[2022-06-13 17:45] VITALS: BP 124/94; PULSE 102; O2SAT 96
== END 2022-06-13 17:45 | disposition home or self-care (01) ==
LOC: ED 16:39
DX: J32.9 Chronic sinusitis, unspecified (principal); R09.81 Nasal congestion; Z79.52 Long term (current) use of systemic steroids; R51.9 Headache, unspecified; Z28.310 Unvaccinated for COVID-19; Z72.0 Tobacco use
CPT/HCPCS: 96372; 99282; J3301

== ENCOUNTER 2022-12-01 19:55 | Emergency (ER) | payer OTHER ==
[2022-12-01 20:13] VITALS: BP 155/99; PULSE 102; O2SAT 97
[2022-12-01] MEDS ORDERED: Sterile H2O 10 ml IJ ONE (20:30)
[2022-12-01] MEDS ORDERED: solu-MEDROL 125 MG, Sterile H2O 10 ml 2 ML IM ONE ×2 (20:30)
[2022-12-01] MEDS ORDERED: solu-MEDROL ONE (20:30)
--- NOTE | 2022-12-01 20:43 | ERPHSYRPT ---
- History of Present Illness Time Seen by Provider: 12/01/22 19:59 Source: patient Exam Limitations: no limitations Patient Subjective Stated Complaint: pt states that a week ago she started having sinus congestion and pressure that led to headache, neck pain, and swelling and pressure to face. was seen at [facility] and prescribed zpack which she took in it's entirety and last 3 days her symptoms have increased in intensity. Triage Nursing Assessment: pt ambulated to room 8 independently with slow steady gait after standing on scales for weight acquisition. pt is alert and oriented times three, able to speak in complete sentences, able to move all extremities, and with resp even and unlabored. slight facial/ eye swelling noted, no eye drainage noted although pt reports eyes being crusted over when she wakes up. Physician History: 52-year-old female presented in the ER with 2 weeks history of sinus congestion pressure. She was seen at [facility], has finished Z-Santo with no significant relief and for last 3 days increasing pain and pressure/swelling. No fever or chills reported. No sore throat. No difficulty breathing. Does report frontal headache. No numbness tingling or focal weakness. No visual disturbance. Timing/Duration: gradual onset, weeks (2) Severity: moderate ENT Location: nose, facial Prearrival Treatment: prescription meds Associated Symptoms: facial pain/swelling, nasal congestion/drainage, sinus infection, No cough, No fever Allergies/Adverse Reactions: doxycycline Allergy (Verified 12/01/22 20:01) sulfamethoxazole [From Bactrim] Allergy (Verified 12/01/22 20:01) trimethoprim [From Bactrim] Allergy (Verified 12/01/22 20:01) Hx Tetanus, Diphtheria Vaccination/Date Given: Yes Hx Influenza Vaccination/Date Given: No Hx Pneumococcal Vaccination/Date Given: No Immunizations Up to Date: Yes Travel Risk - International Travel Have you traveled outside of the country in past 3 weeks: No - Coronavirus Screening Are you exhibiting any of the following symptoms?: No Close contact with a COVID-19 positive Pt in past 14-21 Days: No - Vaccine Status Have you recieved a Covid-19 vaccination: No - Review of Systems Constitutional: No Symptoms Eyes: No Symptoms Ears, Nose, & Throat: Nose Congestion, Sinus Drainage Respiratory: No Symptoms Cardiac: No Symptoms Musculoskeletal: No Symptoms Skin: No Symptoms Neurological: No Symptoms Psychological: Anxiety Hematologic/Lymphatic: No Symptoms - Past Medical History Pertinent Past Medical History: Yes Neurological History: No Pertinent History ENT History: No Pertinent History Cardiac History: No Pertinent History Respiratory History: No Pertinent History Endocrine Medical History: No Pertinent History Musculoskeletal History: Fractures GI Medical History: No Pertinent History History: No Pertinent History Psycho-Social History: Anxiety Female Reproductive Disorders: No Pertinent History Other Medical History: back pain - Past Surgical History Past Surgical History: Yes Neuro Surgical History: No Pertinent History Cardiac: No Pertinent History Respiratory: No Pertinent History Gastrointestinal: No Pertinent History Genitourinary: No Pertinent History Musculoskeletal: No Pertinent History Female Surgical History: Tubal Ligation - Social History Smoking Status: Current every day smoker How long have you smoked: 33 Exposure to second hand smoke: Yes Drug Use: none Patient Lives Alone: No - Nursing Vital Signs Nursing Vital Signs: Initial Vital Signs Temperature 97.1 F 12/01/22 20:03 Pulse Rate 102 H 12/01/22 20:03 Respiratory Rate 20 12/01/22 20:03 Blood Pressure 155/99 12/01/22 20:03 O2 Sat by Pulse Oximetry 97 12/01/22 20:03 Pain Scale Pain Intensity 8 - Physical Exam General Appearance: no apparent distress, alert Eye Exam: bilateral eye: normal inspection, PERRL, EOMI Ear Exam: bilateral ear: auricle normal, canal normal, TM normal Nasal Exam: sinus tenderness (Mild tenderness frontal and maxillary sinus area. Nasal injection.) Throat Exam: normal, moist mucus membranes, pharynx swelling Neck Exam: normal inspection, non-tender, supple, full range of motion, No meningismus Cardiovascular/Respiratory Exam: normal breath sounds, regular rate/rhythm Neurologic Exam: alert, oriented x 3, cooperative, ecologist technician II-XII nml as tested, nml cerebellar function, nml station & gait, sensation nml, No motor deficits Skin Exam: normal color SpO2 Interpretation: normal SpO2: 97 O2 Delivery: Room Air Ordered Tests: Medication Summary Discontinued Medications Generic Name Dose Route Start Last Admin Trade Name Freq PRN Reason Stop Dose Admin Methylprednisolone Sodium 0 mg 12/01/22 20:30 12/01/22 20:32 Succinate 125 mg/ Sterile IM 12/01/22 20:31 125 mg Water 2 ml STAT ONE Administration Methylprednisolone Sodium Succinate Confirm 12/01/22 20:30 Methylprednis Sod Succ 125 Mg/2 Ml Vial Administered 12/01/22 20:31 Dose 125 mg .ROUTE .STK-MED ONE Sterile Water Confirm 12/01/22 20:30 Water For Injection,Sterile 10 Ml Vial Administered 12/01/22 20:31 Dose 10 ml IJ .STK-MED ONE - Progress Progress: unchanged Progress Note: 12/01/22 20:41 52-year-old female presented in the ER with 2 weeks history of sinus congestion pressure. She was seen at [facility], has finished Z-Santo with no significant relief and for last 3 days increasing pain and pressure/swelling. No fever or chills reported. No sore throat. No difficulty breathing. Does report frontal headache. No numbness tingling or focal weakness. No visual disturbance. I do not think patient needs antibiotics. I have given a shot of Solu-Medrol in here and will continue with prednisone to go home. Outpatient follow-up recommended. Discussed signs symptoms of worsening needing return to ER which she seems understanding. Stable for discharge. Counseled pt/family regarding: diagnosis, need for follow-up Medical Desision Making - Risk of complications The pt has a mod risk of morbidity or mortality based on: Need for prescription drug management - Departure Departure Disposition: Home Clinical Impression: Sinusitis Condition: Stable Critical Care Time: No Referrals: BRANDEN WILL [Primary Care Provider] - Follow up with PCP 1 day Instructions: Sinusitis, Adult (DC) Additional Instructions: Take Tylenol as needed. Continue with Flonase. Follow-up with primary care for reevaluation. Return to ER for any worsening. Prescriptions: Prednisone 20 mg [Deltasone 20 mg] 60 mg PO DAILY 5 Days #15 tablet
== END 2022-12-01 20:49 | disposition home or self-care (01) ==
LOC: ED 19:55
DX: J32.9 Chronic sinusitis, unspecified (principal); R51.9 Headache, unspecified; Z79.52 Long term (current) use of systemic steroids; Z28.310 Unvaccinated for COVID-19; Z72.0 Tobacco use
CPT/HCPCS: 96372; 99282; J2930

== ENCOUNTER 2023-08-28 20:01 | Emergency (ER) | payer OTHER ==
[2023-08-28 20:22] VITALS: TEMP 97.7
[2023-08-28] MEDS ORDERED: DELTASONE 20 MG ONE (20:56)
[2023-08-28] MEDS ORDERED: TORAdol 30 mg Injection ONE (20:56)
[2023-08-28] MEDS: DELTASONE 20 MG PO ONE (20:58)
[2023-08-28] MEDS: TORAdol 30 mg Injection IM ONE (20:59)
--- NOTE | 2023-08-28 21:19 | ERPHSYRPT ---
- History of Present Illness Time Seen by Provider: 08/28/23 20:26 Source: patient Exam Limitations: no limitations Patient Subjective Stated Complaint: head pressure and facial pressure x2 weeks, pt states "I get sinus infections a lot." Triage Nursing Assessment: pt ambulatory to bed by self with steady gait, pt alert and oriented x3, skin pwd, pt c/o head and facial pressure x2 weeks, pt has hx frequent sinus infections and states "I think I have another one." pt has used allergy medication and nasal spray with no relief. Physician History: 53 years old female with history of recurrent sinusitis presented to the ER with 2 days history of increased sinus pressure and frontal headache. Patient reports using her routine allergy medication with no significant relief. Thinks it is because of change in weather she is having more congestion. Denies any fever or chills. No neck pain or difficulty movements of neck. No numbness tingling or focal weakness. Patient reports similar symptoms multiple times in the past and thinks she has sinusitis and needs a medication for it. Allergies/Adverse Reactions: doxycycline Allergy (Verified 08/28/23 20:14) sulfamethoxazole [From Bactrim] Allergy (Verified 08/28/23 20:14) trimethoprim [From Bactrim] Allergy (Verified 08/28/23 20:14) Hx Tetanus, Diphtheria Vaccination/Date Given: Yes Hx Influenza Vaccination/Date Given: No Hx Pneumococcal Vaccination/Date Given: No Travel Risk - International Travel Have you traveled outside of the country in past 3 weeks: No - Emerging Infectious Disease Are you exhibiting symptoms associated with any current EIDs: Yes Symptoms: Headaches/Body Aches/ - Review of Systems Constitutional: No Symptoms Ears, Nose, & Throat: Nose Congestion, Sinus Drainage Respiratory: No Symptoms Cardiac: No Symptoms Abdominal/Gastrointestinal: No Symptoms Musculoskeletal: No Symptoms Skin: No Symptoms Neurological: No Symptoms - Past Medical History Pertinent Past Medical History: Yes Neurological History: Migraines ENT History: No Pertinent History Cardiac History: No Pertinent History Respiratory History: No Pertinent History Endocrine Medical History: No Pertinent History Musculoskeletal History: Fractures GI Medical History: No Pertinent History History: No Pertinent History Psycho-Social History: Anxiety Female Reproductive Disorders: No Pertinent History Other Medical History: back pain - Past Surgical History Past Surgical History: Yes Neuro Surgical History: No Pertinent History Cardiac: No Pertinent History Respiratory: No Pertinent History Gastrointestinal: No Pertinent History Genitourinary: No Pertinent History Musculoskeletal: No Pertinent History Female Surgical History: Tubal Ligation - Female History Hx Last Menstrual Period: post menopause Hx Now: No - Social History Smoking Status: Former smoker How long have you smoked: 33 Exposure to second hand smoke: Yes Drug Use: none Patient Lives Alone: No - Nursing Vital Signs Nursing Vital Signs: Initial Vital Signs Temperature 97.7 F 08/28/23 20:15 Pulse Rate 108 H 08/28/23 20:15 Respiratory Rate 20 08/28/23 20:15 Blood Pressure 197/91 08/28/23 20:15 O2 Sat by Pulse Oximetry 96 08/28/23 20:15 Pain Scale Pain Intensity 7 - Physical Exam General Appearance: no apparent distress, alert Eye Exam: bilateral eye: normal inspection, PERRL, EOMI Ear Exam: bilateral ear: auricle normal, canal normal, TM normal Nasal Exam: normal inspection, sinus tenderness (Maxillary and frontal), No discharge Throat Exam: normal, pharynx normal, moist mucus membranes, No dental tenderness Neck Exam: normal inspection, non-tender, supple, full range of motion Cardiovascular/Respiratory Exam: normal breath sounds, regular rate/rhythm Neurologic Exam: alert, oriented x 3, cooperative, work order clerk II-XII nml as tested, normal mood/affect, nml cerebellar function, nml station & gait, sensation nml, No motor deficits Skin Exam: normal color SpO2 Interpretation: normal SpO2: 99 O2 Delivery: Room Air Ordered Tests: Medication Summary Discontinued Medications Generic Name Dose Route Start Last Admin Trade Name Serjioq PRN Reason Stop Dose Admin Ketorolac Tromethamine 30 mg 08/28/23 20:48 08/28/23 20:59 Ketorolac Tromethamine 30 Mg/Ml Inj IM 08/28/23 20:49 30 mg STAT ONE Administration Ketorolac Tromethamine Confirm 08/28/23 20:56 Ketorolac Tromethamine 30 Mg/Ml Inj Administered 08/28/23 20:57 Dose 30 mg .ROUTE .STK-MED ONE Prednisone 60 mg 08/28/23 20:48 08/28/23 20:58 Prednisone 20 Mg Tablet PO 08/28/23 20:49 60 mg STAT ONE Administration Prednisone Confirm 08/28/23 20:56 Prednisone 20 Mg Tablet Administered 08/28/23 20:57 Dose 60 mg .ROUTE .STK-MED ONE - Progress Progress: pain not gone completely Progress Note: 08/28/23 21:17 53 years old is evaluated for sinus pressure and frontal headache. Patient has tenderness in the maxillary and frontal sinus area. I have given her Toradol for symptomatic relief and started on prednisone. Patient is advised to continue with antihistamine. Do not think patient needs antibiotics. Discussed signs symptoms of worsening needing return to ER which she seems understanding. Stable for discharge. Counseled pt/family regarding: diagnosis, need for follow-up Medical Desision Making - Diagnostic Testing Diagnostic test were ordered, analyzed, and reviewed by me: No - Risk of complications The pt has a mod risk of morbidity or mortality based on: Need for prescription drug management - Departure Departure Disposition: Home Clinical Impression: Sinus pressure, Sinusitis Condition: Stable Critical Care Time: No Referrals: STEFANI KING MD [Primary Care Provider] - Follow up with PCP 1 day Instructions: Sinusitis, Adult (DC), Headache, Adult (DC) Additional Instructions: Continue with your current allergy medications. Take Tylenol/ibuprofen as needed for pain. Follow-up with primary care for reevaluation. Return to ER for worsening sinus pressure, headache, feeling dizzy lightheaded, numbness tingling or focal weakness. Prescriptions: Prednisone 20 mg [Deltasone 20 mg] 60 mg PO DAILY 5 Days #15 tablet
[2023-08-28 21:28] VITALS: BP 165/74; PULSE 81; RESP 18; O2SAT 98
== END 2023-08-28 21:28 | disposition home or self-care (01) ==
LOC: ED 20:01
DX: J32.9 Chronic sinusitis, unspecified (principal); R51.9 Headache, unspecified; Z79.52 Long term (current) use of systemic steroids
CPT/HCPCS: 96372; 99283; J1885; A9270-GY

== ENCOUNTER 2023-12-16 01:58 | Emergency (ER) | payer OTHER ==
[2023-12-16 02:14] VITALS: TEMP 97.6
--- NOTE | 2023-12-16 02:52 | ERPHSYRPT ---
- History of Present Illness Time Seen by Provider: 12/16/23 02:20 Source: patient Exam Limitations: no limitations Patient Subjective Stated Complaint: headache, earache, mouth is raw, hurt all over Triage Nursing Assessment: Pt ambulated into ER without diff, Pt alert and oriented x4. Pt c/o headache, earache, pain in the mouth, states, "I think it's sinusitis". Pt denies any dizziness, loc, nausea or vomiting. Pt states, "I hurt all over". Physician History: This is a 53-year-old obese white female patient who presents by private vehicle because of sinus pressure causing a headache and earache. Patient denies head trauma. Patient denies dizziness. Patient denies nausea vomiting and denies diarrhea. Patient does not have chest pain. She does not have shortness of breath. Patient denies fevers. Patient has history of recurrent headaches, patient has a history of anxiety and recurrent sinusitis. Timing/Duration: gradual onset, days (Couple of days) Severity: mild (To moderate) ENT Location: nose (Sinus pressure) Associated Symptoms: ear pain (R), ear pain (L), sinus infection Allergies/Adverse Reactions: doxycycline Allergy (Verified 12/16/23 02:21) sulfamethoxazole [From Bactrim] Allergy (Verified 12/16/23 02:21) trimethoprim [From Bactrim] Allergy (Verified 12/16/23 02:21) Hx Tetanus, Diphtheria Vaccination/Date Given: Yes Hx Influenza Vaccination/Date Given: No Hx Pneumococcal Vaccination/Date Given: No Travel Risk - International Travel Have you traveled outside of the country in past 3 weeks: No - Emerging Infectious Disease Are you exhibiting symptoms associated with any current EIDs: Yes Symptoms: Headaches/Body Aches/ - Review of Systems Constitutional: No Symptoms Eyes: No Symptoms Ears, Nose, & Throat: Ear Pain (Bilateral earaches), Other (Sinus pressure) Respiratory: No Symptoms Cardiac: No Symptoms Abdominal/Gastrointestinal: No Symptoms Genitourinary Symptoms: No Symptoms Musculoskeletal: Arthralgias, Myalgias Skin: No Symptoms Neurological: No Symptoms Psychological: No Symptoms Endocrine: No Symptoms Hematologic/Lymphatic: No Symptoms Immunological/Allergic: No Symptoms All Other Systems: Reviewed and Negative - Past Medical History Pertinent Past Medical History: Yes Neurological History: Migraines ENT History: No Pertinent History Cardiac History: No Pertinent History Respiratory History: No Pertinent History Endocrine Medical History: No Pertinent History Musculoskeletal History: Fractures GI Medical History: No Pertinent History History: No Pertinent History Psycho-Social History: Anxiety Female Reproductive Disorders: No Pertinent History Other Medical History: back pain, sinusitis - Past Surgical History Past Surgical History: Yes Neuro Surgical History: No Pertinent History Cardiac: No Pertinent History Respiratory: No Pertinent History Gastrointestinal: No Pertinent History Genitourinary: No Pertinent History Musculoskeletal: Orthopedic Surgery Female Surgical History: Tubal Ligation - Female History Hx Now: No - Social History Smoking Status: Current every day smoker How long have you smoked: 35 yrs Exposure to second hand smoke: No Drug Use: none Patient Lives Alone: No - Social Determinants of Health Will the patient participate in the screening: Yes Do you worry about a steady place to live?: No Do you have any problems with any of the following?: No known problems In the past 12 months,have you had to go without utilities?: No Transportation Issues: No Has anyone in your support network made you feel unsafe?: No Have you or anyone in your house had to go without enough: No - Nursing Vital Signs Nursing Vital Signs: Initial Vital Signs Blood Pressure 129/107 12/16/23 02:12 O2 Sat by Pulse Oximetry 96 12/16/23 02:12 Pain Scale Pain Intensity 9 - Physical Exam General Appearance: no apparent distress, alert, anxiety, obese Eye Exam: bilateral eye: normal inspection, PERRL, EOMI Ear Exam: bilateral ear: auricle normal, canal normal, TM normal Nasal Exam: normal inspection, sinus tenderness Throat Exam: normal, pharynx normal, moist mucus membranes (Patient is edentulous) Neck Exam: normal inspection, non-tender, supple, full range of motion Cardiovascular/Respiratory Exam: chest non-tender, no respiratory distress Abdominal Exam: non-tender Neurologic Exam: alert, oriented x 3, cooperative, car attendant II-XII nml as tested, nml cerebellar function, nml station & gait, sensation nml Skin Exam: normal color, warm, dry SpO2 Interpretation: normal SpO2: 97 O2 Delivery: Room Air - Course Nursing assessment & vital signs reviewed: Yes Ordered Tests: Active Orders 24 hr Category Date Time Status UA W/RFX UR CULTURE Stat Lab 12/16/23 02:23 Completed Medication Summary Discontinued Medications Generic Name Dose Route Start Last Admin Trade Name Freq PRN Reason Stop Dose Admin Ceftriaxone Sodium 1,000 mg 12/16/23 02:45 12/16/23 03:04 Ceftriaxone Sodium 1000 Mg Inj Vial IM 12/16/23 02:46 1,000 mg STAT ONE Administration Ceftriaxone Sodium Confirm 12/16/23 02:57 Ceftriaxone Sodium 1000 Mg Inj Vial Administered 12/16/23 02:58 Dose 1,000 mg .ROUTE .STK-MED ONE Methylprednisolone Sodium 0 mg 12/16/23 02:45 12/16/23 03:04 Succinate 125 mg/ Sterile IM 12/16/23 02:46 125 mg Water 2 ml STAT ONE Administration Lidocaine HCl Confirm 12/16/23 02:57 Lidocaine Hcl 1% 20 Ml Mdv 20 Ml Ml Administered 12/16/23 02:58 Dose 2 ml .ROUTE .STK-MED ONE Methylprednisolone Sodium Succinate Confirm 12/16/23 02:57 Methylprednis Sod Succ 125 Mg/2 Ml Vial Administered 12/16/23 02:58 Dose 125 mg .ROUTE .STK-MED ONE Sterile Water Confirm 12/16/23 02:57 Water For Injection,Sterile 10 Ml Vial Administered 12/16/23 02:58 Dose 10 ml IJ .STK-MED ONE Lab/Rad Data: Laboratory Results 12/16/23 12/16/23 12/16/23 Range/Units 02:25 02:25 02:23 Urine Color Yellow (Yellow) Urine Appearance Clear (Clear) Urine pH 6.5 (4.6-8.0) Ur Specific Honor 1.010 (1.005-1.030) Urine Protein Negative (Negative) Urine Glucose (UA) Negative (Negative) mg/dL Urine Ketones Negative (Negative) Urine Blood Negative (Negative) Urine Nitrite Negative (Negative) Urine Bilirubin Negative (Negative) Urine Urobilinogen 0.2 (0.2) mg/dL Ur Leukocyte Esterase Negative (Negative) U Hyaline Cast (Auto) NONE SEEN (0-2) /LPF Urine Microscopic RBC 0-2 (0-5) /HPF Urine Microscopic WBC 0-2 (0-5) /HPF Ur Epithelial Cells None Seen (None Seen) /HPF Urine Bacteria None Seen (None Seen) /HPF Urine Culture Reflexed NO (NO) Influenza Type A Ag NEGATIVE (NEGATIVE) Influenza Type B Ag NEGATIVE (NEGATIVE) RSV (PCR) NEGATIVE (NEGATIVE) SARS-CoV-2 (PCR) NEGATIVE (NEGATIVE) Group A Strep Antibody NOT DETECTED (NEGATIVE) - Progress Progress: improved, re-examined Progress Note: 12/16/23 02:51 My medical decision making and the assignment of low complexity to this patient's medical issue today is based on review of the patient's past medical history, review of the patient's medication list, review the patient drug allergy list, history of present illness and physical findings on examination. The workup in this patient viral swabs, strep test and urinalysis. Differential diagnosis includes but is not limited to sinusitis, strep pharyngitis, viral illness 12/16/23 03:52 I interpreted the patient's laboratory data results. There are no acute emergent medical issue based on the laboratory data results. Counseled pt/family regarding: lab results, diagnosis, need for follow-up Medical Desision Making - Diagnostic Testing Diagnostic test were ordered, analyzed, and reviewed by me: Yes - Risk of complications The pt has a mod risk of morbidity or mortality based on: Need for prescription drug management - Departure Departure Disposition: Home Clinical Impression: Sinusitis Condition: Stable Critical Care Time: No Referrals: STEFANI KING MD [Primary Care Provider] - Follow up/PCP as directed Additional Instructions: Drink plenty of fluids. Take your medication as prescribed. Follow-up with your primary care provider today, by phone, to make arrangements for follow-up visit to be seen in the next 3 to 5 days. Prescriptions: Amoxicillin 500 mg Cap [Amoxil 500 mg] 500 mg PO TID #30 cap Prednisone 10 mg [Deltasone 10 mg] 10 mg PO TID #12 tablet
[2023-12-16] MEDS ORDERED: XYLOCAINE 1% HCL 20 ML MDV ONE (02:57)
[2023-12-16] MEDS ORDERED: Rocephin 1000 MG INJ ONE (02:57)
[2023-12-16] MEDS ORDERED: solu-MEDROL ONE (02:57)
[2023-12-16] MEDS ORDERED: Sterile H2O 10 ml IJ ONE (02:57)
[2023-12-16] MEDS: solu-MEDROL 125 MG, Sterile H2O 10 ml 2 ML IM ONE (03:04)
[2023-12-16] MEDS: Rocephin 1000 MG INJ IM ONE (03:04)
[2023-12-16 03:16] LABS: Appearance Clear (Clear); Bacteria None Seen /HPF (None Seen); Bilirubin Negative (Negative); Blood Negative (Negative); Epithelial Cells None Seen /HPF (None Seen); Glucose, Urine Negative (Negative); Hyaline Casts NONE SEEN /LPF (0-2); Ketones Negative (Negative); Leukocyte Esterase Negative (Negative); Nitrite Negative (Negative); Ph 6.5 (4.6-8.0); Protein,Urine Dip Negative (Negative); RBC 0-2 /HPF (0-5); Urobilinogen 0.2 mg/dL (0.2); WBC 0-2 /HPF (0-5)
[2023-12-16 03:17] LABS: ADD URINE CULTURE? NO (NO)
[2023-12-16 03:19] VITALS: RESP 18
[2023-12-16 03:22] LABS: INFLUENZA A NEGATIVE (NEGATIVE); INFLUENZA B NEGATIVE (NEGATIVE); RESPIRATORY SYNCTIAL VIRUS NEGATIVE (NEGATIVE); SARS-CoV-2 Xpert Express NEGATIVE (NEGATIVE)
[2023-12-16 03:54] VITALS: O2SAT 97
[2023-12-16 04:06] VITALS: BP 128/51; PULSE 97
== END 2023-12-16 04:08 | disposition home or self-care (01) ==
LOC: ED 01:58
DX: J32.9 Chronic sinusitis, unspecified (principal); R51.9 Headache, unspecified; H92.03 Otalgia, bilateral; Z79.52 Long term (current) use of systemic steroids; Z79.899 Other long term (current) drug therapy; Z72.0 Tobacco use
CPT/HCPCS: 0241U; 81001; 87651; 96372; 99283; J0696; J2919

== ENCOUNTER 2024-08-20 21:23 | Emergency (ER) | payer OTHER ==
--- NOTE | 2024-08-20 21:25 | ERPHSYRPT ---
- History of Present Illness Time Seen by Provider: 08/20/24 21:25 Source: patient Exam Limitations: no limitations Timing/Duration: gradual onset Severity: mild ENT Location: throat, facial (Sinus pressure) Prearrival Treatment: no prearrival treatment Modifying Factors: Improves With: activity Associated Symptoms: nasal congestion/drainage, sore throat (Right side), No tooth pain Allergies/Adverse Reactions: doxycycline Allergy (Verified 08/20/24 21:50) sulfamethoxazole [From Bactrim] Allergy (Verified 08/20/24 21:50) trimethoprim [From Bactrim] Allergy (Verified 08/20/24 21:50) Hx Tetanus, Diphtheria Vaccination/Date Given: Yes Hx Influenza Vaccination/Date Given: No Hx Pneumococcal Vaccination/Date Given: No Travel Risk - International Travel Have you traveled outside of the country in past 3 weeks: No - Emerging Infectious Disease Are you exhibiting symptoms associated with any current EIDs: Yes Symptoms: Headaches/Body Aches/ - Review of Systems Constitutional: No Symptoms Eyes: No Symptoms Ears, Nose, & Throat: Nose Congestion, Throat Pain (Painful swallowing on the right side) Respiratory: No Symptoms Cardiac: No Symptoms Abdominal/Gastrointestinal: No Symptoms Genitourinary Symptoms: No Symptoms Musculoskeletal: No Symptoms Skin: No Symptoms Neurological: No Symptoms Psychological: No Symptoms Endocrine: No Symptoms Hematologic/Lymphatic: No Symptoms Immunological/Allergic: No Symptoms All Other Systems: Reviewed and Negative - Past Medical History Pertinent Past Medical History: Yes Neurological History: Migraines ENT History: No Pertinent History Cardiac History: No Pertinent History Respiratory History: No Pertinent History Endocrine Medical History: No Pertinent History Musculoskeletal History: Fractures GI Medical History: No Pertinent History History: No Pertinent History Psycho-Social History: Anxiety Female Reproductive Disorders: No Pertinent History Other Medical History: back pain, sinusitis - Past Surgical History Past Surgical History: Yes Neuro Surgical History: No Pertinent History Cardiac: No Pertinent History Respiratory: No Pertinent History Gastrointestinal: No Pertinent History Genitourinary: No Pertinent History Musculoskeletal: Orthopedic Surgery Female Surgical History: Tubal Ligation - Social History Smoking Status: Current every day smoker How long have you smoked: 35 yrs Exposure to second hand smoke: No Drug Use: none Patient Lives Alone: No - Social Determinants of Health Will the patient participate in the screening: Yes Do you worry about a steady place to live?: No In the past 12 months,have you had to go without utilities?: No Transportation Issues: No Has anyone in your support network made you feel unsafe?: No Have you or anyone in your house had to go w/o enough food: No - Nursing Vital Signs Nursing Vital Signs: Initial Vital Signs Temperature 98.0 F 08/20/24 21:24 Pulse Rate 116 H 08/20/24 21:24 Respiratory Rate 20 08/20/24 21:24 Blood Pressure 120/94 08/20/24 21:24 O2 Sat by Pulse Oximetry 96 08/20/24 21:24 Pain Scale Pain Intensity 8 - Physical Exam General Appearance: no apparent distress, alert, anxiety Eye Exam: bilateral eye: normal inspection, PERRL, EOMI Ear Exam: bilateral ear: auricle normal, canal normal, TM normal Nasal Exam: normal inspection, sinus tenderness Throat Exam: normal, pharynx normal, moist mucus membranes, No uvula swelling, No voice changes Neck Exam: normal inspection, non-tender, supple, full range of motion Cardiovascular/Respiratory Exam: chest non-tender, no respiratory distress Abdominal Exam: non-tender, spleenomegaly Neurologic Exam: alert, oriented x 3, cooperative, nml cerebellar function, nml station & gait, sensation nml Skin Exam: normal color, warm, dry SpO2 Interpretation: normal O2 Delivery: Room Air - Course Nursing assessment & vital signs reviewed: Yes Ordered Tests: Medication Summary Discontinued Medications Generic Name Dose Route Start Last Admin Trade Name Serjioq PRN Reason Stop Dose Admin Clindamycin HCl 300 mg 08/20/24 22:13 Clindamycin Hcl 150 Mg Capsule PO 08/20/24 22:14 STAT ONE Methylprednisolone Sodium 0 mg 08/20/24 22:13 Succinate 125 mg/ Sterile IM 08/20/24 22:14 Water 2 ml STAT ONE - Progress Progress: unchanged Progress Note: 08/20/24 22:18 My medical decision making and the assignment of low complexity of this patient's medical issue today is based on review of the patient's past medical history, review the patient's medication list, review the patient drug allergy list, history present illness and physical findings on examination. Patient is very adamant that the only thing she wants is an injection of Solu-Medrol intramuscularly and oral dose of clindamycin followed by outpatient steroids and clindamycin. She is refusing everything else. She does not want any radiographic or laboratory studies performed. She will sign refusal of studies/treatment form Differential diagnosis includes but is not limited to sinusitis, pharyngitis, dysphagia Counseled pt/family regarding: diagnosis, need for follow-up Medical Desision Making - Diagnostic Testing Diagnostic test were ordered, analyzed, and reviewed by me: No - Risk of complications The pt has a mod risk of morbidity or mortality based on: Need for prescription drug management - Departure Departure Disposition: Home Clinical Impression: Sinusitis, Pharyngitis Condition: Stable Critical Care Time: No Referrals: STEFANI KING MD [Primary Care Provider] - Follow up/PCP as directed Additional Instructions: Avoid exposure to any kind of smoke. Drink plenty of clear liquids. Take your antibiotics and steroids as prescribed. Call your primary care provider and early intervention specialist on 08/23/2024, to make her events for follow- up appointment for further evaluation management. You will need to be evaluated by your primary care provider and early intervention specialist before we in this emergency department we will provide you with any further steroid or antibiotic use. You have been receiving various antibiotics and steroid medication over the last few weeks. These conditions are now chronic and need to be addressed as an outpatient. Prescriptions: Clindamycin HCl 150 mg [Cleocin 150 mg Capsule] 2 cap PO QID #40 cap Prednisone 10 mg [Deltasone 10 mg] 10 mg PO TID #12 tablet
[2024-08-20 21:47] VITALS: TEMP 98
[2024-08-20] MEDS ORDERED: CLEOCIN 150 MG CAPSULE ONE (22:19)
[2024-08-20] MEDS ORDERED: solu-MEDROL ONE (22:19)
[2024-08-20] MEDS ORDERED: Sterile H2O 10 ml IJ ONE (22:19)
[2024-08-20] MEDS: CLEOCIN 150 MG CAPSULE PO ONE (22:24)
[2024-08-20] MEDS: solu-MEDROL 125 MG, Sterile H2O 10 ml 2 ML IM ONE (22:26)
[2024-08-20 22:27] VITALS: BP 147/92; PULSE 95; RESP 18; O2SAT 98
== END 2024-08-20 22:42 | disposition home or self-care (01) ==
LOC: ED 21:23
DX: J02.9 Acute pharyngitis, unspecified (principal); J32.9 Chronic sinusitis, unspecified; Z79.52 Long term (current) use of systemic steroids; Z79.899 Other long term (current) drug therapy; Z72.0 Tobacco use
CPT/HCPCS: 96372; 99283; J2919; A9270-GY

== ENCOUNTER 2024-08-29 18:00 | Emergency (ER) | payer OTHER ==
[2024-08-29 18:20] VITALS: TEMP 97.1; O2SAT 98
--- NOTE | 2024-08-29 18:35 | ERPHSYRPT ---
- History of Present Illness Time Seen by Provider: 08/29/24 18:34 Source: patient Exam Limitations: no limitations Patient Subjective Stated Complaint: patient stated she used what she thought was cocaine 2 days ago, and then it felt like her head might explode and then it went from her head to her right side and back to her sinuses Triage Nursing Assessment: pt is alert and oriented x3, pupils perrla4, speech is somewhat slurred she has shuffle with her gait. discussed what drug she used two days ago she states she thought she was taking cocaine, but she doesnt think it was and this reaction is similar to one she had before nad she came in to get treated with what she says was ceffin. Allergies/Adverse Reactions: doxycycline Allergy (Verified 08/29/24 18:29) sulfamethoxazole [From Bactrim] Allergy (Verified 08/29/24 18:29) trimethoprim [From Bactrim] Allergy (Verified 08/29/24 18:29) Hx Tetanus, Diphtheria Vaccination/Date Given: Yes Hx Influenza Vaccination/Date Given: No Hx Pneumococcal Vaccination/Date Given: No Travel Risk - International Travel Have you traveled outside of the country in past 3 weeks: No - Emerging Infectious Disease Are you exhibiting symptoms associated with any current EIDs: No Symptoms: Headaches/Body Aches/ - Past Medical History Pertinent Past Medical History: Yes Neurological History: Migraines ENT History: No Pertinent History Cardiac History: No Pertinent History Respiratory History: No Pertinent History Endocrine Medical History: No Pertinent History Musculoskeletal History: Fractures GI Medical History: No Pertinent History History: No Pertinent History Psycho-Social History: Anxiety Female Reproductive Disorders: No Pertinent History Other Medical History: back pain, sinusitis - Past Surgical History Past Surgical History: Yes Neuro Surgical History: No Pertinent History Cardiac: No Pertinent History Respiratory: No Pertinent History Gastrointestinal: No Pertinent History Genitourinary: No Pertinent History Musculoskeletal: Orthopedic Surgery Female Surgical History: Tubal Ligation - Female History Hx Now: No - Social History Smoking Status: Current every day smoker How long have you smoked: 35 yrs Exposure to second hand smoke: No Drug Use: methamphetamines, cocaine - Social Determinants of Health Will the patient participate in the screening: Yes Do you worry about a steady place to live?: No Do you have any problems with any of the following?: No known problems In the past 12 months,have you had to go without utilities?: No Transportation Issues: No Has anyone in your support network made you feel unsafe?: No Have you or anyone in your house had to go w/o enough food: No - Nursing Vital Signs Nursing Vital Signs: Initial Vital Signs Temperature 97.1 F 08/29/24 18:01 Pulse Rate 77 08/29/24 18:01 Respiratory Rate 18 08/29/24 18:01 Blood Pressure 126/102 08/29/24 18:01 O2 Sat by Pulse Oximetry 98 08/29/24 18:01 Pain Scale Pain Intensity 7 - Physical Exam SpO2: 98 - Departure Departure Disposition: Home Clinical Impression: Sinusitis, Drug abuse Condition: Good Critical Care Time: No Referrals: STEFANI KING MD [Primary Care Provider] - Follow up/PCP as directed Instructions: Sinusitis in adults - ED discharge instructions Prescriptions: Cefdinir 300 mg PO BID 7 Days #14 cap predniSONE [Prednisone] 20 mg PO DAILY 5 Days #5 tablet
[2024-08-29] MEDS ORDERED: Rocephin 500 MG INJ ONE (18:40)
[2024-08-29] MEDS ORDERED: Depo-Medrol 80 MG/ML ONE (18:40)
[2024-08-29] MEDS ORDERED: XYLOCAINE 1% HCL 20 ML MDV ONE (18:41)
[2024-08-29] MEDS: Depo-Medrol 40 MG/ML IM ONE (18:43)
[2024-08-29] MEDS: Depo-Medrol 80 MG/ML IM ONE (18:43)
[2024-08-29] MEDS: Rocephin 500 MG INJ IM ONE (18:44)
[2024-08-29 19:21] VITALS: BP 119/96; PULSE 94; RESP 18
== END 2024-08-29 19:21 | disposition home or self-care (01) ==
LOC: ED 18:00
DX: J32.9 Chronic sinusitis, unspecified (principal); F19.10 Other psychoactive substance abuse, uncomplicated; Z79.52 Long term (current) use of systemic steroids; Z72.0 Tobacco use
CPT/HCPCS: 96372; 99282; 99284; J0696